=== PATIENT | female | born 1950 | race Caucasian/White ===

== ENCOUNTER 2016-11-25 16:08 | Inpatient (IN) | payer BC ==
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
[2016-11-25 16:25] VITALS: BMI 45.4
[2016-11-25] MEDS ORDERED: ALBUTEROL SO4 2.5/IPRATROPIUM 0.5 INH SOL 3 ML VIAL.NEB. NEB ONE ×3 (16:40→18:20)
[2016-11-25] MEDS ORDERED: predniSONE 20 MG TABLET (UD) PO ONE (16:59)
[2016-11-25] MEDS ORDERED: MAGNESIUM SULF 50% (8.12 MEQ/2 ML-1 GM VIAL) IVPB ONE ×2 (16:59→17:04)
[2016-11-25] MEDS ORDERED: AZITHROMYCIN IVPB 500 MG in DEXTROSE 5%-WATER - 250 ML IVPB ONE (17:10)
[2016-11-25 17:23] LABS: MCHC 33.7 g/dl (32.0-36.0); MEAN CELL VOLUME 91.9 fl (80-96); MEAN PLT VOLUME 8.2 fl (7.5-11.1); PLATELET COUNT 335 K/MM3 (134-434); RDW 13.6 % (11.6-15.6); WHITE BLOOD COUNT 6.6 K/mm3 (4.0-10.0)
[2016-11-25] MEDS ORDERED: AZITHROMYCIN IVPB 250 ML IVPB ONE (17:42)
--- NOTE | 2016-11-25 17:48 | PDOC ---
Attending Attestation - Resident Resident Name: DanetteRaphaela - ED Attending Attestation I have performed the following: I have examined & evaluated the patient, The case was reviewed & discussed with the resident, I agree w/resident's findings & plan, Exceptions are as noted - HPI HPI: 11/25/16 17:46 66-year-old female with past medical history of COPD, hypertension, hyperlipidemia, depression presents to the emergency department for 5 days of fever and worsening wheezing and chest congestion. MAXIMUM TEMPERATURE was 102 at home. The patient reports that she was treated month ago with steroids and Levaquin which improved her symptoms. However, patient now started feel short of breath and wheezing significantly. Denies chest pain. - Physicial Exam PE: 11/25/16 17:47 GENERAL: Awake, alert, and fully oriented, in no acute distress. HEAD: No signs of trauma EYES: PERRLA, EOMI, sclera anicteric, conjunctiva clear ENT: Auricles normal inspection, hearing grossly normal, nares patent, oropharynx clear without exudates. NECK: Normal ROM, supple, no lymphadenopathy, JVD, or masses LUNGS: Tight breath sounds and expiratory wheezing bilaterally HEART: Regular rate and rhythm, normal S1 and S2, no murmurs, rubs or gallops ABDOMEN: Soft, nontender, normoactive bowel sounds. No guarding, no rebound. No masses EXTREMITIES: Normal range of motion, no edema. No clubbing or cyanosis. No cords, erythema, or tenderness NEUROLOGICAL: Cranial nerves II through XII grossly intact. Normal speech, normal gait SKIN: Warm, Dry, normal turgor, no rashes or lesions noted. - Medical Decision Making 11/25/16 17:47 Chest x-ray reviewed. No evidence of pneumonia. However, the patient's significant wheezy suggestive of COPD exacerbation. We'll give nebulizers, steroids, empiric IV azithromycin. We'll need to consider admission if symptoms do not improve. ECG: NSR 75, no std/noemy, normal axis, normal intervals, TWI V2, QTC 509 msec
[2016-11-25 17:59] LABS: ALBUMIN 3.5 g/dl (3.4-5.0); ANION GAP 11 (8-16); BILIRUBIN,TOTAL 0.5 mg/dL (0.2-1.0); CALCIUM 8.4 mg/dL (8.5-10.1); CO2 28 mmol/L (21-32); CREATININE 0.7 mg/dL (0.55-1.02); GLUCOSE,RANDOM 135 mg/dL (74-106); SGOT/AST 28 U/L (15-37); SGPT/ALT 44 U/L (12-78)
[2016-11-25 18:00] LABS: ALK PHOS 82 U/L (45-117); TOT PROT 6.9 g/dl (6.4-8.2)
[2016-11-25 18:21] LABS: TROPONIN I < 0.02 ng/ml (0.00-0.05)
[2016-11-25] MEDS ORDERED: ROSUVASTATIN CA 10 MG TABLET (FP) PO SCH (22:00)
--- NOTE | 2016-11-25 23:04 | HP ---
Admitting History and Physical - Admission Chief Complaint: fever sob wheezing History of Present Illness: copd exacerbation with fever 101 then 100 malaise, headache was treated last month with levofloxacin and prednisone did not take flu and pneumococcal vaccine she is current smoker poor appetite, weight loss no nausea or vomiting History Source: Patient - Past Medical History Pulmonary: Yes: COPD - Smoking History Smoking history: Current every day smoker Have you smoked in the past 12 months: Yes Aproximately how many cigarettes per day: 6 - Alcohol/Substance Use Hx Alcohol Use: No Home Medications - Allergies Allergies/Adverse Reactions: Allergies Allergy/AdvReac Type Severity Reaction Status Date / Time No Known Drug Allergies Allergy Verified 11/25/16 21:07 CATS Allergy Uncoded 11/25/16 16:25 - Home Medications Home Medications: Ambulatory Orders Atenolol [Tenormin -] 50 mg PO DAILY 04/19/13 Albuterol Sulfate Inhaler - [Ventolin HFA Inhaler -] 1 - 2 inh PO QID #1 inhaler 03/01/15 Aspirin [Ecotrin] 81 mg PO DAILY 03/01/15 Cholecalciferol (Vitamin D3) [Vitamin D3] 1,000 unit PO DAILY 03/01/15 Quetiapine Fumarate [Seroquel -] 12.5 mg PO HS 03/01/15 Rosuvastatin Calcium [Crestor] 10 mg PO HS 03/01/15 Zolpidem Tartrate [Ambien] 10 mg PO HS 03/01/15 Review of Systems - Review of Systems Constitutional: reports: Chills, Fever, Loss of Appetite, Malaise, Unintentional Wgt. Loss Eyes: reports: No Symptoms HENT: reports: Nasal Congestion Neck: reports: No Symptoms Cardiovascular: reports: No Symptoms Respiratory: reports: Cough, SOB, SOB on Exertion, Wheezing Gastrointestinal: reports: No Symptoms Genitourinary: reports: No Symptoms Breasts: reports: No Symptoms Reported Integumentary: reports: No Symptoms Neurological: reports: No Symptoms Endocrine: reports: No Symptoms Hematology/Lymphatic: reports: No Symptoms Psychiatric: reports: No Symptoms Physical Examination Vital Signs: Vital Signs Temperature 98.7 F 11/25/16 16:22 Pulse Rate 63 11/25/16 19:44 Respiratory Rate 20 11/25/16 19:44 Blood Pressure 114/74 11/25/16 19:44 O2 Sat by Pulse Oximetry (%) 93 L 11/25/16 19:44 Constitutional: Yes: Obese Eyes: Yes: WNL, Conjunctiva Clear, EOM Intact HENT: Yes: WNL, Atraumatic, Normocephalic Neck: Yes: WNL, Supple, Trachea Midline Cardiovascular: Yes: WNL, Regular Rate and Rhythm Respiratory: Yes: Accessory Muscle Use, Wheezes Gastrointestinal: Yes: WNL, Normal Bowel Sounds Renal/: Yes: WNL Breast(s): Yes: WNL Musculoskeletal: Yes: WNL Extremities: Yes: WNL Edema: No Integumentary: Yes: WNL Neurological: Yes: WNL, Alert, Oriented ...Motor Strength: WNL Psychiatric: Yes: WNL Assessment/Plan acute resp failure copd acute exacerbation with fever headaches r/o lower resp tract nfection cxr is s infiltrate with diffuse aeration probable panlobular acute sinusitis? obesity current smoker mild elev BNP- r/o underlying heart disease r/o influenza Plan- iv corticosteroids albuterol pulm consult ID consult
[2016-11-25] MEDS: QUEtiapine FUMARATE 25 MG TABLET (FP) PO SCH (23:41)
[2016-11-25] MEDS: ZOLPIDEM TARTRATE 5 MG TABLET PO PRN (23:42)
[2016-11-25] MEDS: NICOTINE 21 MG/24 HOURS TOPICAL PATCH TD SCH (23:49)
[2016-11-26] MEDS: ASPIRIN COATED 81 MG TABLET.EC PO SCH ×2 (00:10→21:42)
[2016-11-26] MEDS: ALBUTEROL SO4 2.5/IPRATROPIUM 0.5 INH SOL 3 ML VIAL.NEB. NEB SCH ×3 (01:15→11:48)
[2016-11-26] MEDS: HYDROCORTISONE SOD SUCCINATE 100 MG/2 ML VIAL IVPB SCH ×3 (02:41→17:46)
--- NOTE | 2016-11-26 08:32 | PN ---
Progress Note (short form) - Note Progress Note: Cardiology Consult for Steven Dicated IMP: Chronic COPD, smoker Likely acute exacerbation chronic COPD triggered by viral illness/URI Chronic HTN Obesity with suspected PINKY and chronic diastolic dysfx REC: Pulmonary evaluation and optimization as per PMD and Pulmonary Echo to assess LVEF and for presence of PHTN Would not diurese at this time unless becomes clinically volume overloaded which can happen at times with steroid Rx
[2016-11-26] MEDS ORDERED: ASPIRIN COATED 81 MG TABLET.EC PO SCH (10:00)
[2016-11-26] MEDS ORDERED: CEFTRIAXONE 1 GM in DEXTROSE 5%-WATER - 50 ML IVPB SCH (10:00)
[2016-11-26] MEDS: NICOTINE 21 MG/24 HOURS TOPICAL PATCH TD SCH (10:08)
[2016-11-26] MEDS: CHOLECALCIFEROL (VITAMIN D3) 1,000 UNIT TABLET (FP) PO SCH (10:08)
[2016-11-26] MEDS: cefTRIAXone 1 GM/50 ML BAG (PRE-DOCKED) IVPB SCH (10:08)
--- NOTE | 2016-11-26 10:14 | CONS ---
DATE OF CONSULTATION: 11/26/2016 REQUESTING PHYSICIAN: Al Doyle MD CHIEF COMPLAINT: Cough, fever, shortness of breath. HISTORY OF PRESENT ILLNESS: A 66-year-old female with chronic smoking, chronic COPD, hypertension whose history of present illness began about 4 weeks ago when she began experiencing a dry cough and sore throat at which time she was evaluated by her primary care physician and treated with a cough or antibiotics and prednisone. She reports initial improvement for about 1 week and then began feeling cough with congestion, unable to loosen her phlegm. This then progressed into fevers for about 4 days of 100-102 with no improvement prompting her to come to the emergency room last night for cough, fever, and associated shortness of breath. She denies chest pain, edema, PND, or orthopnea. She denies prior cardiac history. No previous myocardial infarctions. Denies history of coronary revascularization. PAST MEDICAL HISTORY: Insomnia, hyperlipidemia, possible depression, chronic COPD. ALLERGIES: CATS. MEDICATIONS: Home medications: Ambien 10 nightly, Crestor 10 nightly, Seroquel 12.5 nightly, vitamin D3 takes 1000 units daily, atenolol 50 mg daily, aspirin 81 mg daily, albuterol as needed. Medications here include: Albuterol q.i.d. p.r.n., aspirin 81 daily, atenolol 50 mg daily, ceftriaxone 1 g IV daily, vitamin D3 takes 1000 units daily, Solu-Cortef 100 mg IV q.8, icotine patch, Seroquel 12.5 nightly, Crestor 10 nightly, Ambien 10 nightly p.r.n. FAMILY HISTORY: Noncontributory. SOCIAL HISTORY: The patient smokes 6 cigarettes a day. Denies alcohol. 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 Lives alone. PHYSICAL EXAMINATION: Vital Signs: She is afebrile on physical exam with blood pressure of 131/70, O2 saturation 96 on 3 L. Neck: No JVD. Heart: S1, S2, regular. No murmurs. Chest: Scattered rhonchi and mild expiratory wheezing diffusely. Abdomen: Obese, soft, nontender. Extremities: No significant edema. Chest x-ray report was reviewed. No acute infiltrates. LABS: White count 6.6, hematocrit 43, platelets 335. Sodium 134, potassium 4.3, creatinine 0.7, lactic acid 2.4. LFTs were normal. CK and troponin were negative x1 set. BNP was mildly above the accepted upper limit of normal at 422. EKG showed normal sinus at 75 beats per minute with nonspecific ST changes and a mildly prolonged QT interval. IMPRESSION: 1. Chronic obstructive pulmonary disease, chronic smoker. 2. Likely acute on chronic exacerbation of chronic obstructive pulmonary disease triggered by a viral illness/upper respiratory infection. 3. Chronic, well-controlled hypertension. 4. Obesity with suspected obstructive sleep apnea and probable chronic diastolic dysfunction secondary to hypertension and suspected obstructive sleep apnea. RECOMMENDATIONS: 1. Pulmonary evaluation and optimization of antibiotics, steroids, and inhalers as per primary medical doctor and Pulmonary. 2. We will obtain an echocardiogram to assess LV function and to check for the presence of pulmonary hypertension. 3. BNP is at the upper limit of normal. I would not diurese her at this time unless she becomes clinically volume overloaded, which can sometimes happen with steroid treatment. 4. The QT interval is mildly prolonged. This may be due to Seroquel. We will obtain Holter monitor to assess for any ventricular ectopy and check daily EKGs. Please keep potassium greater than 4 and magnesium greater than 2. Kody Archer dictating for Dr. Harris. Erma [id number]
[2016-11-26] MEDS: ATENOLOL 50 MG TABLET (FP) PO SCH (10:21)
--- NOTE | 2016-11-26 13:15 | PN ---
Progress Note (short form) - Note Progress Note: ID consult dictated 66 year old female with obesity, copd, active smoker- lives alone, deveropd cough and chest congestion mid October- she took a day course of levaquin and prednisone and felt better, about one week later she developed fever, chills , chest congestion and headache- she spoke to her PMD and took another course of levaquin and prednisone. Her fevers resolved but she had continued chest congestion, she took mucinex for one week with no improvement and came to ED she has not had fever for one week no nausea or vomiting no hemoptysis nonproductive cough no history TB [place] citizen- here for thirty years severely depressed, never goes out of her apt, groceries delivered! copd exacerbation ?bronchitis possible OSAS continue rocephin/steroids/nebs consider Chest CT smoking cessation weight loss pulmonary evaluation
--- NOTE | 2016-11-26 14:29 | PN ---
Progress Note (short form) - Note Progress Note: copd obese s/o uri, no response to abx and steroids Current Medications Albuterol/Ipratropium (Duoneb -) 1 amp NEB QIDR [facility] Last Admin: 11/26/16 11:48 Dose: 1 amp Aspirin (Ecotrin -) 81 mg PO HS [facility] Last Admin: 11/26/16 00:10 Dose: 81 mg Atenolol (Tenormin -) 50 mg PO DAILY [facility] Last Admin: 11/26/16 10:21 Dose: 50 mg Ceftriaxone Sodium (Rocephin 1gm Ivpb (Pre-Docked)) 1 gm IVPB DAILY [facility] Last Admin: 11/26/16 10:08 Dose: 1 gm Cholecalciferol (Vitamin D3 -) 1,000 unit PO DAILY [facility] Last Admin: 11/26/16 10:08 Dose: 1,000 unit Hydrocortisone Sodium Succinate (Solu-Cortef -) 100 mg IVPB Q8H-IV [facility] Last Admin: 11/26/16 10:08 Dose: 100 mg Nicotine (Nicoderm Patch -) 21 mg TD DAILY [facility] Last Admin: 11/26/16 10:08 Dose: 21 mg Quetiapine Fumarate (Seroquel -) 12.5 mg PO HS [facility] Last Admin: 11/25/16 23:41 Dose: 12.5 mg Rosuvastatin Calcium (Crestor -) 10 mg PO HS [facility] Last Admin: 11/25/16 23:41 Dose: 10 mg Rosuvastatin Calcium (Crestor -) 10 mg PO HS [facility] Zolpidem Tartrate (Ambien -) 10 mg PO HS PRN PRN Reason: INSOMNIA Last Admin: 11/25/16 23:42 Dose: 10 mg Last Vital Signs Temp Pulse Resp BP Pulse Ox 97.8 F 83 20 145/96 95 11/26/16 09:00 11/26/16 09:00 11/26/16 09:00 11/26/16 09:00 11/26/16 09:00 CBC, BMP 11/25/16 16:37 11/25/16 16:37 ID and Cardiology evals appreciated will check ct scan of chest to eval for chest patholoy given she is a smoker acute resp failure copd acute exacerbation with fever headaches r/o lower resp tract nfection cxr is s infiltrate with diffuse aeration probable panlobular acute sinusitis? obesity current smoker mild elev BNP- r/o underlying heart disease r/o influenza Plan- iv corticosteroids albuterol pulm consult ID consult
--- NOTE | 2016-11-26 15:53 | CONS ---
INFECTIOUS DISEASE CONSULTATION DATE OF CONSULTATION: DATE OF DICTATION: 11/26/2016 REQUESTING PHYSICIAN: Al Doyle M.D. This is a 66-year-old woman who has a past medical history of COPD and hypertension and depression. She felt sick sometime around her birthday, which was November 08, 2014. She started having cough and chest congestion. She saw her PMD who gave her 5 days of Levaquin and 7 days of prednisone, which she completed with improvement. Then about a week later she again developed this time fever with cough and wheezing and chest congestion. She called her PMD this time who again prescribed 5 days of Levaquin and 7 days of prednisone, which she took. Upon completion, which was last , last Monday, she continued to have chest congestion. She spoke to her pharmacist and put herself on Mucinex for a week. She continued to have progressive chest congestion. She was unable to sleep and she presented to the emergency room. She reports for the last 1 week she has had no fever at all. The prior week she had fevers and chills. She denies sore throat. The headache has resolved. She has no diarrhea or constipation. She lost about 5 pounds when she was sick, but otherwise there is no nausea or vomiting and she currently reports feeling improved. ALLERGIES: SHE IS ALLERGIC TO CATS. MEDICATIONS: At home includes atenolol, Ventolin inhaler, which she rarely uses, aspirin, vitamin D, Seroquel, and Crestor as well as Ambien. PAST MEDICAL HISTORY: Notable for COPD. She has a history of hypertension, hypercholesterolemia, and depression. SURGICAL HISTORY: Notable for a hysterectomy, right breast cyst removal, and in 2001 she had left ankle surgery and she ultimately had 4 surgeries and the hardware was removed. She reports having been hospitalized in the past for pneumonia and COPD exacerbation. FAMILY HISTORY: Notable for lung cancer in her father. SOCIAL HISTORY: She is . She never goes out. She lives alone in an apartment. She orders her groceries in. She notes she is severely depressed since the of her 3 years ago. She is originally from [place] and she has been in this country for 30 years. She has had during this depression a significant weight gain of at least 20 or 30 pounds. There is no history of any tuberculosis in the past. She is an active smoker and drinks alcohol as well. She smokes about 6 cigarettes a day. REVIEW OF SYSTEMS: Notable for nasal congestion. She has loss of appetite and she has chest congestion with a nonproductive cough. She has resolution of headache and there is no fever. PHYSICAL EXAMINATION: General: She is awake and alert. She reports feeling better since admission. Vital Signs: Temperature of 98, blood pressure of 131/69, pulse of 73, and respiratory rate of 20. Weight: 289 pounds. HEENT: She is normocephalic. Her eyes are anicteric. She has no thrush. Lungs: Diffuse wheezing throughout. Heart: Regular rate and rhythm. Abdomen: Soft. Extremities: Trace pedal edema. LABORATORY DATA: White count of 6.6, hemoglobin of 14.6, and platelets of 335. BUN and creatinine are 11 and 0.7. Liver function tests are normal. Her influenza screen was done which was negative and blood cultures are pending. DIAGNOSTIC DATA: Chest x-ray was done that shows no acute disease. IN SUMMARY: This is an obese 66-year-old woman with severe depression who is having a chronic obstructive pulmonary disease exacerbation. Possible bronchitis. Possible obstructive sleep apnea. I would continue her on Rocephin, steroids, and nebulizers for now. I would consider a chest CT, smoking cessation, and weight loss, and a pulmonary evaluation which is pending at this time. JOSEY DELGADO M.D. [id number]
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
[2016-11-26] MEDS: TIOTROPIUM BROMIDE 18 MCG/INH (DEVICE W/ 5 CAPSULES) IH SCH ×2 (19:53→21:33)
[2016-11-26] MEDS: QUEtiapine FUMARATE 25 MG TABLET (FP) PO SCH (21:41)
[2016-11-26] MEDS: ROSUVASTATIN CA 10 MG TABLET (FP) PO SCH (21:42)
[2016-11-26] MEDS: ZOLPIDEM TARTRATE 5 MG TABLET PO PRN (21:42)
[2016-11-26] MEDS ORDERED: QUEtiapine FUMARATE 25 MG TABLET (FP) PO SCH (22:00)
[2016-11-27] MEDS: ALBUTEROL SO4 2.5/IPRATROPIUM 0.5 INH SOL 3 ML VIAL.NEB. NEB SCH ×5 (00:07→23:34)
[2016-11-27] MEDS: HYDROCORTISONE SOD SUCCINATE 100 MG/2 ML VIAL IVPB SCH ×3 (01:42→18:01)
[2016-11-27 07:16] LABS: MCH 30.9 pg (25.7-33.7); MCHC 33.1 g/dl (32.0-36.0); MEAN CELL VOLUME 93.3 fl (80-96); MEAN PLT VOLUME 8.3 fl (7.5-11.1); PLATELET COUNT 279 K/MM3 (134-434); RDW 13.4 % (11.6-15.6); WHITE BLOOD COUNT 5.6 K/mm3 (4.0-10.0)
[2016-11-27 08:01] LABS: ALBUMIN 3.3 g/dl (3.4-5.0); ALK PHOS 68 U/L (45-117); ANION GAP 11 (8-16); BILIRUBIN,TOTAL 0.4 mg/dL (0.2-1.0); CO2 30 mmol/L (21-32); CREATININE 0.8 mg/dL (0.55-1.02); GLUCOSE,RANDOM 174 mg/dL (74-106); SGOT/AST 15 U/L (15-37); SGPT/ALT 33 U/L (12-78); TOT PROT 6.3 g/dl (6.4-8.2)
[2016-11-27] MEDS: cefTRIAXone 1 GM/50 ML BAG (PRE-DOCKED) IVPB SCH (09:28)
[2016-11-27] MEDS: NICOTINE 21 MG/24 HOURS TOPICAL PATCH TD SCH (09:28)
[2016-11-27] MEDS: TIOTROPIUM BROMIDE 18 MCG/INH (DEVICE W/ 5 CAPSULES) IH SCH (09:30)
[2016-11-27] MEDS: ATENOLOL 50 MG TABLET (FP) PO SCH (09:30)
[2016-11-27] MEDS: CHOLECALCIFEROL (VITAMIN D3) 1,000 UNIT TABLET (FP) PO SCH (09:30)
--- NOTE | 2016-11-27 09:38 | EKG ---
Test Reason : Blood Pressure : / mmHG Vent. Rate : 055 BPM Atrial Rate : 055 BPM P-R Int : 164 ms QRS Dur : 076 ms QT Int : 488 ms P-R-T Axes : -09 022 059 degrees QTc Int : 466 ms SINUS BRADYCARDIA OTHERWISE NORMAL ECG Confirmed by JCARLOS KUMAR MD ([id number]) on 11/27/2016 9:37:53 AM Referred By: Peter GONZALEZ Confirmed By:JCARLOS KUMAR MD
--- NOTE | 2016-11-27 09:43 | EKG ---
Test Reason : Blood Pressure : / mmHG Vent. Rate : 075 BPM Atrial Rate : 075 BPM P-R Int : 158 ms QRS Dur : 076 ms QT Int : 456 ms P-R-T Axes : -14 011 053 degrees QTc Int : 509 ms POOR DATA QUALITY, INTERPRETATION MAY BE ADVERSELY AFFECTED NORMAL SINUS RHYTHM PROLONGED QT NONSPECIFIC ST ABNORMALITY ABNORMAL ECG Confirmed by JCARLOS KUMAR MD ([id number]) on 11/27/2016 9:43:14 AM Referred By: Confirmed By:JCARLOS KUMAR MD
--- NOTE | 2016-11-27 19:43 | PN ---
Progress Note (short form) - Note Progress Note: pulm consult noted copd obese s/o uri, no response to abx and steroids Current Medications Albuterol/Ipratropium (Duoneb -) 1 amp NEB QIDR [facility] Last Admin: 11/27/16 17:51 Dose: 1 amp Aspirin (Ecotrin -) 81 mg PO HS [facility] Last Admin: 11/26/16 21:42 Dose: 81 mg Atenolol (Tenormin -) 50 mg PO DAILY [facility] Last Admin: 11/27/16 09:30 Dose: 50 mg Ceftriaxone Sodium (Rocephin 1gm Ivpb (Pre-Docked)) 1 gm IVPB DAILY [facility] Last Admin: 11/27/16 09:28 Dose: 1 gm Cholecalciferol (Vitamin D3 -) 1,000 unit PO DAILY [facility] Last Admin: 11/27/16 09:30 Dose: 1,000 unit Hydrocortisone Sodium Succinate (Solu-Cortef -) 200 mg IVPB Q8H-IV [facility] Last Admin: 11/27/16 18:01 Dose: 200 mg Nicotine (Nicoderm Patch -) 21 mg TD DAILY [facility] Last Admin: 11/27/16 09:28 Dose: 21 mg Quetiapine Fumarate (Seroquel -) 12.5 mg PO HS [facility] Last Admin: 11/26/16 21:41 Dose: 12.5 mg Rosuvastatin Calcium (Crestor -) 10 mg PO HS [facility] Last Admin: 11/26/16 21:42 Dose: 10 mg Tiotropium [place] (Spiriva -) 1 puff IH DAILY [facility] Last Admin: 11/27/16 09:30 Dose: 1 puff Zolpidem Tartrate (Ambien -) 10 mg PO HS PRN PRN Reason: INSOMNIA Last Admin: 11/26/16 21:42 Dose: 10 mg Last Vital Signs Temp Pulse Resp BP Pulse Ox 97.9 F 65 20 133/67 94 L 11/27/16 17:00 11/27/16 17:00 11/27/16 17:00 11/27/16 17:00 11/27/16 09:00 CBC, BMP 11/27/16 06:00 11/27/16 06:00 ID and Cardiology evals appreciated will check ct scan of chest to eval for chest patholoy given she is a smoker acute resp failure copd acute exacerbation with fever headaches r/o lower resp tract nfection cxr is s infiltrate with diffuse aeration probable panlobular acute sinusitis? obesity current smoker mild elev BNP- r/o underlying heart disease r/o influenza Plan- iv corticosteroids albuterol pulm consult ID consult
[2016-11-27] MEDS ORDERED: LORazepam 0.5 MG TABLET PO PRN (19:48)
[2016-11-27] MEDS: QUEtiapine FUMARATE 25 MG TABLET (FP) PO SCH (22:10)
[2016-11-27] MEDS: ZOLPIDEM TARTRATE 5 MG TABLET PO PRN (22:10)
[2016-11-27] MEDS: ASPIRIN COATED 81 MG TABLET.EC PO SCH (22:10)
[2016-11-27] MEDS: ROSUVASTATIN CA 10 MG TABLET (FP) PO SCH (22:10)
[2016-11-27] MEDS: FLUTICASONE PROP 0.05% 16 GM NASAL SPRAY NS SCH (22:11)
[2016-11-28] MEDS: HYDROCORTISONE SOD SUCCINATE 100 MG/2 ML VIAL IVPB SCH ×3 (01:30→18:16)
[2016-11-28] MEDS: ALBUTEROL SO4 2.5/IPRATROPIUM 0.5 INH SOL 3 ML VIAL.NEB. NEB SCH ×3 (06:40→18:15)
[2016-11-28] MEDS ORDERED: PT OWN MED DRAWER 7, Y5N ONE (09:24)
[2016-11-28] MEDS: LORATADINE 10 MG TABLET PO SCH (09:27)
[2016-11-28] MEDS: ATENOLOL 50 MG TABLET (FP) PO SCH (09:27)
[2016-11-28] MEDS: TIOTROPIUM BROMIDE 18 MCG/INH (DEVICE W/ 5 CAPSULES) IH SCH (09:28)
[2016-11-28] MEDS: FLUTICASONE PROP 0.05% 16 GM NASAL SPRAY NS SCH ×2 (09:28→22:18)
[2016-11-28] MEDS: NICOTINE 21 MG/24 HOURS TOPICAL PATCH TD SCH (09:28)
[2016-11-28] MEDS: CHOLECALCIFEROL (VITAMIN D3) 1,000 UNIT TABLET (FP) PO SCH (09:28)
[2016-11-28] MEDS: cefTRIAXone 1 GM/50 ML BAG (PRE-DOCKED) IVPB SCH (09:30)
[2016-11-28] MEDS ORDERED: HYDROCORTISONE SOD SUCCINATE 2 ML ONE (12:10)
--- NOTE | 2016-11-28 13:22 | PN ---
Progress Note, Physician History of Present Illness: Patient is a 66 year old female with significant PMH of HTN, HLD, Depression and COPD who presents to ED with shortness of breath. She states she had URI symptoms 1month ago including a runny nose and cough. She went to her PCP and was given Levaquin and a course of Methylprednisolone. She felt better up until 1 week ago when she started to feel feverish. She was 102.4 degrees earlier this week and started to develop a cough. No sputum expectorated but she feels very congested. Patient also complains of intermittent chills, & shortness of breath, notably when she lies flat on her back. Patient denies sore throat, visual changes, diarrhea, constipation, nausea, vomiting, chest pain or abdominal pain. - Current Medication List Current Medications: Active Medications Albuterol/Ipratropium (Duoneb -) 1 amp NEB QIDR [facility] Last Admin: 11/28/16 11:08 Dose: 1 amp Aspirin (Ecotrin -) 81 mg PO HS [facility] Last Admin: 11/27/16 22:10 Dose: 81 mg Atenolol (Tenormin -) 50 mg PO DAILY [facility] Last Admin: 11/28/16 09:27 Dose: 50 mg Ceftriaxone Sodium (Rocephin 1gm Ivpb (Pre-Docked)) 1 gm IVPB DAILY [facility] Last Admin: 11/28/16 09:30 Dose: 1 gm Cholecalciferol (Vitamin D3 -) 1,000 unit PO DAILY [facility] Last Admin: 11/28/16 09:28 Dose: 1,000 unit Fluticasone Propionate (Flonase -) 1 spray NS BID [facility] Last Admin: 11/28/16 09:28 Dose: 1 spray Hydrocortisone Sodium Succinate (Solu-Cortef -) 200 mg IVPB Q8H-IV [facility] Last Admin: 11/28/16 12:32 Dose: 200 mg Loratadine (Claritin -) 10 mg PO DAILY [facility] Last Admin: 11/28/16 09:27 Dose: 10 mg Lorazepam (Ativan -) 0.5 mg PO Q12H PRN PRN Reason: ANXIETY Last Admin: 11/28/16 09:45 Dose: 0.5 mg Nicotine (Nicoderm Patch -) 21 mg TD DAILY [facility] Last Admin: 11/28/16 09:28 Dose: 21 mg Quetiapine Fumarate (Seroquel -) 12.5 mg PO HS [facility] Last Admin: 11/27/16 22:10 Dose: 12.5 mg Rosuvastatin Calcium (Crestor -) 10 mg PO HS [facility] Last Admin: 11/27/16 22:10 Dose: 10 mg Tiotropium [place] (Spiriva -) 1 puff IH DAILY [facility] Last Admin: 11/28/16 09:28 Dose: 1 puff Zolpidem Tartrate (Ambien -) 10 mg PO HS PRN PRN Reason: INSOMNIA Last Admin: 11/27/16 22:10 Dose: 10 mg - Objective Vital Signs: Vital Signs Temperature 98.3 F 11/28/16 09:00 Pulse Rate 72 11/28/16 11:07 Respiratory Rate 20 11/28/16 09:00 Blood Pressure 126/70 11/28/16 09:00 O2 Sat by Pulse Oximetry (%) 97 11/28/16 11:07 Eyes: Yes: WNL, Conjunctiva Clear, EOM Intact HENT: Yes: WNL, Atraumatic, Normocephalic Neck: Yes: WNL, Supple, Trachea Midline Cardiovascular: Yes: WNL, Regular Rate and Rhythm Respiratory: Yes: Diminished, Dullness, Rhonchi Gastrointestinal: Yes: WNL, Normal Bowel Sounds Genitourinary: Yes: WNL Musculoskeletal: Yes: WNL Extremities: Yes: WNL Edema: No Integumentary: Yes: WNL Neurological: Yes: WNL, Alert, Oriented ...Motor Strength: WNL Psychiatric: Yes: WNL Assessment/Plan IMP: Chronic COPD, smoker Likely acute exacerbation chronic COPD triggered by viral illness/URI Chronic HTN Obesity with suspected PINKY and chronic diastolic dysfx REC: Pulmonary evaluation and optimization as per PMD and Pulmonary Echo to assess LVEF and for presence of PHTN Would not diurese at this time unless becomes clinically volume overloaded which can happen at times with steroid Rx
--- NOTE | 2016-11-28 14:50 | PN ---
Progress Note (short form) - Note Progress Note: still wheezing still with nasal congestion Vital Signs Period Temp Pulse Resp BP Sys/Negron Pulse Ox Last 24 Hr 97.7 F-98.3 F 65-80 20-20 126-164/63-87 95-97 cor-rrr llungs bilateral wheeze abd soft,nt ext no edema CBC, BMP 11/27/16 06:00 11/27/16 06:00 Current Medications Albuterol/Ipratropium (Duoneb -) 1 amp NEB QIDR [facility] Last Admin: 11/28/16 11:08 Dose: 1 amp Aspirin (Ecotrin -) 81 mg PO HS [facility] Last Admin: 11/27/16 22:10 Dose: 81 mg Atenolol (Tenormin -) 50 mg PO DAILY [facility] Last Admin: 11/28/16 09:27 Dose: 50 mg Ceftriaxone Sodium (Rocephin 1gm Ivpb (Pre-Docked)) 1 gm IVPB DAILY [facility] Last Admin: 11/28/16 09:30 Dose: 1 gm Cholecalciferol (Vitamin D3 -) 1,000 unit PO DAILY [facility] Last Admin: 11/28/16 09:28 Dose: 1,000 unit Fluticasone Propionate (Flonase -) 1 spray NS BID [facility] Last Admin: 11/28/16 09:28 Dose: 1 spray Hydrocortisone Sodium Succinate (Solu-Cortef -) 200 mg IVPB Q8H-IV [facility] Last Admin: 11/28/16 12:32 Dose: 200 mg Loratadine (Claritin -) 10 mg PO DAILY [facility] Last Admin: 11/28/16 09:27 Dose: 10 mg Lorazepam (Ativan -) 0.5 mg PO Q12H PRN PRN Reason: ANXIETY Last Admin: 11/28/16 09:45 Dose: 0.5 mg Nicotine (Nicoderm Patch -) 21 mg TD DAILY [facility] Last Admin: 11/28/16 09:28 Dose: 21 mg Quetiapine Fumarate (Seroquel -) 12.5 mg PO HS [facility] Last Admin: 11/27/16 22:10 Dose: 12.5 mg Rosuvastatin Calcium (Crestor -) 10 mg PO HS [facility] Last Admin: 11/27/16 22:10 Dose: 10 mg Tiotropium [place] (Spiriva -) 1 puff IH DAILY [facility] Last Admin: 11/28/16 09:28 Dose: 1 puff Zolpidem Tartrate (Ambien -) 10 mg PO HS PRN PRN Reason: INSOMNIA Last Admin: 11/27/16 22:10 Dose: [address] no infiltrate sinus ct no sinusitis a/p copd exacerbation- rocephin to continue per pulmonary (note reviewed) check rsv antigen ?viral smoking cessation obesity
--- NOTE | 2016-11-28 15:53 | HOL ---
Hook-up date: 2016-11-27 14:37:00 Duration: 22:55:00 Test Indications: PROLONGED QT Medications: 50423 QRS complexes 3 Ventricular ectopics which represent <1 % of total QRS comp. 421 Supraventricular ectopics which represent <1 % of total QRS comp. * Paced QRS complexs which represent % of total QRS comp. 4 % of Time Classified as Noise VENTRICULAR ECTOPY 3 Isolated 0 Bigeminal Cycles 0 Couplets 0 Runs 0 Beats in Runs * Beats LONGEST at * BPM at :: -- * Beats FASTEST at * BPM at :: -- SUPRAVENTRICULAR ECTOPY 317 Isolated 17 Couplets 15 Runs 70 Beats in Runs 11 Beats LONGEST at 128 BPM at 07:28:17 2016-11-28 5 Beats FASTEST at 137 BPM at 07:28:12 2016-11-28 HEART RATES 49 MIN at 03:47:48 2016-11-28 74 AVG 110 MAX at 09:49:08 2016-11-28 LONGEST RR 1.400 secs at 02:18:55 2016-11-28 1. BASELINE RHYTHM APPEARS TO BE SINUS RHYTHM WITH AVERAGE HR OF 74 BPM. RATES VARIED BETWEEN 49 BPM TO 110 BPM. 2. RARE VENTRICULAR ECTOPIES (PVCS) 3. OCCASIONAL ATRIAL ECTOPIES INCLUDING 317 APCS AND 17 COULPLETS. 15 RUNS OF NONSUSTAINED ATRIAL ARRHYTHMIAS LIKELY REPRESENT ATRIAL TACHYCARDIA. 4. NO ST-T WAVE VARIATIONS WERE SEEN SCANNED BY ADELITA BARRAGAN 11/28/2016 NO DIARY SUBMITTED Confirmed by SHANEL GORDON MD ([id number]) on 11/28/2016 3:52:56 PM Referred By: Overread By: SHANEL GORDON MD
--- NOTE | 2016-11-28 18:07 | PN ---
Progress Note, Physician History of Present Illness: Pt less dyspneic though still has mild wheezing and ORTEZ - Current Medication List Current Medications: Active Medications Albuterol/Ipratropium (Duoneb -) 1 amp NEB QIDR [facility] Last Admin: 11/28/16 11:08 Dose: 1 amp Aspirin (Ecotrin -) 81 mg PO HS [facility] Last Admin: 11/27/16 22:10 Dose: 81 mg Atenolol (Tenormin -) 50 mg PO DAILY [facility] Last Admin: 11/28/16 09:27 Dose: 50 mg Ceftriaxone Sodium (Rocephin 1gm Ivpb (Pre-Docked)) 1 gm IVPB DAILY [facility] Last Admin: 11/28/16 09:30 Dose: 1 gm Cholecalciferol (Vitamin D3 -) 1,000 unit PO DAILY [facility] Last Admin: 11/28/16 09:28 Dose: 1,000 unit Fluticasone Propionate (Flonase -) 1 spray NS BID [facility] Last Admin: 11/28/16 09:28 Dose: 1 spray Hydrocortisone Sodium Succinate (Solu-Cortef -) 200 mg IVPB Q8H-IV [facility] Last Admin: 11/28/16 12:32 Dose: 200 mg Loratadine (Claritin -) 10 mg PO DAILY [facility] Last Admin: 11/28/16 09:27 Dose: 10 mg Lorazepam (Ativan -) 0.5 mg PO Q12H PRN PRN Reason: ANXIETY Last Admin: 11/28/16 09:45 Dose: 0.5 mg Nicotine (Nicoderm Patch -) 21 mg TD DAILY [facility] Last Admin: 11/28/16 09:28 Dose: 21 mg Quetiapine Fumarate (Seroquel -) 12.5 mg PO HS [facility] Last Admin: 11/27/16 22:10 Dose: 12.5 mg Rosuvastatin Calcium (Crestor -) 10 mg PO HS [facility] Last Admin: 11/27/16 22:10 Dose: 10 mg Tiotropium [place] (Spiriva -) 1 puff IH DAILY [facility] Last Admin: 11/28/16 09:28 Dose: 1 puff Zolpidem Tartrate (Ambien -) 10 mg PO HS PRN PRN Reason: INSOMNIA Last Admin: 11/27/16 22:10 Dose: 10 mg - Objective Vital Signs: Vital Signs Temperature 98.0 F 11/28/16 17:47 Pulse Rate 64 11/28/16 17:47 Respiratory Rate 20 11/28/16 17:47 Blood Pressure 147/77 11/28/16 17:47 O2 Sat by Pulse Oximetry (%) 97 11/28/16 11:07 Constitutional: Yes: No Distress Eyes: No: Sclera Icterus HENT: Yes: Atraumatic, Normocephalic Neck: Yes: Supple, Trachea Midline Cardiovascular: Yes: Regular Rate and Rhythm. No: JVD Respiratory: Yes: Wheezes (mild bilateral) Gastrointestinal: Yes: Soft. No: Tenderness Edema: No Neurological: Yes: Alert, Oriented Problem List - Problems (1) Pneumonia Code(s): J18.9 - PNEUMONIA, UNSPECIFIED ORGANISM (2) Chronic obstructive pulmonary disease with acute exacerbation Code(s): J44.1 - CHRONIC OBSTRUCTIVE PULMONARY DISEASE W (ACUTE) EXACERBATION (3) Pulmonary infiltrate present on computed tomography Code(s): R91.8 - OTHER NONSPECIFIC ABNORMAL FINDING OF LUNG FIELD Assessment/Plan 66 year old smoker with recent upper respiratory infections. Initially improved with P.O. steroids and Levaquin and then redeveloped similar symptoms despite tx again with same meds. Pt developed progressive dyspnea and wheezing and fever to 102. Pneumonia- CT shows small area of ground glass appearing infiltrate on image 42 peripheral left lung. No old CT for comparison on admission. Influenza antigens negative. Infiltrate could be secondary to viral or bacterial pneumonia, an area of inflammation or scar, r/o early bronchioloalveolar cell carcinoma (in situ pulmonary adenocarcinoma). Old CT (2011) now available for review; there are similar changes in the same area on the old scan though they may have slightly increased (radiologist feels there is no significant change). Acute Exacerbation COPD: improving but still with significant bronchospasm and dyspnea. Suggest: Increase hydrocortisone to 200 mg IV q 6 hours then start taper in 24-48 hours Spiriva Inhaled bronchodilators O2 to maintain SaO2>90 Pt counseled to stop smoking F/u CT scan chest in several months to f/u on infiltrate Annual low dose screening CT scan in light of long history of cigarette use Pneumonia vaccines and annual influenza vaccine Pulmonary function tests post discharge Bedside Pulmonary function tests ordered.
--- NOTE | 2016-11-28 19:46 | PN ---
Progress Note (short form) - Note Progress Note: feeling better, more appetite still with sob, gen weakness cardiol and pulm f/u appreciated pulm consult noted copd obese s/o uri, no response to abx and steroids Current Medications Albuterol/Ipratropium (Duoneb -) 1 amp NEB QIDR [facility] Last Admin: 11/28/16 18:15 Dose: 1 amp Aspirin (Ecotrin -) 81 mg PO HS [facility] Last Admin: 11/27/16 22:10 Dose: 81 mg Atenolol (Tenormin -) 50 mg PO DAILY [facility] Last Admin: 11/28/16 09:27 Dose: 50 mg Ceftriaxone Sodium (Rocephin 1gm Ivpb (Pre-Docked)) 1 gm IVPB DAILY [facility] Last Admin: 11/28/16 09:30 Dose: 1 gm Cholecalciferol (Vitamin D3 -) 1,000 unit PO DAILY [facility] Last Admin: 11/28/16 09:28 Dose: 1,000 unit Fluticasone Propionate (Flonase -) 1 spray NS BID [facility] Last Admin: 11/28/16 09:28 Dose: 1 spray Hydrocortisone Sodium Succinate (Solu-Cortef -) 200 mg IVPB Q6H [facility] Last Admin: 11/28/16 18:16 Dose: 200 mg Loratadine (Claritin -) 10 mg PO DAILY [facility] Last Admin: 11/28/16 09:27 Dose: 10 mg Lorazepam (Ativan -) 0.5 mg PO Q12H PRN PRN Reason: ANXIETY Last Admin: 11/28/16 09:45 Dose: 0.5 mg Nicotine (Nicoderm Patch -) 21 mg TD DAILY [facility] Last Admin: 11/28/16 09:28 Dose: 21 mg Quetiapine Fumarate (Seroquel -) 12.5 mg PO HS [facility] Last Admin: 11/27/16 22:10 Dose: 12.5 mg Rosuvastatin Calcium (Crestor -) 10 mg PO HS [facility] Last Admin: 11/27/16 22:10 Dose: 10 mg Tiotropium [place] (Spiriva -) 1 puff IH DAILY [facility] Last Admin: 11/28/16 09:28 Dose: 1 puff Zolpidem Tartrate (Ambien -) 10 mg PO HS PRN PRN Reason: INSOMNIA Last Admin: 11/27/16 22:10 Dose: 10 mg Last Vital Signs Temp Pulse Resp BP Pulse Ox 98.0 F 64 20 147/77 97 11/28/16 17:47 11/28/16 17:47 11/28/16 17:47 11/28/16 17:47 11/28/16 11:07 CBC, BMP 11/27/16 06:00 11/27/16 06:00 ID and Cardiology evals appreciated will check ct scan of chest to eval for chest patholoy given she is a smoker acute resp failure copd acute exacerbation with fever headaches r/o lower resp tract nfection cxr is s infiltrate with diffuse aeration probable panlobular acute sinusitis? obesity current smoker mild elev BNP- r/o underlying heart disease r/o influenza Plan- iv corticosteroids albuterol
[2016-11-28] MEDS: ZOLPIDEM TARTRATE 5 MG TABLET PO PRN (22:17)
[2016-11-28] MEDS: QUEtiapine FUMARATE 25 MG TABLET (FP) PO SCH (22:17)
[2016-11-28] MEDS: ASPIRIN COATED 81 MG TABLET.EC PO SCH (22:17)
[2016-11-28] MEDS: ROSUVASTATIN CA 10 MG TABLET (FP) PO SCH (22:18)
[2016-11-29] MEDS: HYDROCORTISONE SOD SUCCINATE 100 MG/2 ML VIAL IVPB SCH ×5 (00:14→19:57)
[2016-11-29] MEDS: ALBUTEROL SO4 2.5/IPRATROPIUM 0.5 INH SOL 3 ML VIAL.NEB. NEB SCH ×4 (00:14→17:55)
[2016-11-29 07:34] LABS: MCH 31.7 pg (25.7-33.7); MEAN CELL VOLUME 93.3 fl (80-96); MEAN PLT VOLUME 8.3 fl (7.5-11.1); PLATELET COUNT 301 K/MM3 (134-434); RDW 13.5 % (11.6-15.6); WHITE BLOOD COUNT 6.5 K/mm3 (4.0-10.0)
[2016-11-29 09:18] LABS: ALBUMIN 2.8 g/dl (3.4-5.0); ALK PHOS 51 U/L (45-117); ANION GAP 12 (8-16); BILIRUBIN,TOTAL 0.3 mg/dL (0.2-1.0); CALCIUM 8.2 mg/dL (8.5-10.1); CHOLESTEROL 148 mg/dL (50-200); CO2 27 mmol/L (21-32); CREATININE 0.7 mg/dL (0.55-1.02); GLUCOSE,RANDOM 155 mg/dL (74-106); SGOT/AST 13 U/L (15-37); SGPT/ALT 27 U/L (12-78); TOT PROT 5.7 g/dl (6.4-8.2)
[2016-11-29 09:35] LABS: LDL CHOLESTEROL (ONLY SJRH) 66 mg/dL (5-100)
[2016-11-29] MEDS: ATENOLOL 50 MG TABLET (FP) PO SCH (10:41)
[2016-11-29] MEDS: TIOTROPIUM BROMIDE 18 MCG/INH (DEVICE W/ 5 CAPSULES) IH SCH (10:41)
[2016-11-29] MEDS: LORATADINE 10 MG TABLET PO SCH (10:41)
[2016-11-29] MEDS: CHOLECALCIFEROL (VITAMIN D3) 1,000 UNIT TABLET (FP) PO SCH (10:41)
[2016-11-29] MEDS: cefTRIAXone 1 GM/50 ML BAG (PRE-DOCKED) IVPB SCH (10:41)
[2016-11-29] MEDS: NICOTINE 21 MG/24 HOURS TOPICAL PATCH TD SCH (10:41)
[2016-11-29] MEDS: FLUTICASONE PROP 0.05% 16 GM NASAL SPRAY NS SCH ×2 (10:41→22:04)
--- NOTE | 2016-11-29 12:36 | PN ---
Progress Note, Physician Chief Complaint: Pt A&Ox3; feels more nasally congested today (blames it on waiting in a cold room for "10 minutes" before a procedure was done), and only feels comfortable if she lies on her left side with her head elevated by a pillow. History of Present Illness: Patient is a 66 year old female (олег Grayson) with significant PMH of HTN, HLD, Depression and COPD who presents to ED with shortness of breath. She states she had URI symptoms 1month ago including a runny nose and cough. She went to her PCP and was given Levaquin and a course of Methylprednisolone. She felt better up until 1 week ago when she started to feel feverish. She was 102.4 degrees earlier this week and started to develop a cough. No sputum expectorated but she feels very congested. Patient also complains of intermittent chills, & shortness of breath, notably when she lies flat on her back. Patient denies sore throat, visual changes, diarrhea, constipation, nausea, vomiting, chest pain or abdominal pain. - Current Medication List Current Medications: Active Medications Albuterol/Ipratropium (Duoneb -) 1 amp NEB QIDR [facility] Last Admin: 11/29/16 07:18 Dose: 1 amp Aspirin (Ecotrin -) 81 mg PO HS [facility] Last Admin: 11/28/16 22:17 Dose: 81 mg Atenolol (Tenormin -) 50 mg PO DAILY [facility] Last Admin: 11/29/16 10:41 Dose: 50 mg Ceftriaxone Sodium (Rocephin 1gm Ivpb (Pre-Docked)) 1 gm IVPB DAILY [facility] Last Admin: 11/29/16 10:41 Dose: 1 gm Cholecalciferol (Vitamin D3 -) 1,000 unit PO DAILY [facility] Last Admin: 11/29/16 10:41 Dose: 1,000 unit Fluticasone Propionate (Flonase -) 1 spray NS BID [facility] Last Admin: 11/29/16 10:41 Dose: 1 spray Hydrocortisone Sodium Succinate (Solu-Cortef -) 200 mg IVPB Q6H [facility] Last Admin: 11/29/16 12:35 Dose: 200 mg Loratadine (Claritin -) 10 mg PO DAILY [facility] Last Admin: 11/29/16 10:41 Dose: 10 mg Lorazepam (Ativan -) 0.5 mg PO Q12H PRN PRN Reason: ANXIETY Last Admin: 11/28/16 09:45 Dose: 0.5 mg Nicotine (Nicoderm Patch -) 21 mg TD DAILY [facility] Last Admin: 11/29/16 10:41 Dose: 21 mg Quetiapine Fumarate (Seroquel -) 12.5 mg PO HS [facility] Last Admin: 11/28/16 22:17 Dose: 12.5 mg Rosuvastatin Calcium (Crestor -) 10 mg PO HS [facility] Last Admin: 11/28/16 22:18 Dose: 10 mg Tiotropium [place] (Spiriva -) 1 puff IH DAILY [facility] Last Admin: 11/29/16 10:41 Dose: 1 puff Zolpidem Tartrate (Ambien -) 10 mg PO HS PRN PRN Reason: INSOMNIA Last Admin: 11/28/16 22:17 Dose: 10 mg - Objective Vital Signs: Vital Signs Temperature 98.0 F 11/29/16 09:16 Pulse Rate 93 H 11/29/16 09:16 Respiratory Rate 20 11/29/16 09:16 Blood Pressure 135/65 11/29/16 09:16 O2 Sat by Pulse Oximetry (%) 94 L 11/28/16 21:00 Constitutional: Yes: Anxious Eyes: Yes: WNL HENT: Yes: WNL Neck: Yes: WNL Cardiovascular: Yes: Regular Rate and Rhythm Respiratory: Yes: Regular Gastrointestinal: Yes: Soft, Abdomen, Obese ...Rectal Exam: Yes: Deferred Genitourinary: No: Anuria Breast(s): Yes: WNL Musculoskeletal: Yes: Muscle Weakness Extremities: Yes: Cool Edema: Yes Edema: LLE: 1+ (nonpitting), RLE: 1+ (nonpitting) Peripheral Pulses WNL: Yes Integumentary: Yes: WNL Neurological: Yes: Alert, Oriented, Weakness Psychiatric: Yes: Alert, Oriented Labs: CBC, BMP 11/29/16 06:00 11/29/16 06:00 Abnormal Lab Results 11/29/16 11/29/16 06:00 06:00 BUN 19 H Random Glucose 155 H Hemoglobin A1c % 6.2 H Calcium 8.2 L AST 13 L Total Protein 5.7 L Albumin 2.8 L HDL Cholesterol 67 H TSH 0.31 L Problem List - Problems (1) COPD bronchitis Assessment/Plan: bronchodilators, steroids per pulmonary. On Nicotine patch for smoking cessation. Code(s): J44.9 - CHRONIC OBSTRUCTIVE PULMONARY DISEASE, UNSPECIFIED (2) Pneumonia Assessment/Plan: antibiotics per ID. Code(s): J18.9 - PNEUMONIA, UNSPECIFIED ORGANISM (3) Prolonged Q-T interval on ECG Assessment/Plan: Seroquel restarted. F/u EKG. F/u Holter results. ECHO: mildly dilated LV; normal LVEF (on atenolol; consider adding ACEI or ARB because of dilated LV: heart failure with preserved LVEF). Code(s): R94.31 - ABNORMAL ELECTROCARDIOGRAM [ECG] [EKG]
--- NOTE | 2016-11-29 15:25 | PN ---
Progress Note (short form) - Note Progress Note: continues to wheeze no fevers less nasal congestion Vital Signs Period Temp Pulse Resp BP Sys/Negron Pulse Ox Last 24 Hr 97.5 F-98.1 F 64-93 20-20 128-154/61-84 94-94 cor-rrr lungs diffuses wheezing (i think improved) abd soft,nt ext no edema CBC, BMP 11/29/16 06:00 11/29/16 06:00 Microbiology 11/25/16 16:37 Blood - Peripheral Venous Blood Culture - Preliminary NO GROWTH OBTAINED AFTER 72 HOURS, INCUBATION TO CONTINUE FOR 2 DAYS. 11/25/16 16:37 Blood - Peripheral Venous Blood Culture - Preliminary NO GROWTH OBTAINED AFTER 72 HOURS, INCUBATION TO CONTINUE FOR 2 DAYS. 11/25/16 18:47 Nasopharyngeal Swab Respiratory Virus Panel - Preliminary 11/25/16 18:47 Nasopharyngeal Swab Influenza Types A,B Antigen (ALBERTA) - Final 11/25/16 18:47 Nasopharyngeal Swab - Final a/p asthma/copd exacerbation bronchitis- doubt pneumonia- on rocephin day #4 consider d/c antibiotics next 34-48 hours if okay with pulmonary suspect post viral check rsv ag possible osas prolonged qt
--- NOTE | 2016-11-29 15:46 | PN ---
Progress Note, Physician History of Present Illness: Pt more dyspneic his AM - Current Medication List Current Medications: Active Medications Albuterol/Ipratropium (Duoneb -) 1 amp NEB QIDR [facility] Last Admin: 11/29/16 11:42 Dose: 1 amp Aspirin (Ecotrin -) 81 mg PO HS [facility] Last Admin: 11/28/16 22:17 Dose: 81 mg Atenolol (Tenormin -) 50 mg PO DAILY [facility] Last Admin: 11/29/16 10:41 Dose: 50 mg Ceftriaxone Sodium (Rocephin 1gm Ivpb (Pre-Docked)) 1 gm IVPB DAILY [facility] Last Admin: 11/29/16 10:41 Dose: 1 gm Cholecalciferol (Vitamin D3 -) 1,000 unit PO DAILY [facility] Last Admin: 11/29/16 10:41 Dose: 1,000 unit Fluticasone Propionate (Flonase -) 1 spray NS BID [facility] Last Admin: 11/29/16 10:41 Dose: 1 spray Hydrocortisone Sodium Succinate (Solu-Cortef -) 200 mg IVPB Q6H [facility] Last Admin: 11/29/16 12:35 Dose: 200 mg Loratadine (Claritin -) 10 mg PO DAILY [facility] Last Admin: 11/29/16 10:41 Dose: 10 mg Lorazepam (Ativan -) 0.5 mg PO Q12H PRN PRN Reason: ANXIETY Last Admin: 11/28/16 09:45 Dose: 0.5 mg Nicotine (Nicoderm Patch -) 21 mg TD DAILY [facility] Last Admin: 11/29/16 10:41 Dose: 21 mg Quetiapine Fumarate (Seroquel -) 12.5 mg PO HS [facility] Last Admin: 11/28/16 22:17 Dose: 12.5 mg Rosuvastatin Calcium (Crestor -) 10 mg PO HS [facility] Last Admin: 11/28/16 22:18 Dose: 10 mg Tiotropium [place] (Spiriva -) 1 puff IH DAILY [facility] Last Admin: 11/29/16 10:41 Dose: 1 puff Zolpidem Tartrate (Ambien -) 10 mg PO HS PRN PRN Reason: INSOMNIA Last Admin: 11/28/16 22:17 Dose: 10 mg - Objective Vital Signs: Vital Signs Temperature 97.5 F L 11/29/16 14:52 Pulse Rate 73 11/29/16 14:52 Respiratory Rate 20 11/29/16 09:16 Blood Pressure 154/84 11/29/16 14:52 O2 Sat by Pulse Oximetry (%) 94 L 11/29/16 09:00 Constitutional: Yes: No Distress HENT: Yes: Atraumatic, Normocephalic Neck: Yes: Supple, Trachea Midline Respiratory: Yes: Wheezes (mild bilateral) Gastrointestinal: Yes: Soft. No: Tenderness Edema: Yes Edema: LLE: Trace, RLE: Trace Neurological: Yes: Alert, Oriented Labs: CBC, BMP 11/29/16 06:00 11/29/16 06:00 Problem List - Problems (1) Pneumonia Code(s): J18.9 - PNEUMONIA, UNSPECIFIED ORGANISM (2) Chronic obstructive pulmonary disease with acute exacerbation Code(s): J44.1 - CHRONIC OBSTRUCTIVE PULMONARY DISEASE W (ACUTE) EXACERBATION (3) Pulmonary infiltrate present on computed tomography Code(s): R91.8 - OTHER NONSPECIFIC ABNORMAL FINDING OF LUNG FIELD Assessment/Plan 66 year old smoker with recent upper respiratory infections. Pneumonia- CT shows small area of ground glass appearing infiltrate on image 42 peripheral left lung. No old CT for comparison on admission. Influenza antigens negative. Infiltrate could be secondary to viral or bacterial pneumonia, an area of inflammation or scar, r/o early bronchioloalveolar cell carcinoma (in situ pulmonary adenocarcinoma). Old CT (2011) now available for review; there are similar changes in the same area on the old scan though they may have slightly increased (radiologist feels there is no significant change). Acute Exacerbation COPD: improving Suggest: Increase hydrocortisone to 200 mg IV q 6 hours then start taper in 24-48 hours Spiriva Inhaled bronchodilators O2 to maintain SaO2>90 Pt counseled to stop smoking F/u CT scan chest in several months to f/u on infiltrate Annual low dose screening CT scan in light of long history of cigarette use Pneumonia vaccines and annual influenza vaccine Pulmonary function tests post discharge Bedside Pulmonary function tests pending.
[2016-11-29 15:49] LABS: THYROID STIMULATING HORMONE 0.31 uIU/ml (0.358-3.74)
--- NOTE | 2016-11-29 15:52 | PN ---
Progress Note (short form) - Note Progress Note: >>>>>>>>>>>>>>>>>>>>>>>>>> cover for dr Doyle/fannie Current Medications Albuterol/Ipratropium (Duoneb -) 1 amp NEB QIDR [facility] Last Admin: 11/29/16 11:42 Dose: 1 amp Aspirin (Ecotrin -) 81 mg PO HS [facility] Last Admin: 11/28/16 22:17 Dose: 81 mg Atenolol (Tenormin -) 50 mg PO DAILY [facility] Last Admin: 11/29/16 10:41 Dose: 50 mg Ceftriaxone Sodium (Rocephin 1gm Ivpb (Pre-Docked)) 1 gm IVPB DAILY [facility] Last Admin: 11/29/16 10:41 Dose: 1 gm Cholecalciferol (Vitamin D3 -) 1,000 unit PO DAILY [facility] Last Admin: 11/29/16 10:41 Dose: 1,000 unit Fluticasone Propionate (Flonase -) 1 spray NS BID [facility] Last Admin: 11/29/16 10:41 Dose: 1 spray Hydrocortisone Sodium Succinate (Solu-Cortef -) 200 mg IVPB Q6H [facility] Last Admin: 11/29/16 12:35 Dose: 200 mg Loratadine (Claritin -) 10 mg PO DAILY [facility] Last Admin: 11/29/16 10:41 Dose: 10 mg Lorazepam (Ativan -) 0.5 mg PO Q12H PRN PRN Reason: ANXIETY Last Admin: 11/28/16 09:45 Dose: 0.5 mg Nicotine (Nicoderm Patch -) 21 mg TD DAILY [facility] Last Admin: 11/29/16 10:41 Dose: 21 mg Quetiapine Fumarate (Seroquel -) 12.5 mg PO HS [facility] Last Admin: 11/28/16 22:17 Dose: 12.5 mg Rosuvastatin Calcium (Crestor -) 10 mg PO HS [facility] Last Admin: 11/28/16 22:18 Dose: 10 mg Tiotropium [place] (Spiriva -) 1 puff IH DAILY [facility] Last Admin: 11/29/16 10:41 Dose: 1 puff Zolpidem Tartrate (Ambien -) 10 mg PO HS PRN PRN Reason: INSOMNIA Last Admin: 11/28/16 22:17 Dose: 10 mg ```````````````````` Laboratory Results - last 24 hr 11/29/16 11/29/16 11/29/16 06:00 06:00 06:00 WBC 6.5 RBC 3.99 Hgb 12.7 Hct 37.2 MCV 93.3 MCHC 34.0 RDW 13.5 Plt Count 301 MPV 8.3 Sodium 142 Potassium 4.4 Chloride 103 Carbon Dioxide 27 Anion Gap 12 BUN 19 H Creatinine 0.7 Creat Clearance w eGFR > 60 Random Glucose 155 H Hemoglobin A1c % 6.2 H Calcium 8.2 L Total Bilirubin 0.3 D AST 13 L ALT 27 Alkaline Phosphatase 51 D Total Protein 5.7 L Albumin 2.8 L Triglycerides 72 Cholesterol 148 Total LDL Cholesterol 66 HDL Cholesterol 67 H TSH 11/29/16 06:00 WBC RBC Hgb Hct MCV MCHC RDW Plt Count MPV Sodium Potassium Chloride Carbon Dioxide Anion Gap BUN Creatinine Creat Clearance w eGFR Random Glucose Hemoglobin A1c % Calcium Total Bilirubin AST ALT Alkaline Phosphatase Total Protein Albumin Triglycerides Cholesterol Total LDL Cholesterol HDL Cholesterol TSH Cancelled Vital Signs Temperature 97.5 F L 11/29/16 14:52 Pulse Rate 73 11/29/16 14:52 Respiratory Rate 20 11/29/16 09:16 Blood Pressure 154/84 11/29/16 14:52 O2 Sat by Pulse Oximetry (%) 94 L 11/29/16 09:00 CC: cough/wheezing ```````````````````````` skin--no cyanosis, rashes eyes--eomi, non injected lungs--exp rhonchi heart--RR abd--obese, NT ext--no pitting edema; no ischemic changes neuro--alert, coherent; lucid ```````````````````````````````````````` summ > COPD exacerb--waxes & wanes; Congestion seems worse when ambulating; cause is probably viral (or post viral); Chest CT does not speak for definite PNA; agree with steroid use & Neb Tx > Htn--BP controlled by BB. Might need to reconsider use of this agent if resp Sx do not improve as it can produce bronchospasm > affective dz--longstanding 2nd passing of several yrs ago; has been on various agents (SSRI), but is helped most by sleeping agents. ````````````````````````````` Dr Prieto
[2016-11-29] MEDS ORDERED: PT OWN MED DRAWER 7, Y5N ONE (20:12)
[2016-11-29] MEDS: ROSUVASTATIN CA 10 MG TABLET (FP) PO SCH (22:03)
[2016-11-29] MEDS: ASPIRIN COATED 81 MG TABLET.EC PO SCH (22:03)
[2016-11-29] MEDS: QUEtiapine FUMARATE 25 MG TABLET (FP) PO SCH (22:05)
[2016-11-29] MEDS: ZOLPIDEM TARTRATE 5 MG TABLET PO PRN (22:09)
--- NOTE | 2016-11-29 23:13 | EKG ---
Test Reason : Blood Pressure : / mmHG Vent. Rate : 070 BPM Atrial Rate : 070 BPM P-R Int : 146 ms QRS Dur : 082 ms QT Int : 418 ms P-R-T Axes : 015 022 044 degrees QTc Int : 451 ms NORMAL SINUS RHYTHM NORMAL ECG WHEN COMPARED WITH ECG OF 26-NOV-2016 10:15, NO SIGNIFICANT CHANGE WAS FOUND Confirmed by SHANEL GORDON MD ([id number]) on 11/29/2016 11:13:18 PM Referred By: Confirmed By:SHANEL GORDON MD
[2016-11-30] MEDS: ALBUTEROL SO4 2.5/IPRATROPIUM 0.5 INH SOL 3 ML VIAL.NEB. NEB SCH ×4 (00:07→19:09)
[2016-11-30] MEDS: HYDROCORTISONE SOD SUCCINATE 100 MG/2 ML VIAL IVPB SCH ×3 (01:22→12:42)
[2016-11-30] MEDS: NICOTINE 21 MG/24 HOURS TOPICAL PATCH TD SCH (11:25)
[2016-11-30] MEDS: ATENOLOL 50 MG TABLET (FP) PO SCH (11:25)
[2016-11-30] MEDS: LORATADINE 10 MG TABLET PO SCH (11:25)
[2016-11-30] MEDS: CHOLECALCIFEROL (VITAMIN D3) 1,000 UNIT TABLET (FP) PO SCH (11:25)
[2016-11-30] MEDS: cefTRIAXone 1 GM/50 ML BAG (PRE-DOCKED) IVPB SCH (11:26)
[2016-11-30] MEDS ORDERED: PT OWN MED DRAWER 7, Y5N ONE ×3 (11:28→15:03)
[2016-11-30] MEDS: FLUTICASONE PROP 0.05% 16 GM NASAL SPRAY NS SCH ×2 (11:29→22:11)
--- NOTE | 2016-11-30 11:55 | PN ---
Progress Note, Physician History of Present Illness: Patient is a 66 year old female with significant PMH of HTN, HLD, Depression and COPD who presents to ED with shortness of breath. She states she had URI symptoms 1month ago including a runny nose and cough. She went to her PCP and was given Levaquin and a course of Methylprednisolone. She felt better up until 1 week ago when she started to feel feverish. She was 102.4 degrees earlier this week and started to develop a cough. No sputum expectorated but she feels very congested. Patient also complains of intermittent chills, & shortness of breath, notably when she lies flat on her back. Patient denies sore throat, visual changes, diarrhea, constipation, nausea, vomiting, chest pain or abdominal pain. - Current Medication List Current Medications: Active Medications Albuterol/Ipratropium (Duoneb -) 1 amp NEB QIDR [facility] Last Admin: 11/30/16 07:11 Dose: 1 amp Aspirin (Ecotrin -) 81 mg PO HS [facility] Last Admin: 11/29/16 22:03 Dose: 81 mg Atenolol (Tenormin -) 50 mg PO DAILY [facility] Last Admin: 11/30/16 11:25 Dose: 50 mg Ceftriaxone Sodium (Rocephin 1gm Ivpb (Pre-Docked)) 1 gm IVPB DAILY [facility] Last Admin: 11/30/16 11:26 Dose: 1 gm Cholecalciferol (Vitamin D3 -) 1,000 unit PO DAILY [facility] Last Admin: 11/30/16 11:25 Dose: 1,000 unit Fluticasone Propionate (Flonase -) 1 spray NS BID [facility] Last Admin: 11/30/16 11:29 Dose: 1 spray Hydrocortisone Sodium Succinate (Solu-Cortef -) 200 mg IVPB Q6H [facility] Last Admin: 11/30/16 05:38 Dose: 200 mg Loratadine (Claritin -) 10 mg PO DAILY [facility] Last Admin: 11/30/16 11:25 Dose: 10 mg Lorazepam (Ativan -) 0.5 mg PO Q12H PRN PRN Reason: ANXIETY Last Admin: 11/28/16 09:45 Dose: 0.5 mg Nicotine (Nicoderm Patch -) 21 mg TD DAILY [facility] Last Admin: 11/30/16 11:25 Dose: 21 mg Quetiapine Fumarate (Seroquel -) 12.5 mg PO HS [facility] Last Admin: 11/29/16 22:05 Dose: 12.5 mg Rosuvastatin Calcium (Crestor -) 10 mg PO HS [facility] Last Admin: 11/29/16 22:03 Dose: 10 mg Tiotropium [place] (Spiriva -) 1 puff IH DAILY [facility] Last Admin: 11/29/16 10:41 Dose: 1 puff Zolpidem Tartrate (Ambien -) 10 mg PO HS PRN PRN Reason: INSOMNIA Last Admin: 11/29/16 22:09 Dose: 10 mg - Objective Vital Signs: Vital Signs Temperature 97.8 F 11/30/16 06:00 Pulse Rate 80 11/30/16 06:00 Respiratory Rate 20 11/30/16 06:00 Blood Pressure 156/86 11/30/16 06:00 O2 Sat by Pulse Oximetry (%) 94 L 11/29/16 21:00 Eyes: Yes: WNL, Conjunctiva Clear, EOM Intact HENT: Yes: WNL, Atraumatic, Normocephalic Neck: Yes: WNL, Supple, Trachea Midline Cardiovascular: Yes: WNL, Regular Rate and Rhythm Respiratory: Yes: WNL, Regular, CTA Bilaterally Gastrointestinal: Yes: WNL, Normal Bowel Sounds Genitourinary: Yes: WNL Musculoskeletal: Yes: WNL Extremities: Yes: WNL Edema: Yes Integumentary: Yes: WNL Neurological: Yes: WNL, Alert, Oriented ...Motor Strength: WNL Psychiatric: Yes: WNL Labs: CBC, BMP 11/29/16 06:00 11/29/16 06:00 Assessment/Plan - Problems (1) COPD bronchitis Assessment/Plan: bronchodilators, steroids per pulmonary. On Nicotine patch for smoking cessation. Code(s): J44.9 - CHRONIC OBSTRUCTIVE PULMONARY DISEASE, UNSPECIFIED (2) Pneumonia Assessment/Plan: antibiotics per ID. Code(s): J18.9 - PNEUMONIA, UNSPECIFIED ORGANISM (3) Prolonged Q-T interval on ECG Assessment/Plan: Seroquel restarted. F/u EKG. F/u Holter results. ECHO: mildly dilated LV; normal LVEF (on atenolol; consider adding ACEI or ARB because of dilated LV: heart failure with preserved LVEF). Code(s): R94.31 - ABNORMAL ELECTROCARDIOGRAM [ECG] [EKG]
--- NOTE | 2016-11-30 13:36 | PN ---
Progress Note (short form) - Note Progress Note: %%%%%%%%%%%%%%%%%%%%%%%% cover for Dr Doyle Current Medications Albuterol/Ipratropium (Duoneb -) 1 amp NEB QIDR [facility] Last Admin: 11/30/16 12:00 Dose: 1 amp Aspirin (Ecotrin -) 81 mg PO HS [facility] Last Admin: 11/29/16 22:03 Dose: 81 mg Atenolol (Tenormin -) 50 mg PO DAILY [facility] Last Admin: 11/30/16 11:25 Dose: 50 mg Ceftriaxone Sodium (Rocephin 1gm Ivpb (Pre-Docked)) 1 gm IVPB DAILY [facility] Last Admin: 11/30/16 11:26 Dose: 1 gm Cholecalciferol (Vitamin D3 -) 1,000 unit PO DAILY [facility] Last Admin: 11/30/16 11:25 Dose: 1,000 unit Fluticasone Propionate (Flonase -) 1 spray NS BID [facility] Last Admin: 11/30/16 11:29 Dose: 1 spray Hydrocortisone Sodium Succinate (Solu-Cortef -) 200 mg IVPB Q6H [facility] Last Admin: 11/30/16 12:42 Dose: 200 mg Loratadine (Claritin -) 10 mg PO DAILY [facility] Last Admin: 11/30/16 11:25 Dose: 10 mg Lorazepam (Ativan -) 0.5 mg PO Q12H PRN PRN Reason: ANXIETY Last Admin: 11/28/16 09:45 Dose: 0.5 mg Nicotine (Nicoderm Patch -) 21 mg TD DAILY [facility] Last Admin: 11/30/16 11:25 Dose: 21 mg Quetiapine Fumarate (Seroquel -) 12.5 mg PO HS [facility] Last Admin: 11/29/16 22:05 Dose: 12.5 mg Rosuvastatin [place] (Crestor -) 10 mg PO HS [facility] Last Admin: 11/29/16 22:03 Dose: 10 mg Tiotropium [place] (Spiriva -) 1 puff IH DAILY [facility] Last Admin: 11/29/16 10:41 Dose: 1 puff Zolpidem Tartrate (Ambien -) 10 mg PO HS PRN PRN Reason: INSOMNIA Last Admin: 11/29/16 22:09 Dose: 10 mg Laboratory Results - last 24 hr 11/29/16 11/30/16 06:00 05:52 TSH 0.31 L Free T4 0.83 Vital Signs Temperature 97.8 F 11/30/16 06:00 Pulse Rate 80 11/30/16 12:30 Respiratory Rate 20 11/30/16 06:00 Blood Pressure 156/86 11/30/16 06:00 O2 Sat by Pulse Oximetry (%) 94 L 11/30/16 12:30 CC: AM wheezing; bilat ankle swelling ```````````````````````` skin--no cyanosis, rashes eyes--eomi, non injected lungs--exp rhonchi heart--RR abd--obese, NT ext--no pitting edema; no ischemic changes neuro--alert, coherent; lucid ```````````````````````````````````````` summ > COPD exacerb--waxes & wanes; feels better in late morning; Chest CT does not speak for definite PNA; agree with steroid use & Neb Tx > Htn--BP a bit high will Rx BB to be given early AM. > Trace edema of LE--2nd water retaining effects of steroid; Rx Lasix > affective dz--longstanding 2nd passing of several yrs ago; has been on various agents (SSRI), but is helped most by sleeping agents. ````````````````````````````` Dr Prieto
--- NOTE | 2016-11-30 14:07 | PN ---
Progress Note (short form) - Note Progress Note: breathing improved no fevers less nasal congestion Vital Signs Period Temp Pulse Resp BP Sys/Negron Pulse Ox Last 24 Hr 97.5 F-98.6 F 73-80 20-20 142-159/77-91 94-94 cor-rrr lungs scattered wheeze abd soft,nt ext trace edema CBC, BMP 11/29/16 06:00 11/29/16 06:00 Microbiology 11/25/16 16:37 Blood - Peripheral Venous Blood Culture - Preliminary NO GROWTH OBTAINED AFTER 96 HOURS, INCUBATION TO CONTINUE FOR 1 DAYS. 11/25/16 16:37 Blood - Peripheral Venous Blood Culture - Preliminary NO GROWTH OBTAINED AFTER 96 HOURS, INCUBATION TO CONTINUE FOR 1 DAYS. 11/25/16 18:47 Nasopharyngeal Swab Respiratory Virus Panel - Preliminary 11/25/16 18:47 Nasopharyngeal Swab Influenza Types A,B Antigen (ALBERTA) - Final 11/25/16 18:47 Nasopharyngeal Swab - Final a/p asthma/copd exacerbation-overall improving bronchitis- doubt pneumonia- on rocephin day #5 d/c antibiotics suspect post viral possible osas prolonged qt please call back if needed
[2016-11-30] MEDS: ENOXAPARIN NA (PORCINE) 40 MG/0.4 ML DISP.SYRIN SQ SCH (15:12)
[2016-11-30] MEDS: FUROSEMIDE 20 MG TABLET (FP) PO SCH (15:12)
[2016-11-30] MEDS: TIOTROPIUM BROMIDE 18 MCG/INH (DEVICE W/ 5 CAPSULES) IH SCH (15:12)
--- NOTE | 2016-11-30 15:34 | PN ---
Progress Note, Physician History of Present Illness: Pt less dyspneic. - Current Medication List Current Medications: Active Medications Albuterol/Ipratropium (Duoneb -) 1 amp NEB QIDR [facility] Last Admin: 11/30/16 12:00 Dose: 1 amp Aspirin (Ecotrin -) 81 mg PO HS [facility] Last Admin: 11/29/16 22:03 Dose: 81 mg Atenolol (Tenormin -) 50 mg PO DAILY [facility] Ceftriaxone Sodium (Rocephin 1gm Ivpb (Pre-Docked)) 1 gm IVPB DAILY [facility] Last Admin: 11/30/16 11:26 Dose: 1 gm Cholecalciferol (Vitamin D3 -) 1,000 unit PO DAILY [facility] Last Admin: 11/30/16 11:25 Dose: 1,000 unit Enoxaparin Sodium (Lovenox -) 40 mg SQ DAILY [facility] Last Admin: 11/30/16 15:12 Dose: 40 mg Fluticasone Propionate (Flonase -) 1 spray NS BID [facility] Last Admin: 11/30/16 11:29 Dose: 1 spray Furosemide (Lasix -) 20 mg PO DAILY [facility] Last Admin: 11/30/16 15:12 Dose: 20 mg Hydrocortisone Sodium Succinate (Solu-Cortef -) 200 mg IVPB Q6H [facility] Last Admin: 11/30/16 12:42 Dose: 200 mg Loratadine (Claritin -) 10 mg PO DAILY [facility] Last Admin: 11/30/16 11:25 Dose: 10 mg Lorazepam (Ativan -) 0.5 mg PO Q12H PRN PRN Reason: ANXIETY Last Admin: 11/28/16 09:45 Dose: 0.5 mg Nicotine (Nicoderm Patch -) 21 mg TD DAILY [facility] Last Admin: 11/30/16 11:25 Dose: 21 mg Quetiapine Fumarate (Seroquel -) 12.5 mg PO HS [facility] Last Admin: 11/29/16 22:05 Dose: 12.5 mg Rosuvastatin Calcium (Crestor -) 10 mg PO HS [facility] Last Admin: 11/29/16 22:03 Dose: 10 mg Tiotropium [place] (Spiriva -) 1 puff IH DAILY [facility] Last Admin: 11/30/16 15:12 Dose: 1 puff Zolpidem Tartrate (Ambien -) 10 mg PO HS PRN PRN Reason: INSOMNIA Last Admin: 11/29/16 22:09 Dose: 10 mg - Objective Vital Signs: Vital Signs Temperature 98.2 F 11/30/16 13:48 Pulse Rate 78 11/30/16 13:48 Respiratory Rate 20 11/30/16 13:48 Blood Pressure 142/77 11/30/16 13:48 O2 Sat by Pulse Oximetry (%) 94 L 11/30/16 12:30 Constitutional: Yes: No Distress Eyes: No: Sclera Icterus HENT: Yes: Atraumatic, Normocephalic, Other (Mallampati 1) Neck: Yes: Supple, Trachea Midline Cardiovascular: Yes: Regular Rate and Rhythm. No: JVD Respiratory: Yes: CTA Bilaterally Gastrointestinal: Yes: Soft. No: Tenderness Extremities: No: Calf Tenderness Edema: LLE: 1+, RLE: 1+ Neurological: Yes: Alert, Oriented Labs: CBC, BMP 11/29/16 06:00 11/29/16 06:00 Spirometry: FVC=2.61L=81% FEV1=1.71 L/S=65% FEV1%=65.7 QOQ51-19=94% Problem List - Problems (1) Pneumonia Code(s): J18.9 - PNEUMONIA, UNSPECIFIED ORGANISM (2) Chronic obstructive pulmonary disease with acute exacerbation Code(s): J44.1 - CHRONIC OBSTRUCTIVE PULMONARY DISEASE W (ACUTE) EXACERBATION (3) Pulmonary infiltrate present on computed tomography Code(s): R91.8 - OTHER NONSPECIFIC ABNORMAL FINDING OF LUNG FIELD Assessment/Plan 66 year old smoker with recent upper respiratory infections. Pneumonia- CT shows small area of ground glass appearing infiltrate on image 42 peripheral left lung. No old CT for comparison on admission. Influenza antigens negative. Infiltrate could be secondary to viral or bacterial pneumonia, an area of inflammation or scar, r/o early bronchioloalveolar cell carcinoma (in situ pulmonary adenocarcinoma). Old CT (2011) now available for review; there are similar changes in the same area on the old scan though they may have slightly increased (radiologist feels there is no significant change). Acute Exacerbation COPD: improved. Will switch to P.O. meds. Spirometry: mild obstruction (pt is on maximum therapy i.e. degree of obstruction may be uderestimated). Pt has chronic insomnia (has been on nightly Ambien for years), snoring and morbid obesity. Pharyngeal inlet normal (Mallampati 1). I recommended that patient have a sleep study but she refuses. Suggest: Prednisone 40 mg daily Spiriva Inhaled bronchodilators O2 to maintain SaO2>90 Pt counseled to stop smoking F/u CT scan chest in several months to f/u on infiltrate Annual low dose screening CT scan in light of long history of cigarette use Pneumonia vaccines and annual influenza vaccine Pulmonary function tests post discharge Pulmonary Rehab as outpt
[2016-11-30] MEDS: ZOLPIDEM TARTRATE 5 MG TABLET PO PRN (22:09)
[2016-11-30] MEDS: QUEtiapine FUMARATE 25 MG TABLET (FP) PO SCH (22:10)
[2016-11-30] MEDS: ROSUVASTATIN CA 10 MG TABLET (FP) PO SCH (22:10)
[2016-11-30] MEDS: ASPIRIN COATED 81 MG TABLET.EC PO SCH (22:11)
[2016-12-01] MEDS: ALBUTEROL SO4 2.5/IPRATROPIUM 0.5 INH SOL 3 ML VIAL.NEB. NEB SCH ×4 (00:09→19:05)
[2016-12-01] MEDS: ATENOLOL 50 MG TABLET (FP) PO SCH ×2 (06:14→14:58)
[2016-12-01 07:09] LABS: MCH 31.1 pg (25.7-33.7); MCHC 33.2 g/dl (32.0-36.0); MEAN CELL VOLUME 93.7 fl (80-96); PLATELET COUNT 307 K/MM3 (134-434); RDW 13.5 % (11.6-15.6); WHITE BLOOD COUNT 6.3 K/mm3 (4.0-10.0)
[2016-12-01 07:42] LABS: CALCIUM 8.4 mg/dL (8.5-10.1); CREATININE 0.7 mg/dL (0.55-1.02); MAGNESIUM 2.3 mg/dL (1.8-2.4)
[2016-12-01] MEDS ORDERED: PT OWN MED DRAWER 7, Y5N ONE ×2 (09:51→22:39)
[2016-12-01] MEDS: ENOXAPARIN NA (PORCINE) 40 MG/0.4 ML DISP.SYRIN SQ SCH (10:38)
[2016-12-01] MEDS: NICOTINE 21 MG/24 HOURS TOPICAL PATCH TD SCH (10:39)
[2016-12-01] MEDS: FUROSEMIDE 20 MG TABLET (FP) PO SCH (10:39)
[2016-12-01] MEDS: LORATADINE 10 MG TABLET PO SCH (10:39)
[2016-12-01] MEDS: TIOTROPIUM BROMIDE 18 MCG/INH (DEVICE W/ 5 CAPSULES) IH SCH (10:39)
[2016-12-01] MEDS: CHOLECALCIFEROL (VITAMIN D3) 1,000 UNIT TABLET (FP) PO SCH (10:39)
[2016-12-01] MEDS: predniSONE 20 MG TABLET (UD) PO SCH (10:39)
[2016-12-01] MEDS: FLUTICASONE PROP 0.05% 16 GM NASAL SPRAY NS SCH ×2 (10:40→22:39)
--- NOTE | 2016-12-01 16:36 | PN ---
Progress Note, Physician Chief Complaint: Pt A&Ox3; no dyspnea, but upset that her legs are now more swollen and that, while LE US showed no DVT, there were bilateral Wesley's cysts. History of Present Illness: Patient is a 66 year old female (b. [place]) with significant PMH of HTN, HLD, Depression and COPD who presents to ED with shortness of breath. She states she had URI symptoms 1month ago including a runny nose and cough. She went to her PCP and was given Levaquin and a course of Methylprednisolone. She felt better up until 1 week ago when she started to feel feverish. She was 102.4 degrees earlier this week and started to develop a cough. No sputum expectorated but she feels very congested. Patient also complains of intermittent chills, & shortness of breath, notably when she lies flat on her back. Patient denies sore throat, visual changes, diarrhea, constipation, nausea, vomiting, chest pain or abdominal pain. - Current Medication List Current Medications: Active Medications Albuterol/Ipratropium (Duoneb -) 1 amp NEB QIDR [facility] Last Admin: 12/01/16 12:00 Dose: 1 amp Aspirin (Ecotrin -) 81 mg PO HS [facility] Last Admin: 11/30/16 22:11 Dose: 81 mg Atenolol (Tenormin -) 50 mg PO DAILY [facility] Last Admin: 12/01/16 14:58 Dose: Not Given Cholecalciferol (Vitamin D3 -) 1,000 unit PO DAILY [facility] Last Admin: 12/01/16 10:39 Dose: 1,000 unit Enoxaparin Sodium (Lovenox -) 40 mg SQ DAILY [facility] Last Admin: 12/01/16 10:38 Dose: 40 mg Fluticasone Propionate (Flonase -) 1 spray NS BID [facility] Last Admin: 12/01/16 10:40 Dose: 1 spray Furosemide (Lasix -) 20 mg PO DAILY [facility] Last Admin: 12/01/16 10:39 Dose: 20 mg Loratadine (Claritin -) 10 mg PO DAILY [facility] Last Admin: 12/01/16 10:39 Dose: 10 mg Lorazepam (Ativan -) 0.5 mg PO Q12H PRN PRN Reason: ANXIETY Last Admin: 11/28/16 09:45 Dose: 0.5 mg Nicotine (Nicoderm Patch -) 21 mg TD DAILY [facility] Last Admin: 12/01/16 10:39 Dose: 21 mg Prednisone (Deltasone -) 40 mg PO DAILY [facility] Last Admin: 12/01/16 10:39 Dose: 40 mg Quetiapine Fumarate (Seroquel -) 12.5 mg PO HS [facility] Last Admin: 11/30/16 22:10 Dose: 12.5 mg Rosuvastatin Calcium (Crestor -) 10 mg PO [facility] Last Admin: 11/30/16 22:10 Dose: 10 mg Tiotropium [place] (Spiriva -) 1 puff IH DAILY [facility] Last Admin: 12/01/16 10:39 Dose: 1 puff Zolpidem Tartrate (Ambien -) 10 mg PO HS PRN PRN Reason: INSOMNIA Last Admin: 11/30/16 22:09 Dose: 10 mg - Objective Vital Signs: Vital Signs Temperature 97.5 F L 12/01/16 13:32 Pulse Rate 78 12/01/16 13:32 Respiratory Rate 20 12/01/16 13:32 Blood Pressure 142/72 12/01/16 13:32 O2 Sat by Pulse Oximetry (%) 95 12/01/16 10:00 Constitutional: Yes: Anxious Eyes: Yes: WNL HENT: Yes: WNL Neck: Yes: WNL Cardiovascular: Yes: WNL Respiratory: Yes: WNL Gastrointestinal: Yes: Soft, Abdomen, Obese ...Rectal Exam: Yes: Deferred Genitourinary: No: Anuria Edema: Yes Edema: LLE: 2+, RLE: 2+ Peripheral Pulses WNL: Yes Integumentary: Yes: Venous Stasis Changes Neurological: Yes: WNL Psychiatric: Yes: WNL Labs: CBC, BMP 12/01/16 06:00 12/01/16 06:00 - ....Imaging Ultrasound: Image Reviewed (no DVT; bilateral Wesley's cysts) Problem List - Problems (1) COPD bronchitis Assessment/Plan: bronchodilators, steroids per pulmonary. +Influenza. On Nicotine patch for smoking cessation. Code(s): J44.9 - CHRONIC OBSTRUCTIVE PULMONARY DISEASE, UNSPECIFIED (2) Pneumonia Assessment/Plan: antibiotics per ID. Code(s): J18.9 - PNEUMONIA, UNSPECIFIED ORGANISM (3) Prolonged Q-T interval on ECG Assessment/Plan: Seroquel restarted. 11/29/2016 EKG: NSR; normal QTc. F/u Holter results (?done this admission). ECHO: mildly dilated LV; normal LVEF (on atenolol; consider adding ACEI or ARB because of dilated LV: heart failure with preserved LVEF). Code(s): R94.31 - ABNORMAL ELECTROCARDIOGRAM [ECG] [EKG] (4) Wesley's cyst of knee Code(s): M71.20 - SYNOVIAL CYST OF POPLITEAL SPACE [WESLEY], UNSPECIFIED KNEE (5) Diastolic CHF Assessment/Plan: On atenolol and furosemide. Add lisinopril 2.5 mg daily (HTN; CHF; bilateral LE edema; dilated LV). Code(s): I50.30 - UNSPECIFIED DIASTOLIC (CONGESTIVE) HEART FAILURE (6) Obesity Code(s): E66.9 - OBESITY, UNSPECIFIED (7) Influenza Code(s): J11.1 - FLU DUE TO UNIDENTIFIED INFLUENZA VIRUS W OTH RESP MANIFEST (8) Smokes cigarettes Assessment/Plan: on Nicotine patch. Code(s): F17.210 - NICOTINE DEPENDENCE, CIGARETTES, UNCOMPLICATED
[2016-12-01] MEDS: LISINOPRIL 5 MG TABLET (FP) PO SCH (17:45)
--- NOTE | 2016-12-01 18:08 | PN ---
Progress Note, Physician History of Present Illness: Pt less dyspneic. Some increase in leg edema - Current Medication List Current Medications: Active Medications Albuterol/Ipratropium (Duoneb -) 1 amp NEB QIDR [facility] Last Admin: 12/01/16 12:00 Dose: 1 amp Aspirin (Ecotrin -) 81 mg PO HS [facility] Last Admin: 11/30/16 22:11 Dose: 81 mg Atenolol (Tenormin -) 50 mg PO DAILY [facility] Last Admin: 12/01/16 14:58 Dose: Not Given Cholecalciferol (Vitamin D3 -) 1,000 unit PO DAILY [facility] Last Admin: 12/01/16 10:39 Dose: 1,000 unit Enoxaparin Sodium (Lovenox -) 40 mg SQ DAILY [facility] Last Admin: 12/01/16 10:38 Dose: 40 mg Fluticasone Propionate (Flonase -) 1 spray NS BID [facility] Last Admin: 12/01/16 10:40 Dose: 1 spray Furosemide (Lasix -) 20 mg PO DAILY [facility] Last Admin: 12/01/16 10:39 Dose: 20 mg Lisinopril (Prinivil) 2.5 mg PO DAILY [facility] Last Admin: 12/01/16 17:45 Dose: 2.5 mg Loratadine (Claritin -) 10 mg PO DAILY [facility] Last Admin: 12/01/16 10:39 Dose: 10 mg Lorazepam (Ativan -) 0.5 mg PO Q12H PRN PRN Reason: ANXIETY Last Admin: 11/28/16 09:45 Dose: 0.5 mg Nicotine (Nicoderm Patch -) 21 mg TD DAILY [facility] Last Admin: 12/01/16 10:39 Dose: 21 mg Prednisone (Deltasone -) 40 mg PO DAILY [facility] Last Admin: 12/01/16 10:39 Dose: 40 mg Quetiapine Fumarate (Seroquel -) 12.5 mg PO HS [facility] Last Admin: 11/30/16 22:10 Dose: 12.5 mg Rosuvastatin Calcium (Crestor -) 10 mg PO HS [facility] Last Admin: 11/30/16 22:10 Dose: 10 mg Tiotropium [place] (Spiriva -) 1 puff IH DAILY [facility] Last Admin: 12/01/16 10:39 Dose: 1 puff Zolpidem Tartrate (Ambien -) 10 mg PO HS PRN PRN Reason: INSOMNIA Last Admin: 11/30/16 22:09 Dose: 10 mg - Objective Vital Signs: Vital Signs Temperature 98.4 F 12/01/16 17:42 Pulse Rate 76 12/01/16 17:42 Respiratory Rate 18 12/01/16 17:42 Blood Pressure 136/86 12/01/16 17:42 O2 Sat by Pulse Oximetry (%) 95 12/01/16 10:00 Labs: CBC, BMP 12/01/16 06:00 12/01/16 06:00 Problem List - Problems (1) Pneumonia Code(s): J18.9 - PNEUMONIA, UNSPECIFIED ORGANISM (2) Chronic obstructive pulmonary disease with acute exacerbation Code(s): J44.1 - CHRONIC OBSTRUCTIVE PULMONARY DISEASE W (ACUTE) EXACERBATION (3) Pulmonary infiltrate present on computed tomography Code(s): R91.8 - OTHER NONSPECIFIC ABNORMAL FINDING OF LUNG FIELD
[2016-12-01] MEDS ORDERED: FUROSEMIDE 20 MG TABLET (FP) PO ONE (18:12)
--- NOTE | 2016-12-01 18:12 | PN ---
Progress Note, Physician History of Present Illness: Pt less dyspneic. Some increase in leg edema - Current Medication List Current Medications: Active Medications Albuterol/Ipratropium (Duoneb -) 1 amp NEB QIDR [facility] Last Admin: 12/01/16 12:00 Dose: 1 amp Aspirin (Ecotrin -) 81 mg PO HS [facility] Last Admin: 11/30/16 22:11 Dose: 81 mg Atenolol (Tenormin -) 50 mg PO DAILY [facility] Last Admin: 12/01/16 14:58 Dose: Not Given Cholecalciferol (Vitamin D3 -) 1,000 unit PO DAILY [facility] Last Admin: 12/01/16 10:39 Dose: 1,000 unit Enoxaparin Sodium (Lovenox -) 40 mg SQ DAILY [facility] Last Admin: 12/01/16 10:38 Dose: 40 mg Fluticasone Propionate (Flonase -) 1 spray NS BID [facility] Last Admin: 12/01/16 10:40 Dose: 1 spray Furosemide (Lasix -) 20 mg PO DAILY [facility] Last Admin: 12/01/16 10:39 Dose: 20 mg Lisinopril (Prinivil) 2.5 mg PO DAILY [facility] Last Admin: 12/01/16 17:45 Dose: 2.5 mg Loratadine (Claritin -) 10 mg PO DAILY [facility] Last Admin: 12/01/16 10:39 Dose: 10 mg Lorazepam (Ativan -) 0.5 mg PO Q12H PRN PRN Reason: ANXIETY Last Admin: 11/28/16 09:45 Dose: 0.5 mg Nicotine (Nicoderm Patch -) 21 mg TD DAILY [facility] Last Admin: 12/01/16 10:39 Dose: 21 mg Prednisone (Deltasone -) 40 mg PO DAILY [facility] Last Admin: 12/01/16 10:39 Dose: 40 mg Quetiapine Fumarate (Seroquel -) 12.5 mg PO HS [facility] Last Admin: 11/30/16 22:10 Dose: 12.5 mg Rosuvastatin Calcium (Crestor -) 10 mg PO HS [facility] Last Admin: 11/30/16 22:10 Dose: 10 mg Tiotropium [place] (Spiriva -) 1 puff IH DAILY [facility] Last Admin: 12/01/16 10:39 Dose: 1 puff Zolpidem Tartrate (Ambien -) 10 mg PO HS PRN PRN Reason: INSOMNIA Last Admin: 11/30/16 22:09 Dose: 10 mg - Objective Vital Signs: Vital Signs Temperature 98.4 F 12/01/16 17:42 Pulse Rate 76 12/01/16 17:42 Respiratory Rate 18 12/01/16 17:42 Blood Pressure 136/86 12/01/16 17:42 O2 Sat by Pulse Oximetry (%) 95 12/01/16 10:00 Constitutional: Yes: No Distress Eyes: No: Sclera Icterus HENT: Yes: Atraumatic Neck: Yes: Trachea Midline Cardiovascular: No: JVD Respiratory: Yes: CTA Bilaterally Gastrointestinal: Yes: Soft. No: Tenderness Edema: LLE: 2+, RLE: 2+ Neurological: Yes: Alert Labs: CBC, BMP 12/01/16 06:00 12/01/16 06:00 Problem List - Problems (1) Pneumonia Code(s): J18.9 - PNEUMONIA, UNSPECIFIED ORGANISM (2) Chronic obstructive pulmonary disease with acute exacerbation Code(s): J44.1 - CHRONIC OBSTRUCTIVE PULMONARY DISEASE W (ACUTE) EXACERBATION (3) Pulmonary infiltrate present on computed tomography Code(s): R91.8 - OTHER NONSPECIFIC ABNORMAL FINDING OF LUNG FIELD Assessment/Plan 66 year old smoker with recent upper respiratory infections. Dyspnea decreased. Some increase in leg edema: will give extra dose Furosemide tonight. Pneumonia- CT shows small area of ground glass appearing infiltrate on image 42 peripheral left lung. No old CT for comparison on admission. Influenza antigens negative. Infiltrate could be secondary to viral or bacterial pneumonia, an area of inflammation or scar, r/o early bronchioloalveolar cell carcinoma (in situ pulmonary adenocarcinoma). Old CT (2011) now available for review; there are similar changes in the same area on the old scan though they may have slightly increased (radiologist feels there is no significant change). Acute Exacerbation COPD: improved. Pt on P.O. meds. Spirometry: mild obstruction (pt is on maximum therapy i.e. degree of obstruction may be underestimated). Pt has chronic insomnia (has been on nightly Ambien for years), snoring and morbid obesity. Pharyngeal inlet normal (Mallampati 1). I recommended that patient have a sleep study but she refuses. Suggest: Prednisone 40 mg daily with tapering Spiriva Inhaled bronchodilators O2 to maintain SaO2>90 Pt counseled to stop smoking F/u CT scan chest in several months to f/u on infiltrate Annual low dose screening CT scan in light of long history of cigarette use Pneumonia vaccines and annual influenza vaccine Pulmonary function tests post discharge Pulmonary Rehab as outpt Discharge planning in progress
--- NOTE | 2016-12-01 21:11 | PN ---
Progress Note (short form) - Note Progress Note: better overall eating more (prednisone effect) pef- 230-240 pulm f/u appreciated-agree to consider pulm rehab also recommends switch to oral meds she still has sob and leg edema foot swelling/edema will consult dr dell [facility] pulm rehab 11/28/16 feeling better, more appetite still with sob, gen weakness cardiol and pulm f/u appreciated pulm consult noted copd obese s/o uri, no response to abx and steroids Current Medications Albuterol/Ipratropium (Duoneb -) 1 amp NEB QIDR [facility] Last Admin: 12/01/16 19:05 Dose: 1 amp Aspirin (Ecotrin -) 81 mg PO HS [facility] Last Admin: 11/30/16 22:11 Dose: 81 mg Atenolol (Tenormin -) 50 mg PO DAILY [facility] Last Admin: 12/01/16 14:58 Dose: Not Given Cholecalciferol (Vitamin D3 -) 1,000 unit PO DAILY [facility] Last Admin: 12/01/16 10:39 Dose: 1,000 unit Enoxaparin Sodium (Lovenox -) 40 mg SQ DAILY [facility] Last Admin: 12/01/16 10:38 Dose: 40 mg Fluticasone Propionate (Flonase -) 1 spray NS BID [facility] Last Admin: 12/01/16 10:40 Dose: 1 spray Furosemide (Lasix -) 20 mg PO DAILY [facility] Last Admin: 12/01/16 10:39 Dose: 20 mg Lisinopril (Prinivil) 2.5 mg PO DAILY [facility] Last Admin: 12/01/16 17:45 Dose: 2.5 mg Loratadine (Claritin -) 10 mg PO DAILY [facility] Last Admin: 12/01/16 10:39 Dose: 10 mg Lorazepam (Ativan -) 0.5 mg PO Q12H PRN PRN Reason: ANXIETY Last Admin: 11/28/16 09:45 Dose: 0.5 mg Nicotine (Nicoderm Patch -) 21 mg TD DAILY [facility] Last Admin: 12/01/16 10:39 Dose: 21 mg Prednisone (Deltasone -) 40 mg PO DAILY [facility] Last Admin: 12/01/16 10:39 Dose: 40 mg Quetiapine Fumarate (Seroquel -) 12.5 mg PO HS [facility] Last Admin: 11/30/16 22:10 Dose: 12.5 mg Rosuvastatin Calcium (Crestor -) 10 mg PO HS [facility] Last Admin: 11/30/16 22:10 Dose: 10 mg Tiotropium [place] (Spiriva -) 1 puff IH DAILY [facility] Last Admin: 12/01/16 10:39 Dose: 1 puff Zolpidem Tartrate (Ambien -) 10 mg PO HS PRN PRN Reason: INSOMNIA Last Admin: 11/30/16 22:09 Dose: 10 mg Current Medications Albuterol/Ipratropium (Duoneb -) 1 amp NEB QIDR [facility] Last Admin: 12/01/16 19:05 Dose: 1 amp Aspirin (Ecotrin -) 81 mg PO HS [facility] Last Admin: 11/30/16 22:11 Dose: 81 mg Atenolol (Tenormin -) 50 mg PO DAILY [facility] Last Admin: 12/01/16 14:58 Dose: Not Given Cholecalciferol (Vitamin D3 -) 1,000 unit PO DAILY [facility] Last Admin: 12/01/16 10:39 Dose: 1,000 unit Enoxaparin Sodium (Lovenox -) 40 mg SQ DAILY [facility] Last Admin: 12/01/16 10:38 Dose: 40 mg Fluticasone Propionate (Flonase -) 1 spray NS BID [facility] Last Admin: 12/01/16 10:40 Dose: 1 spray Furosemide (Lasix -) 20 mg PO DAILY [facility] Last Admin: 12/01/16 10:39 Dose: 20 mg Lisinopril (Prinivil) 2.5 mg PO DAILY [facility] Last Admin: 12/01/16 17:45 Dose: 2.5 mg Loratadine (Claritin -) 10 mg PO DAILY [facility] Last Admin: 12/01/16 10:39 Dose: 10 mg Lorazepam (Ativan -) 0.5 mg PO Q12H PRN PRN Reason: ANXIETY Last Admin: 11/28/16 09:45 Dose: 0.5 mg Nicotine (Nicoderm Patch -) 21 mg TD DAILY [facility] Last Admin: 12/01/16 10:39 Dose: 21 mg Prednisone (Deltasone -) 40 mg PO DAILY [facility] Last Admin: 12/01/16 10:39 Dose: 40 mg Quetiapine Fumarate (Seroquel -) 12.5 mg PO HS [facility] Last Admin: 11/30/16 22:10 Dose: 12.5 mg Rosuvastatin Calcium (Crestor -) 10 mg PO HS [facility] Last Admin: 11/30/16 22:10 Dose: 10 mg Tiotropium [place] (Spiriva -) 1 puff IH DAILY [facility] Last Admin: 12/01/16 10:39 Dose: 1 puff Zolpidem Tartrate (Ambien -) 10 mg PO HS PRN PRN Reason: INSOMNIA Last Admin: 11/30/16 22:09 Dose: 10 mg Last Vital Signs Temp Pulse Resp BP Pulse Ox 98.4 F 76 18 136/86 95 12/01/16 17:42 12/01/16 17:42 12/01/16 17:42 12/01/16 17:42 12/01/16 10:00 CBC, BMP 12/01/16 06:00 12/01/16 06:00 IMP-COPD EXACERBATION SOB LEG EDEMA S/P LASIX PNA INSOMNIA PINKY? REFUSED SLEEP STUDY SMOKER- NEED ANNUAL LOW DOSE CT SCAN REFUSED PNEUMOVAX/FLUVAX PFT REC AFTER D/C SEROQUEL, MONITOR QT MILD INCR LV, NORMAL EF REC ACEI/ARB (DIASTOLIC HF AND HF / HF with p EF DE PAZ'S CYST PLAN- D/C PLANS CONSULT DR AGOSTO RE PULM REHAB ID and Cardiology evals appreciated will check ct scan of chest to eval for chest patholoy given she is a smoker acute resp failure copd acute exacerbation with fever headaches r/o lower resp tract nfection cxr is s infiltrate with diffuse aeration probable panlobular acute sinusitis? obesity current smoker mild elev BNP- r/o underlying heart disease r/o influenza Plan- iv corticosteroids albuterol
[2016-12-01] MEDS: ZOLPIDEM TARTRATE 5 MG TABLET PO PRN (22:36)
[2016-12-01] MEDS: ASPIRIN COATED 81 MG TABLET.EC PO SCH (22:37)
[2016-12-01] MEDS: QUEtiapine FUMARATE 25 MG TABLET (FP) PO SCH (22:37)
[2016-12-01] MEDS: ROSUVASTATIN CA 10 MG TABLET (FP) PO SCH (22:37)
[2016-12-02] MEDS: ALBUTEROL SO4 2.5/IPRATROPIUM 0.5 INH SOL 3 ML VIAL.NEB. NEB SCH ×4 (06:44→17:35)
--- NOTE | 2016-12-02 10:22 | EKG ---
Test Reason : Blood Pressure : / mmHG Vent. Rate : 080 BPM Atrial Rate : 080 BPM P-R Int : 172 ms QRS Dur : 074 ms QT Int : 396 ms P-R-T Axes : 006 024 042 degrees QTc Int : 456 ms NORMAL SINUS RHYTHM WHEN COMPARED WITH ECG OF 29-NOV-2016 14:06, NO SIGNIFICANT CHANGE WAS FOUND Confirmed by JCARLOS KUMAR MD ([id number]) on 12/02/2016 10:22:29 AM Referred By: PERNELL BATISTA Confirmed By:JCARLOS KUMAR MD
[2016-12-02] MEDS: predniSONE 20 MG TABLET (UD) PO SCH (10:55)
[2016-12-02] MEDS: CHOLECALCIFEROL (VITAMIN D3) 1,000 UNIT TABLET (FP) PO SCH (10:55)
[2016-12-02] MEDS: LISINOPRIL 5 MG TABLET (FP) PO SCH (10:56)
[2016-12-02] MEDS: ENOXAPARIN NA (PORCINE) 40 MG/0.4 ML DISP.SYRIN SQ SCH (10:57)
[2016-12-02] MEDS: NICOTINE 21 MG/24 HOURS TOPICAL PATCH TD SCH (10:57)
[2016-12-02] MEDS: FUROSEMIDE 20 MG TABLET (FP) PO SCH (10:57)
[2016-12-02] MEDS: LORATADINE 10 MG TABLET PO SCH (10:57)
[2016-12-02] MEDS: ATENOLOL 50 MG TABLET (FP) PO SCH (10:58)
[2016-12-02] MEDS ORDERED: PT OWN MED DRAWER 7, Y5N ONE ×2 (11:00→22:17)
[2016-12-02] MEDS: TIOTROPIUM BROMIDE 18 MCG/INH (DEVICE W/ 5 CAPSULES) IH SCH (11:01)
[2016-12-02] MEDS: FLUTICASONE PROP 0.05% 16 GM NASAL SPRAY NS SCH ×2 (11:01→22:22)
--- NOTE | 2016-12-02 17:56 | PN ---
Progress Note, Physician Chief Complaint: Pt A&Ox3; feeling better (no dyspnea; less swelling of ankles); eats "like a horse", which she believes is due to steroids; wants to lose weight. History of Present Illness: Patient is a 66 year old white female (b. [place]) with significant PMH of HTN, HLD, Depression and COPD who presents to ED with shortness of breath. She states she had URI symptoms 1month ago including a runny nose and cough. She went to her PCP and was given Levaquin and a course of Methylprednisolone. She felt better up until 1 week ago when she started to feel feverish. She was 102.4 degrees earlier this week and started to develop a cough. No sputum expectorated but she feels very congested. Patient also complains of intermittent chills, & shortness of breath, notably when she lies flat on her back. Patient denies sore throat, visual changes, diarrhea, constipation, nausea , vomiting, chest pain or abdominal pain. - Current Medication List Current Medications: Active Medications Albuterol/Ipratropium (Duoneb -) 1 amp NEB QIDR [facility] Last Admin: 12/02/16 17:35 Dose: 1 amp Aspirin (Ecotrin -) 81 mg PO HS [facility] Last Admin: 12/01/16 22:37 Dose: 81 mg Atenolol (Tenormin -) 50 mg PO DAILY [facility] Last Admin: 12/02/16 10:58 Dose: 50 mg Cholecalciferol (Vitamin D3 -) 1,000 unit PO DAILY [facility] Last Admin: 12/02/16 10:55 Dose: 1,000 unit Enoxaparin Sodium (Lovenox -) 40 mg SQ DAILY [facility] Last Admin: 12/02/16 10:57 Dose: 40 mg Fluticasone Propionate (Flonase -) 1 spray NS BID [facility] Last Admin: 12/02/16 11:01 Dose: 1 spray Furosemide (Lasix -) 20 mg PO DAILY [facility] Last Admin: 12/02/16 10:57 Dose: 20 mg Lisinopril (Prinivil) 2.5 mg PO DAILY [facility] Last Admin: 12/02/16 10:56 Dose: 2.5 mg Loratadine (Claritin -) 10 mg PO DAILY [facility] Last Admin: 12/02/16 10:57 Dose: 10 mg Nicotine (Nicoderm Patch -) 21 mg TD DAILY [facility] Last Admin: 12/02/16 10:57 Dose: 21 mg Prednisone (Deltasone -) 40 mg PO DAILY [facility] Last Admin: 12/02/16 10:55 Dose: 40 mg Quetiapine Fumarate (Seroquel -) 12.5 mg PO HS [facility] Last Admin: 12/01/16 22:37 Dose: 12.5 mg Rosuvastatin Calcium (Crestor -) 10 mg PO HS [facility] Last Admin: 12/01/16 22:37 Dose: 10 mg Tiotropium [place] (Spiriva -) 1 puff IH DAILY [facility] Last Admin: 12/02/16 11:01 Dose: 1 puff Zolpidem Tartrate (Ambien -) 10 mg PO HS PRN PRN Reason: INSOMNIA Last Admin: 12/01/16 22:36 Dose: 10 mg - Objective Vital Signs: Vital Signs Temperature 98.3 F 12/02/16 15:13 Pulse Rate 71 12/02/16 15:13 Respiratory Rate 20 12/02/16 15:13 Blood Pressure 122/76 12/02/16 15:13 O2 Sat by Pulse Oximetry (%) 96 12/02/16 12:02 Constitutional: Yes: Calm Eyes: Yes: WNL HENT: Yes: WNL Neck: Yes: WNL Cardiovascular: Yes: Regular Rate and Rhythm Respiratory: Yes: Regular Gastrointestinal: Yes: Soft, Abdomen, Obese ...Rectal Exam: Yes: Deferred Genitourinary: No: Anuria Breast(s): Yes: WNL Musculoskeletal: Yes: Muscle Weakness Extremities: Yes: Cool Edema: Yes Edema: LLE: 1+, RLE: 1+ Peripheral Pulses WNL: Yes Integumentary: Yes: Venous Stasis Changes Neurological: Yes: WNL Psychiatric: Yes: WNL Labs: CBC, BMP 12/01/16 06:00 12/01/16 06:00 - ....Imaging EKG: Image Reviewed (NSR; QTc WNL) Problem List - Problems (1) COPD bronchitis Assessment/Plan: bronchodilators, steroids per pulmonary. +Influenza. On Nicotine patch for smoking cessation. Code(s): J44.9 - CHRONIC OBSTRUCTIVE PULMONARY DISEASE, UNSPECIFIED (2) Pneumonia Assessment/Plan: antibiotics per ID. Code(s): J18.9 - PNEUMONIA, UNSPECIFIED ORGANISM (3) Prolonged Q-T interval on ECG Assessment/Plan: Seroquel restarted. 11/29/2016, and again on 12/02/16 EKGs: NSR; normal QTc. ECHO: mildly dilated LV; normal LVEF (on atenolol; consider adding ACEI or ARB because of dilated LV: heart failure with preserved LVEF). Code(s): R94.31 - ABNORMAL ELECTROCARDIOGRAM [ECG] [EKG] (4) Wesley's cyst of knee Code(s): M71.20 - SYNOVIAL CYST OF POPLITEAL SPACE [WESLEY], UNSPECIFIED KNEE (5) Diastolic CHF Assessment/Plan: On atenolol and furosemide. Add lisinopril 2.5 mg daily (HTN; CHF; bilateral LE edema; dilated LV). Code(s): I50.30 - UNSPECIFIED DIASTOLIC (CONGESTIVE) HEART FAILURE (6) Obesity Assessment/Plan: nutrition consult. Increase exercise. Code(s): E66.9 - OBESITY, UNSPECIFIED (7) Influenza Code(s): J11.1 - FLU DUE TO UNIDENTIFIED INFLUENZA VIRUS W OTH RESP MANIFEST (8) Smokes cigarettes Assessment/Plan: on Nicotine patch. Code(s): F17.210 - NICOTINE DEPENDENCE, CIGARETTES, UNCOMPLICATED (10) Bronchiectasis Assessment/Plan: COPD: f/u with pulmonary. Code(s): J47.9 - BRONCHIECTASIS, UNCOMPLICATED
--- NOTE | 2016-12-02 18:49 | CONS ---
DATE OF CONSULTATION: 12/02/2016 PHYSICAL MEDICINE REHABILITATION CONSULTATION HISTORY OF PRESENT ILLNESS: The patient is a 66-year-old woman who is seen in rehabilitation evaluation after admission on November 26, 2016, with shortness of breath and wheezing. Patient has a history of COPD, and developed shortness of breath and wheezing about 3 weeks prior to admission. She improved after a course of oral steroids and Levaquin but developed further problems about a week prior to admission and did not improve on oral steroids and subsequent Levaquin. She developed a fever and severe shortness of breath, wheezing without sputum production, and was admitted with diagnosis of COPD with acute exacerbation and possible pneumonia. Pulmonary infiltrate was noted on CAT scan. Patient was treated with IV steroids, nebulizers, antibiotics, and her condition has started to improve. She underwent further evaluation including an echocardiogram which showed normal left ventricular size and function, although the left ventricle was noted to be slightly dilated, she also underwent vascular studies including duplex on the lower extremities which showed no evidence of deep vein thrombosis. Blood work shows normal WBC 6.3, hemoglobin 12.6, and platelet count 307, and chemistry within normal limits except for low total protein 5.7, albumin 2.8, as well as an elevated BUN of 23 to creatinine 0.7. Her calcium level is slightly low, but corrects for low albumin, and her TSH level was slightly low at 0.31 with a free T3 level low at 1.2, but a normal free T4 at 0.83. Patient is getting ready for discharge, and I was asked to see the patient with regards to possible outpatient pulmonary rehabilitation. REVIEW OF PAST MEDICAL AND SURGICAL HISTORY: Patient is a tobacco user, as well as history of overweight. History of depression. SOCIAL HISTORY: She smokes about 6 to 10 cigarettes per day, and premorbidly was limited by her breathing as well as recent weight gain. REVIEW OF SYSTEMS: No lightheadedness, dizziness. No blurry vision, double vision. No chest pain. She gets dyspneic with exertion. No abdominal discomfort. No bowel/bladder complaints. Patient has no numbness, tingling, or joint arthralgias. She does note swelling in her lower extremities, which was more than previous. PHYSICAL EXAMINATION: General: On examination, friendly woman seen lying in bed. She is awake and conversant and is not short of breath in speaking. Patient has no obvious facial weakness. Neck: Supple. Extremities: Shows +2 edema in both lower extremities with diffuse tenderness but no isolated calf tenderness. She has no obvious cranial nerves deficits. She is awake, alert, and fully oriented, has good insight into her medical conditions. Cranial nerves 2 through 12 appear grossly intact. She has good motor power throughout her upper extremities but some mild proximal weakness at 4/5 in the hip girdle. Good knee flexion, extension. Good dorsiflexion, plantar flexion throughout her lower extremities. Normal sensation to light touch, pinprick, symmetric reflexes. Fairly good standing balance. Steady gait but with dyspnea. OVERALL IMPRESSION: 1. Deficits to mobility and activities of daily living, multifactorial. 2. Deconditioning. 3. Chronic obstructive pulmonary disease with acute exacerbation. 4. Possible pneumonia. 5. Edema lower extremities. 6. Tobacco user. 7. Overweight. 8. Weight gain. PLANS/SUGGESTIONS: 1. Agree with outpatient pulmonary rehabilitation, discussed with her at length. Patient given the contact information. 2. Consider physical therapy as an outpatient. She states that the left ankle does give her problems, although she has good range of motion and strength. It functionally limits her ambulation at times. 3. Pulmonary precaution. 4. Smoking cessation. 5. Weight is a problem. Dietary management. Consider dietary consultation as an outpatient. 6. Will follow up as an outpatient. Thank you for this referral. TAYLOR AGOSTO M.D. [id number] MTDD
[2016-12-02] MEDS: QUEtiapine FUMARATE 25 MG TABLET (FP) PO SCH (22:19)
[2016-12-02] MEDS: ASPIRIN COATED 81 MG TABLET.EC PO SCH (22:19)
[2016-12-02] MEDS: ROSUVASTATIN CA 10 MG TABLET (FP) PO SCH (22:21)
[2016-12-02] MEDS: ZOLPIDEM TARTRATE 5 MG TABLET PO PRN (22:22)
--- NOTE | 2016-12-02 23:54 | PN ---
Progress Note (short form) - Note Progress Note: feels better declines inpatient pulm rehab but plans to attend outpatient pulm rehab leg edema much improved much less sob will d/c home in am on lasix x 5 days prednisone taper nicotine patch lisinopril Current Medications Albuterol/Ipratropium (Duoneb -) 1 amp NEB QIDR [facility] Last Admin: 12/02/16 17:35 Dose: 1 amp Aspirin (Ecotrin -) 81 mg PO HS [facility] Last Admin: 12/02/16 22:19 Dose: 81 mg Atenolol (Tenormin -) 50 mg PO DAILY [facility] Last Admin: 12/02/16 10:58 Dose: 50 mg Cholecalciferol (Vitamin D3 -) 1,000 unit PO DAILY [facility] Last Admin: 12/02/16 10:55 Dose: 1,000 unit Enoxaparin Sodium (Lovenox -) 40 mg SQ DAILY [facility] Last Admin: 12/02/16 10:57 Dose: 40 mg Fluticasone Propionate (Flonase -) 1 spray NS BID [facility] Last Admin: 12/02/16 22:22 Dose: 1 spray Furosemide (Lasix -) 20 mg PO DAILY [facility] Last Admin: 12/02/16 10:57 Dose: 20 mg Lisinopril (Prinivil) 2.5 mg PO DAILY [facility] Last Admin: 12/02/16 10:56 Dose: 2.5 mg Loratadine (Claritin -) 10 mg PO DAILY [facility] Last Admin: 12/02/16 10:57 Dose: 10 mg Nicotine (Nicoderm Patch -) 21 mg TD DAILY [facility] Last Admin: 12/02/16 10:57 Dose: 21 mg Prednisone (Deltasone -) 40 mg PO DAILY [facility] Last Admin: 12/02/16 10:55 Dose: 40 mg Quetiapine Fumarate (Seroquel -) 12.5 mg PO HS [facility] Last Admin: 12/02/16 22:19 Dose: 12.5 mg Rosuvastatin Calcium (Crestor -) 10 mg PO HS [facility] Last Admin: 12/02/16 22:21 Dose: 10 mg Tiotropium [place] (Spiriva -) 1 puff IH DAILY [facility] Last Admin: 12/02/16 11:01 Dose: 1 puff Zolpidem Tartrate (Ambien -) 10 mg PO HS PRN PRN Reason: INSOMNIA Last Admin: 12/02/16 22:22 Dose: 10 mg Last Vital Signs Temp Pulse Resp BP Pulse Ox 98.2 F 77 20 121/84 96 12/02/16 19:26 12/02/16 19:26 12/02/16 19:26 12/02/16 19:26 12/02/16 12:02 CBC, BMP 12/01/16 06:00 12/01/16 06:00 12/01/16 better overall eating more (prednisone effect) pef- 230-240 pulm f/u appreciated-agree to consider pulm rehab also recommends switch to oral meds she still has sob and leg edema foot swelling/edema will consult dr dell [facility] pulm rehab 11/28/16 feeling better, more appetite still with sob, gen weakness cardiol and pulm f/u appreciated copd obese s/o uri, no response to abx and steroids IMP-COPD EXACERBATION SOB LEG EDEMA S/P LASIX PNA INSOMNIA PINKY? REFUSED SLEEP STUDY SMOKER- NEED ANNUAL LOW DOSE CT SCAN REFUSED PNEUMOVAX/FLUVAX PFT REC AFTER D/C SEROQUEL, MONITOR QT MILD INCR LV, NORMAL EF REC ACEI/ARB (DIASTOLIC HF AND HF / HF with p EF DE PAZ'S CYST PLAN- D/C PLANS CONSULT DR [facility] ID and Cardiology evals appreciated will check ct scan of chest to eval for chest patholoy given she is a smoker acute resp failure copd acute exacerbation with fever headaches r/o lower resp tract nfection cxr is s infiltrate with diffuse aeration probable panlobular acute sinusitis? obesity current smoker mild elev BNP- r/o underlying heart disease r/o influenza Plan- iv corticosteroids albuterol
--- NOTE | 2016-12-02 23:57 | DS ---
Physical Examination Vital Signs: Vital Signs Temperature 98.2 F 12/02/16 19:26 Pulse Rate 77 12/02/16 19:26 Respiratory Rate 20 12/02/16 19:26 Blood Pressure 121/84 12/02/16 19:26 O2 Sat by Pulse Oximetry (%) 96 12/02/16 12:02 Constitutional: Yes: Obese Eyes: Yes: WNL, Conjunctiva Clear, EOM Intact HENT: Yes: WNL, Atraumatic, Normocephalic Neck: Yes: WNL, Supple, Trachea Midline Cardiovascular: Yes: WNL, Regular Rate and Rhythm Respiratory: Yes: WNL, Regular, CTA Bilaterally Gastrointestinal: Yes: WNL, Normal Bowel Sounds Musculoskeletal: Yes: WNL Edema: Yes Edema: LLE: 2+, RLE: 2+ Peripheral Pulses WNL: Yes Integumentary: Yes: WNL Neurological: Yes: WNL, Alert, Oriented ...Motor Strength: WNL Psychiatric: Yes: WNL Labs: CBC, BMP 12/01/16 06:00 12/01/16 06:00 Discharge Summary Reason For Visit: CHRONIC OBSTRUCTIVE PULMONARY DISEASE; BRONCHITIS Current Active Problems Wesley's cyst of knee (Acute) Bronchiectasis (Acute) COPD bronchitis (Acute) Chronic obstructive pulmonary disease with acute exacerbation (Acute) Diastolic CHF (Acute) Influenza (Acute) Obesity (Acute) Pneumonia (Acute) Prolonged Q-T interval on ECG (Acute) Pulmonary infiltrate present on computed tomography (Acute) Smokes cigarettes (Acute) The administrative codes within the [employer] content you are accessing may have as of 07/30/2016. Please contact your IT Dept/Help Desk and request the latest Regulatory release be installed. IT Dept/Help Desk- Please refer to our FAQ page ([email or web address]) or contact [employer] Customer Support at [email or web address] (Acute) Hospital Course: feels better declines inpatient pulm rehab but plans to attend outpatient pulm rehab leg edema much improved much less sob will d/c home in am on lasix x 5 days prednisone taper nicotine patch lisinopril Current Medications Albuterol/Ipratropium (Duoneb -) 1 amp NEB QIDR [facility] Last Admin: 12/02/16 17:35 Dose: 1 amp Aspirin (Ecotrin -) 81 mg PO HS [facility] Last Admin: 12/02/16 22:19 Dose: 81 mg Atenolol (Tenormin -) 50 mg PO DAILY [facility] Last Admin: 12/02/16 10:58 Dose: 50 mg Cholecalciferol (Vitamin D3 -) 1,000 unit PO DAILY [facility] Last Admin: 12/02/16 10:55 Dose: 1,000 unit Enoxaparin Sodium (Lovenox -) 40 mg SQ DAILY [facility] Last Admin: 12/02/16 10:57 Dose: 40 mg Fluticasone Propionate (Flonase -) 1 spray NS BID [facility] Last Admin: 12/02/16 22:22 Dose: 1 spray Furosemide (Lasix -) 20 mg PO DAILY [facility] Last Admin: 12/02/16 10:57 Dose: 20 mg Lisinopril (Prinivil) 2.5 mg PO DAILY [facility] Last Admin: 12/02/16 10:56 Dose: 2.5 mg Loratadine (Claritin -) 10 mg PO DAILY [facility] Last Admin: 12/02/16 10:57 Dose: 10 mg Nicotine (Nicoderm Patch -) 21 mg TD DAILY [facility] Last Admin: 12/02/16 10:57 Dose: 21 mg Prednisone (Deltasone -) 40 mg PO DAILY [facility] Last Admin: 12/02/16 10:55 Dose: 40 mg Quetiapine Fumarate (Seroquel -) 12.5 mg PO HS [facility] Last Admin: 12/02/16 22:19 Dose: 12.5 mg Rosuvastatin Calcium (Crestor -) 10 mg PO HS [facility] Last Admin: 12/02/16 22:21 Dose: 10 mg Tiotropium [place] (Spiriva -) 1 puff IH DAILY [facility] Last Admin: 12/02/16 11:01 Dose: 1 puff Zolpidem Tartrate (Ambien -) 10 mg PO HS PRN PRN Reason: INSOMNIA Last Admin: 12/02/16 22:22 Dose: 10 mg Last Vital Signs Temp Pulse Resp BP Pulse Ox 98.2 F 77 20 121/84 96 12/02/16 19:26 12/02/16 19:26 12/02/16 19:26 12/02/16 19:26 12/02/16 12:02 CBC, BMP 12/01/16 06:00 02/02/17 06:00 CBCD WBC 6.3 K/mm3 (4.0-10.0) 12/01/16 06:00 RBC 4.06 M/mm3 (3.60-5.2) 12/01/16 06:00 Hgb 12.6 GM/dL (10.7-15.3) 12/01/16 06:00 Hct 38.0 % (32.4-45.2) 12/01/16 06:00 MCV 93.7 fl (80-96) 12/01/16 06:00 MCHC 33.2 g/dl (32.0-36.0) 12/01/16 06:00 RDW 13.5 % (11.6-15.6) 12/01/16 06:00 Plt Count 307 K/MM3 (134-434) 12/01/16 06:00 MPV 8.0 fl (7.5-11.1) 12/01/16 06:00 CMP Sodium 143 mmol/L (136-145) 12/01/16 06:00 Potassium 3.7 mmol/L (3.5-5.1) 12/01/16 06:00 Chloride 103 mmol/L (98-107) 12/01/16 06:00 Carbon Dioxide 31 mmol/L (21-32) 12/01/16 06:00 Anion Gap 9 (8-16) 12/01/16 06:00 BUN 23 mg/dL (7-18) H D 12/01/16 06:00 Creatinine 0.7 mg/dL (0.55-1.02) 12/01/16 06:00 Creat Clearance w eGFR > 60 (>60) 11/29/16 06:00 Calcium 8.4 mg/dL (8.5-10.1) L 12/01/16 06:00 Total Bilirubin 0.3 mg/dL (0.2-1.0) D 11/29/16 06:00 AST 13 U/L (15-37) L 11/29/16 06:00 ALT 27 U/L (12-78) 11/29/16 06:00 Alkaline Phosphatase 51 U/L (45-117) D 11/29/16 06:00 Total Protein 5.7 g/dl (6.4-8.2) L 11/29/16 06:00 Albumin 2.8 g/dl (3.4-5.0) L 11/29/16 06:00 12/01/16 better overall eating more (prednisone effect) pef- 230-240 pulm f/u appreciated-agree to consider pulm rehab also recommends switch to oral meds she still has sob and leg edema foot swelling/edema will consult dr [facility] pul[facility] 11/28/16 feeling better, more appetite still with sob, gen weakness cardiol and pulm f/u appreciated copd obese s/o uri, no response to abx and steroids IMP-COPD EXACERBATION SOB LEG EDEMA S/P LASIX PNA INSOMNIA PINKY? REFUSED SLEEP STUDY SMOKER- NEED ANNUAL LOW DOSE CT SCAN REFUSED PNEUMOVAX/FLUVAX PFT REC AFTER D/C SEROQUEL, MONITOR QT MILD INCR LV, NORMAL EF REC ACEI/ARB (DIASTOLIC HF AND HF / HF with p EF WESLEY'S CYST PLAN- D/C PLANS CONSULT DR [facility] ID and Cardiology evals appreciated will check ct scan of chest to eval for chest patholoy given she is a smoker acute resp failure copd acute exacerbation with fever headaches r/o lower resp tract nfection cxr is s infiltrate with diffuse aeration probable panlobular acute sinusitis? obesity current smoker mild elev BNP- r/o underlying heart disease r/o influenza Plan- iv corticosteroids albuterol - Instructions Referrals: Clare Rodriguez MD [Primary Care Provider] - Al Caro MD [Staff Physician] - Jimi Harris MD [Staff Physician] - Paul Bolaños MD [Staff Physician] - Disposition: HOME - Home Medications Comprehensive Discharge Medication List: Ambulatory Orders Atenolol [Tenormin -] 50 mg PO DAILY 04/19/13 Albuterol Sulfate Inhaler - [Ventolin HFA Inhaler -] 1 - 2 inh PO QID #1 inhaler 03/01/15 Aspirin [Ecotrin] 81 mg PO DAILY 03/01/15 Cholecalciferol (Vitamin D3) [Vitamin D3] 1,000 unit PO DAILY 03/01/15 Quetiapine Fumarate [Seroquel -] 12.5 mg PO HS 03/01/15 Rosuvastatin Calcium [Crestor] 10 mg PO HS 03/01/15 Zolpidem Tartrate [Ambien] 10 mg PO HS 03/01/15 Fluticasone Prop 0.05% Nasal [Flonase -] 1 spray NS BID #1 spray 12/02/16 Furosemide [Lasix -] 20 mg PO DAILY #5 tablet 12/02/16 Lisinopril [Prinivil] 2.5 mg PO DAILY #30 tablet 12/02/16 Loratadine [Claritin -] 10 mg PO DAILY #30 tablet 12/02/16 Nicotine Patch [Nicoderm Patch -] 21 mg TD DAILY #14 patch 12/02/16 Prednisone [Deltasone -] See Taper PO DAILY #30 tablet 12/02/16 Tiotropium [place] [Spiriva] 1 puff IH DAILY #1 inh 12/02/16 Zolpidem Tartrate 10 mg PO HS #7 tablet MDD 1 12/02/16 Zolpidem Tartrate [Ambien] 10 mg PO HS PRN #7 tablet MDD 1 12/02/16
[2016-12-03] MEDS: ALBUTEROL SO4 2.5/IPRATROPIUM 0.5 INH SOL 3 ML VIAL.NEB. NEB SCH ×4 (06:30→18:00)
[2016-12-03] MEDS ORDERED: PT OWN MED DRAWER 7, Y5N ONE ×2 (08:57→23:05)
[2016-12-03] MEDS: LORATADINE 10 MG TABLET PO SCH (09:14)
[2016-12-03] MEDS: LISINOPRIL 5 MG TABLET (FP) PO SCH (09:14)
[2016-12-03] MEDS: FUROSEMIDE 20 MG TABLET (FP) PO SCH (09:14)
[2016-12-03] MEDS: ATENOLOL 50 MG TABLET (FP) PO SCH (09:14)
[2016-12-03] MEDS: predniSONE 20 MG TABLET (UD) PO SCH (09:14)
[2016-12-03] MEDS: NICOTINE 21 MG/24 HOURS TOPICAL PATCH TD SCH (09:15)
[2016-12-03] MEDS: CHOLECALCIFEROL (VITAMIN D3) 1,000 UNIT TABLET (FP) PO SCH (09:15)
[2016-12-03] MEDS: ENOXAPARIN NA (PORCINE) 40 MG/0.4 ML DISP.SYRIN SQ SCH (09:15)
[2016-12-03] MEDS: FLUTICASONE PROP 0.05% 16 GM NASAL SPRAY NS SCH ×2 (09:15→23:07)
[2016-12-03] MEDS: TIOTROPIUM BROMIDE 18 MCG/INH (DEVICE W/ 5 CAPSULES) IH SCH (09:17)
--- NOTE | 2016-12-03 09:51 | PN ---
Progress Note, Physician History of Present Illness: Patient is a 66 year old female with significant PMH of HTN, HLD, Depression and COPD who presents to ED with shortness of breath. She states she had URI symptoms 1month ago including a runny nose and cough. She went to her PCP and was given Levaquin and a course of Methylprednisolone. She felt better up until 1 week ago when she started to feel feverish. She was 102.4 degrees earlier this week and started to develop a cough. No sputum expectorated but she feels very congested. Patient also complains of intermittent chills, & shortness of breath, notably when she lies flat on her back. Patient denies sore throat, visual changes, diarrhea, constipation, nausea, vomiting, chest pain or abdominal pain. - Current Medication List Current Medications: Active Medications Albuterol/Ipratropium (Duoneb -) 1 amp NEB QIDR [facility] Last Admin: 12/03/16 06:30 Dose: 1 amp Aspirin (Ecotrin -) 81 mg PO HS [facility] Last Admin: 12/02/16 22:19 Dose: 81 mg Atenolol (Tenormin -) 50 mg PO DAILY [facility] Last Admin: 12/03/16 09:14 Dose: 50 mg Cholecalciferol (Vitamin D3 -) 1,000 unit PO DAILY [facility] Last Admin: 12/03/16 09:15 Dose: 1,000 unit Enoxaparin Sodium (Lovenox -) 40 mg SQ DAILY [facility] Last Admin: 12/03/16 09:15 Dose: 40 mg Fluticasone Propionate (Flonase -) 1 spray NS BID [facility] Last Admin: 12/03/16 09:15 Dose: 1 spray Furosemide (Lasix -) 20 mg PO DAILY [facility] Last Admin: 12/03/16 09:14 Dose: 20 mg Lisinopril (Prinivil) 2.5 mg PO DAILY [facility] Last Admin: 12/03/16 09:14 Dose: 2.5 mg Loratadine (Claritin -) 10 mg PO DAILY [facility] Last Admin: 12/03/16 09:14 Dose: 10 mg Nicotine (Nicoderm Patch -) 21 mg TD DAILY [facility] Last Admin: 12/03/16 09:15 Dose: 21 mg Prednisone (Deltasone -) 40 mg PO DAILY [facility] Last Admin: 12/03/16 09:14 Dose: 40 mg Quetiapine Fumarate (Seroquel -) 12.5 mg PO HS [facility] Last Admin: 12/02/16 22:19 Dose: 12.5 mg Rosuvastatin Calcium (Crestor -) 10 mg PO [facility] Last Admin: 12/02/16 22:21 Dose: 10 mg Tiotropium [place] (Spiriva -) 1 puff IH DAILY [facility] Last Admin: 12/03/16 09:17 Dose: 1 puff Zolpidem Tartrate (Ambien -) 10 mg PO HS PRN PRN Reason: INSOMNIA Last Admin: 12/02/16 22:22 Dose: 10 mg - Objective Vital Signs: Vital Signs Temperature 97.8 F 12/03/16 09:00 Pulse Rate 80 12/03/16 09:00 Respiratory Rate 20 12/03/16 09:00 Blood Pressure 137/70 12/03/16 09:00 O2 Sat by Pulse Oximetry (%) 99 12/02/16 21:00 Eyes: Yes: WNL, Conjunctiva Clear, EOM Intact HENT: Yes: WNL, Atraumatic, Normocephalic Neck: Yes: WNL, Supple, Trachea Midline Cardiovascular: Yes: WNL, Regular Rate and Rhythm Respiratory: Yes: WNL, Regular, CTA Bilaterally Gastrointestinal: Yes: WNL, Normal Bowel Sounds Genitourinary: Yes: WNL Musculoskeletal: Yes: WNL Extremities: Yes: WNL Edema: No Integumentary: Yes: WNL Neurological: Yes: WNL, Alert, Oriented ...Motor Strength: WNL Psychiatric: Yes: WNL Labs: CBC, BMP 12/01/16 06:00 12/01/16 06:00 Assessment/Plan (1) COPD bronchitis Assessment/Plan: bronchodilators, steroids per pulmonary. +Influenza. On Nicotine patch for smoking cessation. Code(s): J44.9 - CHRONIC OBSTRUCTIVE PULMONARY DISEASE, UNSPECIFIED (2) Pneumonia Assessment/Plan: antibiotics per ID. Code(s): J18.9 - PNEUMONIA, UNSPECIFIED ORGANISM (3) Prolonged Q-T interval on ECG Assessment/Plan: Seroquel restarted. 11/29/2016, and again on 12/02/16 EKGs: NSR; normal QTc. ECHO: mildly dilated LV; normal LVEF (on atenolol; consider adding ACEI or ARB because of dilated LV: heart failure with preserved LVEF). Code(s): R94.31 - ABNORMAL ELECTROCARDIOGRAM [ECG] [EKG] (4) Wesley's cyst of knee Code(s): M71.20 - SYNOVIAL CYST OF POPLITEAL SPACE [WESLEY], UNSPECIFIED KNEE (5) Diastolic CHF Assessment/Plan: On atenolol and furosemide. Add lisinopril 2.5 mg daily (HTN; CHF; bilateral LE edema; dilated LV). Code(s): I50.30 - UNSPECIFIED DIASTOLIC (CONGESTIVE) HEART FAILURE (6) Obesity Assessment/Plan: nutrition consult. Increase exercise. Code(s): E66.9 - OBESITY, UNSPECIFIED (7) Influenza Code(s): J11.1 - FLU DUE TO UNIDENTIFIED INFLUENZA VIRUS W OTH RESP MANIFEST (8) Smokes cigarettes Assessment/Plan: on Nicotine patch. Code(s): F17.210 - NICOTINE DEPENDENCE, CIGARETTES, UNCOMPLICATED (10) Bronchiectasis Assessment/Plan: COPD: f/u with pulmonary. Code(s): J47.9 - BRONCHIECTASIS, UNCOMPLICATED
[2016-12-03] MEDS: QUEtiapine FUMARATE 25 MG TABLET (FP) PO SCH (22:06)
[2016-12-03] MEDS: ROSUVASTATIN CA 10 MG TABLET (FP) PO SCH (22:06)
[2016-12-03] MEDS: ASPIRIN COATED 81 MG TABLET.EC PO SCH (22:06)
[2016-12-03] MEDS ORDERED: ZOLPIDEM TARTRATE 5 MG TABLET PO PRN (22:50)
--- NOTE | 2016-12-03 23:10 | PN ---
Progress Note (short form) - Note Progress Note: discharge cancelled due to finding of very low O2 sat she will eed continueous O2 at home she was reinforced to go to pulm rehab after discharge also will need f/u with dr andres after her steroid taper Discussed with dr frye re any evidence of pulm hypertension no clear pulm htn on echo- mild tr feels better declines inpatient pulm rehab but plans to attend outpatient pulm rehab leg edema much improved much less sob will d/c home in am on lasix x 5 days prednisone taper nicotine patch lisinopril Current Medications Albuterol/Ipratropium (Duoneb -) 1 amp NEB QIDR [facility] Last Admin: 12/03/16 18:00 Dose: 1 amp Aspirin (Ecotrin -) 81 mg PO HS [facility] Last Admin: 12/03/16 22:06 Dose: 81 mg Atenolol (Tenormin -) 50 mg PO DAILY [facility] Last Admin: 12/03/16 09:14 Dose: 50 mg Cholecalciferol (Vitamin D3 -) 1,000 unit PO DAILY [facility] Last Admin: 12/03/16 09:15 Dose: 1,000 unit Enoxaparin Sodium (Lovenox -) 40 mg SQ DAILY [facility] Last Admin: 12/03/16 09:15 Dose: 40 mg Fluticasone Propionate (Flonase -) 1 spray NS BID [facility] Last Admin: 12/03/16 23:07 Dose: 1 spray Furosemide (Lasix -) 20 mg PO DAILY [facility] Last Admin: 12/03/16 09:14 Dose: 20 mg Lisinopril (Prinivil) 2.5 mg PO DAILY [facility] Last Admin: 12/03/16 09:14 Dose: 2.5 mg Loratadine (Claritin -) 10 mg PO DAILY [facility] Last Admin: 12/03/16 09:14 Dose: 10 mg Nicotine (Nicoderm Patch -) 21 mg TD DAILY [facility] Last Admin: 12/03/16 09:15 Dose: 21 mg Prednisone (Deltasone -) 40 mg PO DAILY [facility] Last Admin: 12/03/16 09:14 Dose: 40 mg Quetiapine Fumarate (Seroquel -) 12.5 mg PO HS [facility] Last Admin: 12/03/16 22:06 Dose: 12.5 mg Rosuvastatin Calcium (Crestor -) 10 mg PO HS [facility] Last Admin: 12/03/16 22:06 Dose: 10 mg Tiotropium Interior (Spiriva -) 1 puff IH DAILY [facility] Last Admin: 12/03/16 09:17 Dose: 1 puff Zolpidem Tartrate (Ambien -) 10 mg PO HS PRN PRN Reason: INSOMNIA Last Admin: 12/03/16 23:07 Dose: 10 mg Last Vital Signs Temp Pulse Resp BP Pulse Ox 98.3 F 76 20 123/78 96 12/03/16 18:00 12/03/16 18:00 12/03/16 18:00 12/03/16 18:00 12/03/16 10:40 CBC, BMP 12/01/16 06:00 12/01/16 06:00 12/01/16 better overall eating more (prednisone effect) pef- 230-240 pulm f/u appreciated-agree to consider pulm rehab also recommends switch to oral meds she still has sob and leg edema foot swelling/edema will consult dr triny morton pulm rehab 11/28/16 feeling better, more appetite still with sob, gen weakness cardiol and pulm f/u appreciated copd obese s/o uri, no response to abx and steroids IMP-COPD EXACERBATION SOB LEG EDEMA S/P LASIX PNA INSOMNIA PINKY? REFUSED SLEEP STUDY SMOKER- NEED ANNUAL LOW DOSE CT SCAN REFUSED PNEUMOVAX/FLUVAX PFT REC AFTER D/C SEROQUEL, MONITOR QT MILD INCR LV, NORMAL EF REC ACEI/ARB (DIASTOLIC HF AND HF / HF with p EF DE PAZ'S CYST PLAN- D/C PLANS CONSULT DR TRINY [facility]ORT[facility] ID and Cardiology evals appreciated will check ct scan of chest to eval for chest patholoy given she is a smoker acute resp failure copd acute exacerbation with fever headaches r/o lower resp tract nfection cxr is s infiltrate with diffuse aeration probable panlobular acute sinusitis? obesity current smoker mild elev BNP- r/o underlying heart disease r/o influenza Plan- iv corticosteroids albuterol
[2016-12-04] MEDS: ALBUTEROL SO4 2.5/IPRATROPIUM 0.5 INH SOL 3 ML VIAL.NEB. NEB SCH ×3 (06:42→11:50)
[2016-12-04] MEDS ORDERED: PT OWN MED DRAWER 7, Y5N ONE (10:14)
[2016-12-04] MEDS: TIOTROPIUM BROMIDE 18 MCG/INH (DEVICE W/ 5 CAPSULES) IH SCH (10:24)
[2016-12-04] MEDS: NICOTINE 21 MG/24 HOURS TOPICAL PATCH TD SCH (10:24)
[2016-12-04] MEDS: CHOLECALCIFEROL (VITAMIN D3) 1,000 UNIT TABLET (FP) PO SCH (10:25)
[2016-12-04] MEDS: FUROSEMIDE 20 MG TABLET (FP) PO SCH (10:25)
[2016-12-04] MEDS: ATENOLOL 50 MG TABLET (FP) PO SCH (10:25)
[2016-12-04] MEDS: LISINOPRIL 5 MG TABLET (FP) PO SCH (10:25)
[2016-12-04] MEDS: predniSONE 20 MG TABLET (UD) PO SCH (10:25)
[2016-12-04] MEDS: LORATADINE 10 MG TABLET PO SCH (10:25)
[2016-12-04] MEDS: ENOXAPARIN NA (PORCINE) 40 MG/0.4 ML DISP.SYRIN SQ SCH (10:26)
[2016-12-04] MEDS: FLUTICASONE PROP 0.05% 16 GM NASAL SPRAY NS SCH (10:29)
--- NOTE | 2016-12-04 11:12 | PN ---
Progress Note, Physician History of Present Illness: Patient is a 66 year old female with significant PMH of HTN, HLD, Depression and COPD who presents to ED with shortness of breath. She states she had URI symptoms 1month ago including a runny nose and cough. She went to her PCP and was given Levaquin and a course of Methylprednisolone. She felt better up until 1 week ago when she started to feel feverish. She was 102.4 degrees earlier this week and started to develop a cough. No sputum expectorated but she feels very congested. Patient also complains of intermittent chills, & shortness of breath, notably when she lies flat on her back. Patient denies sore throat, visual changes, diarrhea, constipation, nausea, vomiting, chest pain or abdominal pain. - Current Medication List Current Medications: Active Medications Albuterol/Ipratropium (Duoneb -) 1 amp NEB QIDR [facility] Last Admin: 12/04/16 06:42 Dose: 1 amp Aspirin (Ecotrin -) 81 mg PO HS [facility] Last Admin: 12/03/16 22:06 Dose: 81 mg Atenolol (Tenormin -) 50 mg PO DAILY [facility] Last Admin: 12/04/16 10:25 Dose: 50 mg Cholecalciferol (Vitamin D3 -) 1,000 unit PO DAILY [facility] Last Admin: 12/04/16 10:25 Dose: 1,000 unit Enoxaparin Sodium (Lovenox -) 40 mg SQ DAILY [facility] Last Admin: 12/04/16 10:26 Dose: 40 mg Fluticasone Propionate (Flonase -) 1 spray NS BID [facility] Last Admin: 12/04/16 10:29 Dose: 1 spray Furosemide (Lasix -) 20 mg PO DAILY [facility] Last Admin: 12/04/16 10:25 Dose: 20 mg Lisinopril (Prinivil) 2.5 mg PO DAILY [facility] Last Admin: 12/04/16 10:25 Dose: 2.5 mg Loratadine (Claritin -) 10 mg PO DAILY [facility] Last Admin: 12/04/16 10:25 Dose: 10 mg Nicotine (Nicoderm Patch -) 21 mg TD DAILY [facility] Last Admin: 12/04/16 10:24 Dose: 21 mg Prednisone (Deltasone -) 40 mg PO DAILY [facility] Last Admin: 12/04/16 10:25 Dose: 40 mg Quetiapine Fumarate (Seroquel -) 12.5 mg PO [facility] Last Admin: 12/03/16 22:06 Dose: 12.5 mg Rosuvastatin Calcium (Crestor -) 10 mg PO [facility] Last Admin: 12/03/16 22:06 Dose: 10 mg Tiotropium [place] (Spiriva -) 1 puff IH DAILY [facility] Last Admin: 12/04/16 10:24 Dose: 1 puff Zolpidem Tartrate (Ambien -) 10 mg PO HS PRN PRN Reason: INSOMNIA Last Admin: 12/03/16 23:07 Dose: 10 mg - Objective Vital Signs: Vital Signs Temperature 98.5 F 12/04/16 05:52 Pulse Rate 76 12/04/16 05:52 Respiratory Rate 20 12/04/16 05:52 Blood Pressure 128/58 12/04/16 05:52 O2 Sat by Pulse Oximetry (%) 96 12/03/16 22:00 Eyes: Yes: WNL, Conjunctiva Clear, EOM Intact HENT: Yes: WNL, Atraumatic, Normocephalic Neck: Yes: WNL, Supple, Trachea Midline Cardiovascular: Yes: WNL, Regular Rate and Rhythm Respiratory: Yes: WNL, Regular, CTA Bilaterally Gastrointestinal: Yes: WNL, Normal Bowel Sounds Genitourinary: Yes: WNL Musculoskeletal: Yes: WNL Extremities: Yes: WNL Edema: No Integumentary: Yes: WNL Neurological: Yes: WNL, Alert, Oriented ...Motor Strength: WNL Psychiatric: Yes: WNL Labs: CBC, BMP 12/01/16 06:00 12/01/16 06:00 Assessment/Plan (1) COPD bronchitis Assessment/Plan: bronchodilators, steroids per pulmonary. +Influenza. On Nicotine patch for smoking cessation. Code(s): J44.9 - CHRONIC OBSTRUCTIVE PULMONARY DISEASE, UNSPECIFIED (2) Pneumonia Assessment/Plan: antibiotics per ID. Code(s): J18.9 - PNEUMONIA, UNSPECIFIED ORGANISM (3) Prolonged Q-T interval on ECG Assessment/Plan: Seroquel restarted. 11/29/2016, and again on 12/02/16 EKGs: NSR; normal QTc. ECHO: mildly dilated LV; normal LVEF (on atenolol; consider adding ACEI or ARB because of dilated LV: heart failure with preserved LVEF). Code(s): R94.31 - ABNORMAL ELECTROCARDIOGRAM [ECG] [EKG] (4) Wesley's cyst of knee Code(s): M71.20 - SYNOVIAL CYST OF POPLITEAL SPACE [WESELY], UNSPECIFIED KNEE (5) Diastolic CHF Assessment/Plan: On atenolol and furosemide. Add lisinopril 2.5 mg daily (HTN; CHF; bilateral LE edema; dilated LV). Code(s): I50.30 - UNSPECIFIED DIASTOLIC (CONGESTIVE) HEART FAILURE (6) Obesity Assessment/Plan: nutrition consult. Increase exercise. Code(s): E66.9 - OBESITY, UNSPECIFIED (7) Influenza Code(s): J11.1 - FLU DUE TO UNIDENTIFIED INFLUENZA VIRUS W OTH RESP MANIFEST (8) Smokes cigarettes Assessment/Plan: on Nicotine patch. Code(s): F17.210 - NICOTINE DEPENDENCE, CIGARETTES, UNCOMPLICATED (10) Bronchiectasis Assessment/Plan: COPD: f/u with pulmonary. Code(s): J47.9 - BRONCHIECTASIS, UNCOMPLICATED
[2016-12-04 13:19] VITALS: BP 125/70; PULSE 77; TEMP 97.8
== END 2016-12-04 15:07 | disposition home or self-care (01) | DRG 190 ==
LOC: JER 16:08 → JERBED 19:36 → J7W 20:34 → OBSVTOIN 11-28 12:30
PROVIDERS: ADMIT Internal Medicine Nephrology; ATTEND Internal Medicine Nephrology
DX: J44.1 Chronic obstructive pulmonary disease with (acute) exacerbation (principal); J96.00 Acute respiratory failure, unspecified whether with hypoxia or hypercapnia; J18.9 Pneumonia, unspecified organism; I50.30 Unspecified diastolic (congestive) heart failure; Z68.42 Body mass index [BMI] 45.0-49.9, adult; J45.901 Unspecified asthma with (acute) exacerbation; F17.210 Nicotine dependence, cigarettes, uncomplicated; E66.01 Morbid (severe) obesity due to excess calories; J20.9 Acute bronchitis, unspecified; J06.9 Acute upper respiratory infection, unspecified; E78.5 Hyperlipidemia, unspecified; J11.1 Influenza due to unidentified influenza virus with other respiratory manifestations; I11.0 Hypertensive heart disease with heart failure
CPT/HCPCS: 36415; 70486-TC; 71010-TC; 71250-TC; 80048; 80053; 80061; 82550; 83036; 83605; 83721; 83735; 83880; 84439; 84443; 84481; 84484; 85027; 87040; 87254; 87804; 93005; 93010; 93225; 93226; 93306-TC; 93970-TC; 94150; 94640; 94761; 99283-25; G0378

== ENCOUNTER 2017-05-25 15:57 | Inpatient (IN) | payer BC ==
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
--- NOTE | 2017-05-25 16:16 | PDOC ---
Attending Attestation - HPI HPI: The patient is a 66 yo F with a past medical history of COPD, HTN, HLD, pneumonia, borderline DM, hysterectomy, breast cyst removal, and depression who presents with abdominal pain and umbilical hernia for found to have diverticulitis on CT scan yesterday. Patient states she saw Dr. Linton yesterday who recommended she be admitted for IV antibiotics. PCP was contacted by phone and will admit the patient to her service at [place] with consultation of Dr. Linton. The patient denies nausea, vomiting and diarrhea. The patient states she hasnt eaten in two days secondary to the pain. Patient denies fevers, chills. Social Hx: Former smoker, former drinker PCP: Dr. Rodriguez - Physicial Exam PE: GENERAL: Well developed, well nourished. Awake and alert. No acute distress. HEENT: Normocephalic, atraumatic. PERRLA, EOMI. No conjunctival pallor. Sclera are non- icteric. Moist mucous membranes. Oropharynx is clear. NECK: Supple. Full ROM. No JVD. Carotid pulses 2+ and symmetric, without bruits. No thyromegaly. No lymphadenopathy. CARDIOVASCULAR: Regular rate and rhythm. No murmurs, rubs, or gallops. Distal pulses are 2+ and symmetric. PULMONARY: No evidence of respiratory distress. Lungs clear to auscultation bilaterally. No wheezing, rales or rhonchi. ABDOMINAL: Soft. Mild suprapubic tenderness. Mild abdominal distension. Umbilical hernia appears freely reducible. No rebound or guarding. No organomegaly. Normoactive bowel sounds. MUSCULOSKELETAL Normal range of motion at all joints. No bony deformities or tenderness. No CVA tenderness. EXTREMITIES: No cyanosis. No clubbing. No edema. No calf tenderness. SKIN: Warm and dry. Normal capillary refill. No rashes. No jaundice. NEUROLOGICAL: No gross focal neurological deficits. PSYCHIATRIC: Cooperative. Good eye contact. Appropriate mood and affect. - Medical Decision Making Documentation prepared by Beryl Castellon, acting as medical housekeeper for Emergency Dept,[employer]/. <Beryl Castellon - Last Filed: 05/25/17 16:40> - Resident Resident Name: Zain Esquivel - ED Attending Attestation I have performed the following: I have examined & evaluated the patient, The case was reviewed & discussed with the resident, I agree w/resident's findings & plan, Exceptions are as noted - HPI HPI: 05/25/17 16:35 Abdominal pain for about a month which had been attributed to a ventral/ umbilical hernia. However, acute exacerbation of the pain in the last several days. Saw , surgery, who suspected incarcerated hernia, ordered CAT scan yesterday, which showed extensive diverticulitis of the sigmoid colon. There was no discrete abscess. He recommends admission for IV antibiotics and surgical follow-up. - Physicial Exam PE: 05/25/17 16:36 There is no fever. Patient is mildly distended but bowel sounds are normal. The abdomen is soft but there is tenderness in the left lower quadrant to deep palpation. However this is mild. There is no guarding or rebound. Small umbilical hernia appears freely reducible. 05/25/17 16:52 - Medical Decision Making 05/25/17 16:38 Dr. Rodriguez who is the patient's primary physician was contacted by phone. She will admit the patient for intravenous antibiotics with consultation surgical 05/25/17 16:52 <Carlos Wilson - Last Filed: 05/25/17 16:53>
[2017-05-25 16:25] LABS: URINE BILIRUBIN 1+ (NEGATIVE); URINE BLOOD Trace-lysed (NEGATIVE); URINE GLUCOSE (UA) Negative (NEGATIVE); URINE KETONE Negative (NEGATIVE); URINE NITRITE Negative (NEGATIVE)
[2017-05-25 16:26] LABS: URINE APPEARANCE HAZY; URINE COLOR YELLOW; URINE LEUK ESTERASE 1+ (NEGATIVE); URINE PROTEIN 1+ (NEGATIVE)
[2017-05-25 16:43] LABS: BASOPHIL 0.3 % (0-2.0); EOSINOPHIL 0.9 % (0-4.5); MCH 28.5 pg (25.7-33.7); MCHC 33.5 g/dl (32.0-36.0); MEAN CELL VOLUME 85.2 fl (80-96); MEAN PLT VOLUME 8.7 fl (7.5-11.1); NEUTROPHILS 76.6 % (42.8-82.8); PLATELET COUNT 457 K/MM3 (134-434); RDW 12.7 % (11.6-15.6); WHITE BLOOD COUNT 10.1 K/mm3 (4.0-10.8)
[2017-05-25] MEDS ORDERED: PIPERACILLIN/TAZOB 3.375 GM 3.375 GM in DEXTROSE 5%-WATER - 50 ML IVPB ONE (16:59)
[2017-05-25 17:05] LABS: ALBUMIN 3.5 g/dl (3.5-5.0); ALK PHOS 106 U/L (32-92); ANION GAP 11 (8-16); BILIRUBIN,TOTAL 0.4 mg/dl (0.2-1.0); CALCIUM 9.6 mg/dl (8.4-10.2); CO2 26 mmol/L (22-28); CREATININE 1.1 mg/dl (0.6-1.3); GLUCOSE,RANDOM 114 mg/dl (74-106); SGOT/AST 20 U/L (10-42); SGPT/ALT 18 U/L (10-40); TOT PROT 7.1 g/dl (6.4-8.3)
[2017-05-25 17:26] LABS: URINE BACTERIA FEW /hpf (NEGATIVE); URINE RBC 0-2 /hpf (0-3)
[2017-05-25 17:46] VITALS: BMI 45.1
[2017-05-25] MEDS ORDERED: IBUPROFEN 400 MG TABLET (FP) PO PRN (21:03)
[2017-05-25] MEDS ORDERED: SODIUM CHLORIDE 0.45% 1,000 ML IV SCH (21:15)
[2017-05-25] MEDS: ZOLPIDEM TARTRATE 5 MG TABLET PO PRN (22:04)
[2017-05-25] MEDS: QUEtiapine FUMARATE 25 MG TABLET (FP) PO SCH (22:04)
[2017-05-25] MEDS: ROSUVASTATIN CA 10 MG TABLET (FP) PO SCH (22:04)
[2017-05-26] MEDS: PIPERACILLIN/TAZOB 3.375 GM/50 ML PRE-DOCKED IVPB SCH ×2 (01:25→09:32)
[2017-05-26 08:25] LABS: ALK PHOS 92 U/L (32-92); ANION GAP 9 (8-16); BILIRUBIN,TOTAL 0.5 mg/dl (0.2-1.0); CALCIUM 9.2 mg/dl (8.4-10.2); CO2 28 mmol/L (22-28); CREATININE 0.9 mg/dl (0.6-1.3); GLUCOSE,RANDOM 112 mg/dl (74-106); SGOT/AST 16 U/L (10-42); SGPT/ALT 16 U/L (10-40); TOT PROT 6.4 g/dl (6.4-8.3)
[2017-05-26 08:28] LABS: MCH 27.9 pg (25.7-33.7); MCHC 32.9 g/dl (32.0-36.0); MEAN PLT VOLUME 8.8 fl (7.5-11.1); PLATELET COUNT 424 K/MM3 (134-434); RDW 12.5 % (11.6-15.6); WHITE BLOOD COUNT 7.7 K/mm3 (4.0-10.8)
--- NOTE | 2017-05-26 08:59 | PN ---
Progress Note (short form) - Note Progress Note: Surgery pt seen and examined. Full consult dictated. 66f, morbidly obese, had elective ct for presumed hernia pain, found to have uncomplicated diverticulitis and was admitted for IV abx. Pt had failed colonoscopy 3 years ago due to poor prep and had barium enema at that time with report currently unavailable to me becuase of computer failure. Pt states the barium enema showed colits. Pt was admitted with npo and iv zosyn. Pain improved and pt asking for food. afebrile abd- soft, minimal suprapubic tenderness, small ventral hernia reducible, pfannestiel inicision. Plan- acute on possible chronic diverticulitis. Less likely malignancy. Pt offered exploratory surgery with colostomy to r/o malignancy and declines. will start clear liquids. cont iv abx. Can advance diet and d/c home with tenderness resolves likely in 2-3 days. Consider GI eval as she will need colonoscopy in about 6 weeks. She blames Dr. Suárez for the previous poor prep on her colonoscopy and will not return to him. Pt is not toxic. Obviously if she deteriorates she will need exploratory surgery with colectomy/ colostomy. With only her first admission and age 66 would not offer elective resection at this point.
--- NOTE | 2017-05-26 09:29 | PN ---
Progress Note (short form) - Note Progress Note: ID consult dictated Acute sigmoid diverticulitis Await c/s Empiric zosyn
[2017-05-26] MEDS: ATENOLOL 25 MG TABLET (FP) PO SCH (09:32)
[2017-05-26] MEDS: ASPIRIN COATED 81 MG TABLET.EC PO SCH (09:32)
[2017-05-26] MEDS ORDERED: PIPERACILLIN/TAZOB 3.375 GM 3.375 GM in DEXTROSE 5%-WATER - 50 ML IVPB SCH (10:00)
--- NOTE | 2017-05-26 10:06 | EKG ---
Test Reason : Blood Pressure : / mmHG Vent. Rate : 072 BPM Atrial Rate : 072 BPM P-R Int : 192 ms QRS Dur : 076 ms QT Int : 412 ms P-R-T Axes : 020 035 046 degrees QTc Int : 451 ms SINUS RHYTHM WHEN COMPARED WITH ECG OF 02-DEC-2016 08:29, NO SIGNIFICANT CHANGE WAS FOUND Confirmed by DHIRAJ RASCON MD ([id number]) on 05/26/2017 10:06:38 AM Referred By: DR HARVEY Confirmed By:DHIRAJ RASCON MD
[2017-05-26] MEDS ORDERED: PIPERACILLIN/TAZOB 3.375 GM/50 ML PRE-DOCKED IVPB SCH (18:00)
[2017-05-26] MEDS: PIPERACILLIN/TAZOB 3.375 GM 50 ML IVPB SCH (18:02)
[2017-05-26] MEDS: PANTOPRAZOLE 40 MG TABLET (FP) PO SCH (22:22)
[2017-05-26] MEDS: ROSUVASTATIN CA 10 MG TABLET (FP) PO SCH (22:22)
[2017-05-26] MEDS: QUEtiapine FUMARATE 25 MG TABLET (FP) PO SCH (22:22)
[2017-05-26] MEDS: ZOLPIDEM TARTRATE 5 MG TABLET PO PRN (22:22)
[2017-05-27] MEDS: PIPERACILLIN/TAZOB 3.375 GM 50 ML IVPB SCH (02:22)
--- NOTE | 2017-05-27 09:03 | CONS ---
DATE OF CONSULTATION: 05/26/2017 REASON FOR CONSULTATION: Diverticulitis. REQUESTING PHYSICIAN: This is a consultation at the request of the emergency room physician. This is an emergency room consultation. Patient was subsequently admitted to the medical floor and being seen on the floor. BRIEF HISTORY: This is a 66-year-old female morbidly obese with multiple medical problems. She states she attempted a colonoscopy approximately 3 years ago and it was unable to be done due to poor prep. She went for a barium enema at that time which the patient reports was colitis. I have attempted to retrieve the study, but due to computer problems from the [facility] computer system I am unable to review the report at this time. The patient developed low abdominal pain approximately 6 days ago and felt this was secondary to a hernia. She was sent for an outpatient CAT scan which she had yesterday which surprisingly showed that she had acute diverticulitis, noncomplicated. This was in the sigmoid colon near her midline. Because of this, she was referred in to the emergency room where she was admitted for intravenous antibiotics and a surgical evaluation. She denies nausea, denies vomiting. She is requesting food. Overnight, she still has discomfort. PAST MEDICAL HISTORY: Significant for COPD, hypertension, hyperlipidemia, pneumonia, diabetes, and depression, and possible colitis per the patient's remembering of her x-ray report. PAST SURGICAL HISTORY: Includes a hysterectomy, breast benign biopsy, and an ankle surgery. SOCIAL HISTORY: Significant for quitting tobacco and quitting alcohol. FAMILY HISTORY: Significant for a father with lung cancer. ALLERGIES: She has no known drug allergies. REVIEW OF SYSTEMS: General: Denies fatigue or malaise. Cardiac: Denies chest pain or palpitations. Respiratory: Denies shortness of breath or wheeze. Gastrointestinal: As stated in the HPI. Denies diarrhea. Denies blood in her stool. Denies recent weight loss. Genitourinary: Denies dysuria. Musculoskeletal: Denies joint pain, joint swelling. Psychiatric: Denies anxiety, depression, or hearing voices. PHYSICAL EXAMINATION:General: This is a morbidly obese 66-year-old female in no distress. Vital Signs: She is afebrile and has been since admission. HEENT: Her head is normocephalic. Her sclerae are anicteric. Neck: Supple. Chest: Clear. Abdomen: Soft. It is obese which limits the sensitivity of her exam. She has a ventral hernia which is asymptomatic and reducible. She has a Pfannenstiel incision which is unremarkable. She has mild tenderness in the suprapubic region on deep palpation. She has no rebound or guarding. Extremities: Have no edema. LABORATORY: On review of her laboratory, white blood cell count is 7.7 which is down from 10.1. Her platelets were initially elevated at 457. Today, they are normal at 424. Her chemistries are unremarkable. IMAGING: On review of her imaging, the ER physician reports an acutely inflamed segment of sigmoid colon. There is no evidence of collection. There is no evidence of extraluminal air. The actual report again is not available due to current computer failure. ASSESSMENT: This is a 66-year-old female with a 6-day history of suprapubic abdominal pain with decreased appetite. CAT scan reportedly is consistent with acute diverticulitis. The patient states that she believes she was told she had colitis 3 years ago on a barium enema. She has not had a colonoscopy due to poor abdominal prep. At this point, the patient is nontoxic. I agree with admission. I agree with IV Zosyn to cover E. coli and other enteric as well as gram-negative related nell. Will start the patient on a clear liquid diet. I have explained to the patient that likely this is diverticulitis based on its location but cannot entirely rule out a malignancy. Patient understands this. I have offered her exploratory surgery to prove that it is not malignancy, but that unfortunately would require a colostomy. Patient declines this option and she is willing to take the risk that she may have a delay in diagnosis of malignancy. If medical management is successful which I expect it to be, she should have colonoscopy in approximately 6 weeks' time to reevaluate this area. Also, since this is her 1st admission for diverticulitis and it appears to be a noncomplicated attack, I would not offer her elective sigmoid colectomy in the future. Furthermore, her morbid obesity would increase the risk of any elective surgery. At this point, patient can likely be discharged in 2 to 3 days once her tenderness resolves. I would discharge her on a week of Augmentin 875 b.i.d. once she shows resolution of her tenderness. Obviously, if the patient deteriorates which would be manifested by fever, spreading of her pain, and worsening abdominal exam, she would require exploratory surgery with likely sigmoid colectomy and colostomy. Would recommend a GI evaluation at some point as she will require further colonoscopy. 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 Suárez, because she blames him for her poor prep. DO LEFTY MCCARTY/[id number]
[2017-05-27] MEDS: PANTOPRAZOLE 40 MG TABLET (FP) PO SCH (09:24)
[2017-05-27] MEDS: ATENOLOL 25 MG TABLET (FP) PO SCH (09:25)
[2017-05-27] MEDS: ACETAMINOPHEN 325 MG TABLET (FP) PO PRN (09:25)
[2017-05-27] MEDS: ASPIRIN COATED 81 MG TABLET.EC PO SCH (09:25)
--- NOTE | 2017-05-27 09:38 | CONS ---
INFECTIOUS DISEASE CONSULTATION DATE OF CONSULTATION: 05/26/2017 REASON FOR CONSULTATION: A 66-year-old female evaluated for acute diverticulitis. HISTORY OF PRESENT ILLNESS: The patient had presented to her outside provider with a 6-day history of lower abdominal pain. She had complained of pain involving the left lower quadrant and left suprapubic area, associated with some nausea but no vomiting. She reports having a soft liquid bowel movement prior to admission. She was referred to a surgeon for suspected umbilical hernia. A CAT scan of the abdomen and pelvis was performed and showed acute diverticulitis involving the rectosigmoid area. No perforation or abscess was noted. She was admitted to the hospital, seen in consultation by Surgery. She was empirically treated with Zosyn. No blood cultures were obtained. At the present time, she has no complaints of abdominal pain. She denies any nausea or vomiting. No fever or chills. PAST MEDICAL HISTORY: Positive for morbid obesity, COPD, congestive heart failure, diabetes mellitus, hyperlipidemia, hypertension, depression. PAST SURGICAL HISTORY: Status post hysterectomy, breast biopsy, and ankle surgery. ALLERGIES: No known allergies. MEDICATIONS: 1. Atenolol. 2. Aspirin. 3. Seroquel. 4. Crestor. 5. Ambien. SOCIAL HISTORY: Positive for tobacco use. SYSTEMS REVIEW: Neurologic: No loss of consciousness, seizure activity, or focal weakness. Cardiac: Negative chest pain or palpitations. Respiratory: Negative cough or sputum production. Gastrointestinal: As per HPI. Genitourinary: Negative for urinary tract infection. LABORATORY DATA: White count 7.7, hematocrit 37.5, platelet count 424. BUN 22, creatinine 0.9. Urinalysis: White cells 2-5. CAT scan of the abdomen and pelvis shows cholelithiasis, extensive inflammatory changes in the [id number] sigmoid colon consistent with acute diverticulitis. No abscess or perforation noted. PHYSICAL EXAMINATION: General: She is awake and alert. She is in no acute distress. Vital Signs: Temperature 98.2; blood pressure 122/60; pulse 80, regular; respirations 17 per minute. HEENT: Sclerae are anicteric. Heart: Sounds S1, S2. Lungs: Clear. Abdomen: Positive bowel sounds. Abdomen is obese, soft. There is mild left lower quadrant tenderness to palpation. No mass, rebound, or rigidity. Extremities: Positive for edema. IMPRESSION: 1. Acute uncomplicated sigmoid diverticulitis. 2. Possible sepsis secondary to diverticulitis. I will obtain blood cultures. Empiric antibiotic coverage with Zosyn 3.375 g IV piggyback every 8 hours on GI floor. Surgical followup. Will follow. Thank you for the kind referral. JCARLOS MCLAUGHLIN M.D. [id number]
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
[2017-05-27] MEDS: QUEtiapine FUMARATE 25 MG TABLET (FP) PO SCH (21:20)
[2017-05-27] MEDS: ZOLPIDEM TARTRATE 5 MG TABLET PO PRN (21:20)
[2017-05-27] MEDS: ROSUVASTATIN CA 10 MG TABLET (FP) PO SCH (21:25)
[2017-05-28] MEDS: PIPERACILLIN/TAZOB 3.375 GM 50 ML IVPB SCH ×4 (02:23→18:25)
[2017-05-28] MEDS: PANTOPRAZOLE 40 MG TABLET (FP) PO SCH (10:23)
[2017-05-28] MEDS: ATENOLOL 25 MG TABLET (FP) PO SCH (10:24)
[2017-05-28] MEDS: ASPIRIN COATED 81 MG TABLET.EC PO SCH (10:34)
[2017-05-28] MEDS: ACETAMINOPHEN 325 MG TABLET (FP) PO PRN (10:34)
[2017-05-28] MEDS: ZOLPIDEM TARTRATE 5 MG TABLET PO PRN (21:29)
[2017-05-28] MEDS: QUEtiapine FUMARATE 25 MG TABLET (FP) PO SCH (21:29)
[2017-05-28] MEDS: ROSUVASTATIN CA 10 MG TABLET (FP) PO SCH (21:30)
[2017-05-29] MEDS: PIPERACILLIN/TAZOB 3.375 GM 50 ML IVPB SCH ×2 (02:02→03:38)
[2017-05-29 06:18] VITALS: BP 124/62; PULSE 64; TEMP 98.3
--- NOTE | 2017-05-29 09:53 | PN ---
Progress Note, Physician History of Present Illness: Awake, alert No c/o abdominal pain Tolerated oatmeal No N/V + loose, non-bloody stool No fever/ chills Tolerating zosyn Blood c/s no growth - Current Medication List Current Medications: Active Medications Acetaminophen (Tylenol -) 975 mg PO Q6H PRN PRN Reason: FEVER OR PAIN Last Admin: 05/28/17 10:34 Dose: 975 mg Aspirin (Ecotrin -) 81 mg PO DAILY [facility] Last Admin: 05/28/17 10:34 Dose: 81 mg Atenolol (Tenormin -) 25 mg PO DAILY [facility] Last Admin: 05/28/17 10:24 Dose: 25 mg Piperacillin Sod/Tazobactam Sod (Zosyn 3.375gm Ivpb (Pre-Docked)) 50 mls @ 100 mls/hr IVPB Q8H-IV TITO PRN Reason: Protocol Last Admin: 05/29/17 03:38 Dose: Not Given Ibuprofen (Motrin -) 400 mg PO Q6H PRN PRN Reason: PAIN Pantoprazole Sodium (Protonix -) 40 mg PO DAILY [facility] Last Admin: 05/28/17 10:23 Dose: 40 mg Quetiapine Fumarate (Seroquel -) 12.5 mg PO HS [facility] Last Admin: 05/28/17 21:29 Dose: 12.5 mg Rosuvastatin Calcium (Crestor -) 10 mg PO HS [facility] Last Admin: 05/28/17 21:30 Dose: 10 mg Zolpidem Tartrate (Ambien -) 10 mg PO HS PRN PRN Reason: INSOMNIA Last Admin: 05/28/17 21:29 Dose: 10 mg - Objective Vital Signs: Vital Signs Temperature 98.3 F 05/29/17 06:16 Pulse Rate 64 05/29/17 06:16 Respiratory Rate 18 05/29/17 06:16 Blood Pressure 124/62 05/29/17 06:16 O2 Sat by Pulse Oximetry (%) 94 L 05/29/17 06:16 Constitutional: Yes: No Distress, Obese Eyes: Yes: Conjunctiva Clear Cardiovascular: Yes: Regular Rate and Rhythm, S1, S2 Respiratory: Yes: CTA Bilaterally Gastrointestinal: Yes: Normal Bowel Sounds, Soft, Abdomen, Obese. No: Tenderness Edema: Yes Assessment/Plan Acute, uncomplicated sigmoid diverticulitis Advance diet May substitute po Augmentin 875mg bid x 10d Outpatient GI follow up
[2017-05-29] MEDS: ATENOLOL 25 MG TABLET (FP) PO SCH (10:23)
[2017-05-29] MEDS: ASPIRIN COATED 81 MG TABLET.EC PO SCH (10:23)
[2017-05-29] MEDS: PANTOPRAZOLE 40 MG TABLET (FP) PO SCH (10:23)
--- NOTE | 2017-05-29 12:36 | PN ---
Progress Note (short form) - Note Progress Note: Patient seen and consult dictated. Patient with sigmoid diverticulitis currently improved on antibiotics; now on PO antibiotics and tolerating PO. No further abdominal pain and has normal WBC and no fever/chills. Have recommended patient remain on low residue diet x 3 weeks and will be happy to followup as outpatient.
[2017-05-29] MEDS ORDERED: AMOX TR/POT CLAV 875MG/125MG TABLETS (FP) PO SCH (17:30)
--- NOTE | 2017-05-30 08:31 | CONS ---
DATE OF CONSULTATION: 05/29/2017 REQUESTING PHYSICIAN: Clare Rodriguez MD REASON FOR CONSULTATION: I was asked by Dr. Rodriguez to evaluate this 66-year-old female admitted with acute diverticulitis. HISTORY OF PRESENT ILLNESS: The patient has a history of hypertension, obesity, COPD, cardiac disease, and depression. She presented with a several day history of left lower quadrant pain and had a CT scan of the abdomen showing acute diverticulitis in the rectosigmoid area. The patient has been on antibiotics and is clinically improved. She states that she had a normal colonoscopy in 1988, a colonoscopy 10 years ago done in [place] showing polyps, and an attempted colonoscopy [address] Suárez, which was incomplete for unclear reasons. She apparently had a subsequent barium enema which she believes may have shown some colitis. She was well up until the present admission with the left lower quadrant pain, and is clinically improved currently. She is status post hysterectomy in the past, ankle surgery and breast biopsy. MEDICATIONS: Her pre-hospital medications include atenolol, aspirin, Seroquel, Crestor, and Ambien. SOCIAL HISTORY: She states she quit smoking recently as well as alcohol use. PATIENTS HOSPITAL COURSE: Notable for treatment IV Zosyn, and she is currently on p.o. Augmentin and is tolerating p.o. soft diet. PHYSICAL EXAMINATION: General: She is a well-developed, obese female. HEENT: [place] conjunctiva. Lungs: Clear lungs. Cardiac: Regular rate and rhythm. . Abdomen: Soft abdomen. Normoactive bowel sounds. No specific tenderness or rebound. IMPRESSION: Patient with acute diverticulitis involving the rectosigmoid area. Clinically improved after intravenous antibiotics and currently on oral antibiotics, tolerating oral, and she appeared stable for discharge with outpatient followup. I have given the patient my office card with instructions to call for a followup appointment in 1-2 weeks and will be available to reevaluate as needed. JAYJAY GILLILAND M.D. [id number]
== END 2017-05-29 15:35 | disposition home or self-care (01) | DRG 392 ==
LOC: FER 15:57 → FM/S 17:14 → INTOOBSV 17:14 → UNDOADMOB 17:14 → FM/S 20:50 → OBSVTOIN 05-26 14:00
PROVIDERS: ADMIT Family Medicine; ATTEND Family Medicine
DX: K57.32 Diverticulitis of large intestine without perforation or abscess without bleeding (principal); Z68.42 Body mass index [BMI] 45.0-49.9, adult; I10 Essential (primary) hypertension; E78.5 Hyperlipidemia, unspecified; J44.9 Chronic obstructive pulmonary disease, unspecified; R73.03 Prediabetes; F32.9 Major depressive disorder, single episode, unspecified; K42.9 Umbilical hernia without obstruction or gangrene; G47.09 Other insomnia; E66.01 Morbid (severe) obesity due to excess calories; Z87.891 Personal history of nicotine dependence; Z90.710 Acquired absence of both cervix and uterus
CPT/HCPCS: 36415; 71010-TC; 80053; 81003; 81015; 85025; 85027; 87040; 93005; 99283-25; G0378

== ENCOUNTER 2017-10-08 12:20 | Observation (INO) | payer BC ==
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
[2017-10-08] MEDS ORDERED: morphine CARPU-JECT 4 MG/1 ML DISP.SYRIN IVPUSH ONE ×2 (12:56→15:12)
[2017-10-08] MEDS ORDERED: morphine SULFATE 4 MG/ML VIAL ONE ×2 (13:17→15:14)
[2017-10-08 13:24] LABS: BASOPHIL 0.5 % (0-2.0); MCH 28.6 pg (25.7-33.7); MCHC 33.3 g/dl (32.0-36.0); MEAN CELL VOLUME 85.8 fl (80-96); MEAN PLT VOLUME 8.5 fl (7.5-11.1); NEUTROPHILS 71.6 % (42.8-82.8); PLATELET COUNT 322 K/MM3 (134-434); RDW 14.1 % (11.6-15.6); WHITE BLOOD COUNT 8.3 K/mm3 (4.0-10.8)
[2017-10-08 13:43] LABS: ALBUMIN 3.4 g/dl (3.5-5.0); ALK PHOS 60 U/L (32-92); ANION GAP 6 (8-16); BILIRUBIN,TOTAL 0.3 mg/dl (0.2-1.0); CALCIUM 9.2 mg/dl (8.4-10.2); CO2 27 mmol/L (22-28); CREATININE 0.6 mg/dl (0.6-1.3); GLUCOSE,RANDOM 123 mg/dl (74-106); SGOT/AST 26 U/L (10-42); SGPT/ALT 20 U/L (10-40); TOT PROT 6.4 g/dl (6.4-8.3)
[2017-10-08] MEDS ORDERED: PIPERACIL/TAZOB 3.375 GM 3.375 GM/50 ML PREMIX IVPB ONE (16:24)
[2017-10-08] MEDS ORDERED: PIPERACILLIN/TAZOBACTAM 3.375 GM VIAL IVPB ONE (17:07)
[2017-10-08 18:32] VITALS: BMI 41.1
[2017-10-08 18:53] LABS: PH,URINE 5.5 (4.5-8); URINE APPEARANCE CLEAR; URINE BILIRUBIN NEGATIVE (NEGATIVE); URINE BLOOD NEGATIVE (NEGATIVE); URINE COLOR YELLOW; URINE GLUCOSE (UA) NEGATIVE (NEGATIVE); URINE KETONE NEGATIVE (NEGATIVE); URINE LEUK ESTERASE NEGATIVE (NEGATIVE); URINE NITRITE NEGATIVE (NEGATIVE); URINE PROTEIN NEGATIVE (NEGATIVE); URINE UROBILINOGEN 0.2 (0.2-1.0)
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
[2017-10-08] MEDS ORDERED: DEXTROSE 5%-0.45% SALINE 1,000 ML IV SCH (20:45)
[2017-10-08] MEDS: morphine SULFATE 4 MG/ML VIAL IVPUSH PRN (21:42)
[2017-10-08] MEDS ORDERED: ZOLPIDEM TARTRATE 5 MG TABLET PO ONE (23:30)
[2017-10-09] MEDS: DEXTROSE 5%-0.45% SALINE 1,000 ML IV SCH
[2017-10-09] MEDS ORDERED: QUEtiapine FUMARATE 25 MG TABLET (FP) PO ONE (00:09)
[2017-10-09] MEDS: PIPERACILLIN/TAZOB 3.375 GM/50 ML PRE-DOCKED IVPB SCH ×2 (01:26→10:12)
[2017-10-09 08:35] LABS: BASOPHIL 0.4 % (0-2.0); MCHC 33.4 g/dl (32.0-36.0); MEAN CELL VOLUME 86.9 fl (80-96); MEAN PLT VOLUME 8.8 fl (7.5-11.1); NEUTROPHILS 63.3 % (42.8-82.8); PLATELET COUNT 288 K/MM3 (134-434); RDW 13.9 % (11.6-15.6); WHITE BLOOD COUNT 8.4 K/mm3 (4.0-10.8)
[2017-10-09 08:50] LABS: ANION GAP 7 (8-16); CO2 29 mmol/L (22-28); CREATININE 0.8 mg/dl (0.6-1.3); GLUCOSE,RANDOM 110 mg/dl (74-106)
--- NOTE | 2017-10-09 09:36 | PN ---
Physical Exam: SUBJECTIVE: Patient seen and examined, denies any abdominal pain, reports feeling hungry OBJECTIVE: patient is a 66 y/o female with a past medical history of diverticulitis multiple hospital admissions (three admissions this years last admission, 09/30-10/05), HTN, HLD, COPD( no O2), Depression, Insomnia, and Severe Obesity. Patient was admitted from the emergency department to observation for abdominal pain Vital Signs Period Temp Pulse Resp BP Sys/Negron Pulse Ox Last 24 Hr 97.8 F-99.5 F 61-99 16-18 104-145/54-73 94-97 GENERAL: The patient is awake, alert, and fully oriented, in no acute distress. HEAD: Normal with no signs of trauma. EYES: PERRL, extraocular movements intact, sclera anicteric, conjunctiva clear. No ptosis. ENT: Ears normal, nares patent, oropharynx clear without exudates, moist mucous membranes. NECK: Trachea midline, full range of motion, supple. LUNGS: Breath sounds equal, clear to auscultation bilaterally, no wheezes, no crackles, no accessory muscle use. HEART: Regular rate and rhythm, S1, S2 without murmur, rub or gallop. ABDOMEN: Soft, nontender, mild left upper quadrant tenderness upon palpation. nondistended, hyperactive bowel sounds, no guarding, no rebound, no hepatosplenomegaly, no masses. EXTREMITIES: 2+ pulses, warm, well-perfused, no edema. NEUROLOGICAL: Cranial nerves II through XII grossly intact. Normal speech, gait not observed. PSYCH: Normal mood, normal affect. SKIN: Warm, dry, normal turgor, no rashes or lesions noted Laboratory Results - last 24 hr 10/08/17 10/08/17 10/08/17 13:10 13:10 13:10 WBC 8.3 D RBC 4.38 Hgb 12.5 D Hct 37.6 MCV 85.8 MCH 28.6 MCHC 33.3 RDW 14.1 Plt Count 322 MPV 8.5 Neutrophils % 71.6 D Lymphocytes % 20.4 D Monocytes % 5.5 Eosinophils % 2.0 Basophils % 0.5 Sodium 135 L Potassium 3.7 Chloride 102 Carbon Dioxide 27 Anion Gap 6 L BUN 11 D Creatinine 0.6 Creat Clearance w eGFR > 60 Random Glucose 123 H D Lactic Acid 0.9 Calcium 9.2 Total Bilirubin 0.3 D AST 26 D ALT 20 D Alkaline Phosphatase 60 Total Protein 6.4 Albumin 3.4 L Urine Color Urine Appearance Urine pH Ur Specific [place] Urine Protein Urine Glucose (UA) Urine Ketones Urine Blood Urine Nitrite Urine Bilirubin Urine Urobilinogen Ur Leukocyte Esterase 10/08/17 10/09/17 10/09/17 18:33 07:33 07:33 WBC 8.4 RBC 4.06 Hgb 11.8 Hct 35.3 MCV 86.9 MCH 29.0 MCHC 33.4 RDW 13.9 Plt Count 288 MPV 8.8 Neutrophils % 63.3 Lymphocytes % 26.6 D Monocytes % 8.7 Eosinophils % 1.0 Basophils % 0.4 Sodium 137 Potassium 4.0 Chloride 101 Carbon Dioxide 29 H Anion Gap 7 L BUN 12 Creatinine 0.8 D Creat Clearance w eGFR Random Glucose 110 H Lactic Acid Calcium 9.0 Total Bilirubin AST ALT Alkaline Phosphatase Total Protein Albumin Urine Color Yellow Urine Appearance Clear Urine pH 5.5 Ur Specific [place] 1.025 Urine Protein Negative Urine Glucose (UA) Negative Urine Ketones Negative Urine Blood Negative Urine Nitrite Negative Urine Bilirubin Negative Urine Urobilinogen 0.2 Ur Leukocyte Esterase Negative Active Medications Generic Name Dose Route Start Last Admin Trade Name Freq PRN Reason Stop Dose Admin Atenolol 25 mg 10/09/17 10:00 Tenormin - PO DAILY TITO Dextrose/Sodium Chloride 1,000 mls @ 42 mls/hr 10/08/17 23:31 10/09/17 00:00 D5-1/2ns - IV 42 mls/hr ASDIR TITO Administration Morphine Sulfate 4 mg 10/08/17 20:52 10/08/17 21:42 Morphine Sulfate IVPUSH 4 mg Q6H PRN Administration PAIN Piperacillin Sod/Tazobactam Sod 3.375 gm 10/09/17 18:00 Zosyn 3.375gm Ivpb (Pre-Docked) IVPB Q8H-IV TITO Piperacillin Sod/Tazobactam Sod 3.375 gm 10/09/17 02:00 10/09/17 01:26 Zosyn 3.375gm Ivpb (Pre-Docked) IVPB 10/09/17 10:01 3.375 gm Q8H-IV TITO Administration Quetiapine Fumarate 12.5 mg 10/09/17 22:00 Seroquel - PO HS TITO Zolpidem Tartrate 10 mg 10/09/17 08:31 Ambien - PO HS PRN INSOMNIA ASSESSMENT/PLAN: 1. GI: Intractable Abdominal Pain - Likely secondary to Chronic Diverticulitis, recent admission, 09/30-10/05, discharged on augumentin, continue zosyn, appreciate ID input for antibiotic clearance - last CT of abdomen 10/01/17, consistent with acute diverticulitis with perforation, no drainable abscess. - no fever, no leukocytosis - surgery, Dr Dexter consulted and following - appreciate, GI input, Dr Valera 2) cardiovascular hypertension - continue atenolol, b/p at goal hyperlipidemia - continue atorvastin 3) pulmonary copd - no acute excerbation at this time, continue 4) psych Depression - Continue Seroquel FEN - D51/2NS@42ml/hr - Replete lytes prn - clear liquid diet, then advance as tolerated 8. DVT Prophylaxis - OOB - SCDs - Consider AC if LOS > 48 hrs Code Status: Full Code Dispo: Observation Visit type - Emergency Visit Emergency Visit: Yes ED Registration Date: 10/08/17 Care time: The patient presented to the Emergency Department on the above date and was hospitalized for further evaluation of their emergent condition. - New Patient This patient is new to me today: Yes Date on this admission: 10/09/17 - Critical Care Critical Care patient: No
[2017-10-09] MEDS: ATENOLOL 25 MG TABLET (FP) PO SCH (10:12)
--- NOTE | 2017-10-09 11:24 | PN ---
Progress Note (short form) - Note Progress Note: surgery pt seen and examined. multiple bouts of recurrent complicated diverticulitis. just discharged monday. returns for now resolved abd pain without fever or leukocytosis. abd-soft,minimal lower abd tenderness Laboratory Tests 09/01/17 09/02/17 09/03/17 16:00 07:15 07:00 WBC 13.4 H D 7.2 D 6.6 09/04/17 09/05/17 09/06/17 07:30 07:32 07:35 WBC 6.0 9.1 D 5.2 D 09/08/17 09/30/17 10/01/17 13:55 15:00 06:45 WBC 6.5 11.0 H D 6.3 D 10/03/17 10/08/17 10/09/17 08:10 13:10 07:33 WBC 5.1 8.3 D 8.4 Plan- unclear if this is really a new flare up. wbc wnl and no fever. would start liquids. cont iv abx. likey d/c home wed if remains well. wbc hasnt been elevated since 09/30. Pt needs surgery but surgery now would likley require a colostomy. Would proceed with plans of colonoscopy in October and elective resection to follow. would not push back the calendar based on this admission. would not repeat ct if remains well.
[2017-10-09] MEDS ORDERED: ALBUTEROL SO4 2.5/IPRATROPIUM 0.5 INH SOL 3 ML VIAL.NEB. NEB PRN (12:38)
[2017-10-09] MEDS: LACTOBACILLUS ACIDOPHILUS 1 EACH TAB (FP) PO SCH (13:02)
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
--- NOTE | 2017-10-09 17:07 | EKG ---
Test Reason : Blood Pressure : / mmHG Vent. Rate : 067 BPM Atrial Rate : 067 BPM P-R Int : 242 ms QRS Dur : 080 ms QT Int : 432 ms P-R-T Axes : -04 019 052 degrees QTc Int : 456 ms SINUS RHYTHM WITH 1ST DEGREE A-V BLOCK NONSPECIFIC T WAVE ABNORMALITY WHEN COMPARED WITH ECG OF 30-SEP-2017 19:06, COMPARED TO EKG NO SIGNIFICANT CHANGE IS FOUND Confirmed by MD CRISTOFER, ANDERS ([id number]) on 10/09/2017 5:07:49 PM Referred By: RENE Confirmed By:ANDERS CLEVELAND MD
[2017-10-09] MEDS ORDERED: PIPERACILLIN/TAZOB 3.375 GM/50 ML PRE-DOCKED IVPB SCH (18:00)
[2017-10-09] MEDS ORDERED: PIPERACILLIN/TAZOB 3.375 GM 3.375 GM in DEXTROSE 5%-WATER - 50 ML IVPB SCH (18:30)
--- NOTE | 2017-10-09 18:49 | PN ---
Progress Note (short form) - Note Progress Note: ID Consult dictated
[2017-10-09] MEDS: PIPERACILLIN/TAZOB 3.375 GM 3.375 GM/50 ML BAG IVPB SCH (19:15)
[2017-10-09] MEDS: morphine SULFATE 4 MG/ML VIAL IVPUSH PRN (20:53)
[2017-10-09] MEDS: QUEtiapine FUMARATE 25 MG TABLET (FP) PO SCH (21:31)
[2017-10-09] MEDS: ZOLPIDEM TARTRATE 5 MG TABLET PO PRN (21:31)
[2017-10-10] MEDS: PIPERACILLIN/TAZOB 3.375 GM 3.375 GM/50 ML BAG IVPB SCH ×3 (01:35→17:54)
[2017-10-10] MEDS: DEXTROSE 5%-0.45% SALINE 1,000 ML IV SCH (03:31)
[2017-10-10] MEDS: ATENOLOL 25 MG TABLET (FP) PO SCH (09:09)
[2017-10-10] MEDS: LACTOBACILLUS ACIDOPHILUS 1 EACH TAB (FP) PO SCH (09:10)
[2017-10-10] MEDS: LIDOCAINE 5% TOPICAL PATCH TP SCH (10:23)
--- NOTE | 2017-10-10 11:32 | PN ---
Physical Exam: SUBJECTIVE: Patient seen and examined, reports feeling well, tolerating full liquid diet. OBJECTIVE:patient is a 66 y/o female with a past medical history of diverticulitis multiple hospital admissions (three admissions this year last admission, 09/30-10/05), HTN, HLD, COPD( no O2), Depression, Insomnia, and Severe Obesity. Patient was admitted from the emergency department to observation for abdominal pain Vital Signs Period Temp Pulse Resp BP Sys/Negron Pulse Ox Last 24 Hr 97.8 F-98.3 F 69-81 17-18 91-106/50-56 92-97 GENERAL: The patient is awake, alert, and fully oriented, in no acute distress. HEAD: Normal with no signs of trauma. EYES: PERRL, extraocular movements intact, sclera anicteric, conjunctiva clear. No ptosis. ENT: Ears normal, nares patent, oropharynx clear without exudates, moist mucous membranes. NECK: Trachea midline, full range of motion, supple. LUNGS: Breath sounds equal, clear to auscultation bilaterally, no wheezes, no crackles, no accessory muscle use. HEART: Regular rate and rhythm, S1, S2 without murmur, rub or gallop. ABDOMEN: Soft, miminal left lower quadrant tenderness with deep palpation. nondistended, normoactive bowel sounds, no guarding, no rebound, no hepatosplenomegaly, no masses. EXTREMITIES: 2+ pulses, warm, well-perfused, no edema. NEUROLOGICAL: Cranial nerves II through XII grossly intact. Normal speech, gait not observed. PSYCH: Normal mood, normal affect. SKIN: Warm, dry, normal turgor, no rashes or lesions noted Active Medications Generic Name Dose Route Start Last Admin Trade Name Freq PRN Reason Stop Dose Admin Albuterol/Ipratropium 1 amp 10/09/17 12:38 Duoneb - NEB Q6H PRN SHORTNESS OF BREATH Atenolol 25 mg 10/09/17 10:00 10/10/17 09:09 Tenormin - PO 25 mg DAILY TITO Administration Dextrose/Sodium Chloride 1,000 mls @ 42 mls/hr 10/08/17 23:31 10/10/17 03:31 D5-1/2ns - IV 42 mls/hr ASDIR TITO Administration Piperacillin Sod/Tazobactam Sod 3.375 gm in 50 mls @ 100 mls/hr 10/09/17 19: 15 10/10/17 09:09 Zosyn 3.375gm Ivpb (Pre-Docked) IVPB 100 mls/hr Q8H-IV TITO Administration Protocol Lactobacillus Acidophilus 1 tab 10/09/17 12:15 10/10/17 09:10 Bacid - PO 1 tab DAILY TITO Administration Lidocaine 1 patch 10/10/17 10:00 10/10/17 10:23 Lidoderm Patch - TP 1 patch DAILY TITO Administration Miscellaneous 1 each 10/10/17 22:00 Lidoderm Patch Removal MC DAILY@2200 TITO Morphine Sulfate 4 mg 10/08/17 20:52 10/09/17 20:53 Morphine Sulfate IVPUSH 4 mg Q6H PRN Administration PAIN Quetiapine Fumarate 12.5 mg 10/09/17 22:00 10/09/17 21:31 Seroquel - PO 12.5 mg HS TITO Administration Zolpidem Tartrate 10 mg 10/09/17 08:31 10/09/17 21:31 Ambien - PO 10 mg HS PRN Administration INSOMNIA ASSESSMENT/PLAN: 1. GI: Intractable Abdominal Pain - Likely secondary to Chronic Diverticulitis, recent admission, 09/30-10/05, continue zosyn will discharge on augmentin - last CT of abdomen 10/01/17, consistent with acute diverticulitis with perforation, no drainable abscess. - no fever, no leukocytosis - surgery, Dr Dexter consulted and following - appreciate, GI input, Dr Valera - ID, Dr Gibson consulted and following 2) cardiovascular hypertension - continue atenolol, b/p at goal hyperlipidemia - continue atorvastin 3) pulmonary copd - no acute excerbation at this time, continue 4) psych Depression - Continue Seroquel FEN - D51/2NS@42ml/hr - Replete lytes prn - full liquid diet will advance to soft diet 8. DVT Prophylaxis - OOB - SCDs - Consider AC if LOS > 48 hrs Code Status: Full Code Dispo: Observation Visit type - Emergency Visit Emergency Visit: Yes ED Registration Date: 10/08/17 Care time: The patient presented to the Emergency Department on the above date and was hospitalized for further evaluation of their emergent condition. - New Patient This patient is new to me today: No - Critical Care Critical Care patient: No - Discharge Referral Referred to [facility] No
[2017-10-10 11:36] LABS: BASOPHIL 0.5 % (0-2.0); EOSINOPHIL 2.3 % (0-4.5); MCH 28.6 pg (25.7-33.7); MCHC 32.9 g/dl (32.0-36.0); MEAN PLT VOLUME 8.8 fl (7.5-11.1); PLATELET COUNT 301 K/MM3 (134-434); RDW 14.3 % (11.6-15.6); WHITE BLOOD COUNT 6.7 K/mm3 (4.0-10.8)
[2017-10-10] MEDS: QUEtiapine FUMARATE 25 MG TABLET (FP) PO SCH (21:33)
[2017-10-10] MEDS: ZOLPIDEM TARTRATE 5 MG TABLET PO PRN (21:34)
[2017-10-10] MEDS ORDERED: LIDOCAINE PATCH REMOVAL MC SCH (22:00)
[2017-10-11] MEDS: DEXTROSE 5%-0.45% SALINE 1,000 ML IV SCH (04:33)
[2017-10-11] MEDS: PIPERACILLIN/TAZOB 3.375 GM 3.375 GM/50 ML BAG IVPB SCH ×2 (04:33→09:19)
[2017-10-11 06:20] VITALS: BP 126/66; PULSE 74; TEMP 97.8
[2017-10-11] MEDS: ATENOLOL 25 MG TABLET (FP) PO SCH (09:19)
[2017-10-11] MEDS: LACTOBACILLUS ACIDOPHILUS 1 EACH TAB (FP) PO SCH (09:19)
[2017-10-11] MEDS: LIDOCAINE 5% TOPICAL PATCH TP SCH (09:19)
--- NOTE | 2017-10-11 09:19 | DS ---
Physical Exam: SUBJECTIVE: Patient seen and examined, feeling better, tolerating soft diet OBJECTIVE: Patient is a 66 y/o woman with a significant medical history of Complicated Diverticulitis multiple hospital admissions- 09/30-10/05, HTN, HLD, COPD( no O2), Depression, Insomnia, Severe Obesity. Who presents to the ED with lower abdominal pain x today. Patient describes the pain as "dull, nagging ache", which radiates to RLQ. She reports having 4 soft BMs today. Patient reports taking her Augmentin daily not taking today's dose secondary to the abdominal pain. Patient denies fever, chills, cough, dizziness, TY, SOB, CP, N/V/D, constipation, dysuria. Vital Signs Period Temp Pulse Resp BP Sys/Negron Pulse Ox Last 24 Hr 97.7 F-98.4 F 62-74 18-19 105-126/51-66 91-96 PHYSICAL EXAM GENERAL: The patient is awake, alert, and fully oriented, in no acute distress. HEAD: Normal with no signs of trauma. EYES: PERRL, extraocular movements intact, sclera anicteric, conjunctiva clear. ENT: Ears normal, nares patent, oropharynx clear without exudates, moist mucous membranes. NECK: Trachea midline, full range of motion, supple. LUNGS: Breath sounds equal, clear to auscultation bilaterally, no wheezes, no crackles, no accessory muscle use. HEART: Regular rate and rhythm, S1, S2 without murmur, rub or gallop. ABDOMEN: Soft, nontender, nondistended, normoactive bowel sounds, no guarding, no rebound, no hepatosplenomegaly, no masses. EXTREMITIES: 2+ pulses, warm, well-perfused, no edema. NEUROLOGICAL: Cranial nerves II through XII grossly intact. Normal speech, gait not observed. PSYCH: Normal mood, normal affect. SKIN: Warm, dry, normal turgor, no rashes or lesions noted. LABS Laboratory Results - last 24 hr 10/10/17 11:00 WBC 6.7 RBC 4.14 Hgb 11.8 Hct 36.0 MCV 87.0 MCH 28.6 MCHC 32.9 RDW 14.3 Plt Count 301 MPV 8.8 Neutrophils % 61.0 Lymphocytes % 28.5 Monocytes % 7.7 Eosinophils % 2.3 D Basophils % 0.5 CMP Sodium 137 mmol/L (136-145) 10/09/17 07:33 Potassium 4.0 mmol/L (3.5-5.1) 10/09/17 07:33 Chloride 101 mmol/L (98-107) 10/09/17 07:33 Carbon Dioxide 29 mmol/L (22-28) H 10/09/17 07:33 Anion Gap 7 (8-16) L 10/09/17 07:33 BUN 12 mg/dl (7-18) 10/09/17 07:33 Creatinine 0.8 mg/dl (0.6-1.3) D 10/09/17 07:33 Creat Clearance w eGFR > 60 (>60) 10/08/17 13:10 Random Glucose 110 mg/dl (74-106) H 10/09/17 07:33 Lactic Acid 0.9 mmol/L (0.4-2.0) 10/08/17 13:10 Calcium 9.0 mg/dl (8.4-10.2) 10/09/17 07:33 Total Bilirubin 0.3 mg/dl (0.2-1.0) D 10/08/17 13:10 AST 26 U/L (10-42) D 10/08/17 13:10 ALT 20 U/L (10-40) D 10/08/17 13:10 Alkaline Phosphatase 60 U/L (32-92) 10/08/17 13:10 Total Protein 6.4 g/dl (6.4-8.3) 10/08/17 13:10 Albumin 3.4 g/dl (3.5-5.0) L 10/08/17 13:10 HOSPITAL COURSE: * Intractable Abdominal Pain, likely secondary to Chronic Diverticulitis, recent admission, 09/30-10/05, treated with zosyn (10/08- ), last CT of abdomen 10/01/17, consistent with acute diverticulitis with perforation, no drainable abscess. no fever, no leukocytosis was noted throughout admission. surgery, Dr Dexter was consulted, Dr Valera, GI, was consulted. ID, Dr. Gibson consulted and followed * past medical history of hypertension, atenolol was continued, b/p at goal PLAN - discharge home, 7 days of augmentin - strict follow up with GI, Dr Chavez for colonoscopy Date of Admission:10/08/17 Date of Discharge: 10/11/17 Minutes to complete discharge: 45 Discharge Summary Reason For Visit: DIVERTICULITIS OF COLON Current Active Problems Diverticulitis of colon (Acute) Diverticulosis (Acute) Condition: Good - Instructions Referrals: Clare Rodriguez MD [Primary Care Provider] - - Home Medications Comprehensive Discharge Medication List: Ambulatory Orders Atenolol [Tenormin -] 25 mg PO DAILY 04/19/13 Quetiapine Fumarate [Seroquel -] 12.5 mg PO HS 03/01/15 Rosuvastatin Calcium [Crestor] 10 mg PO HS 03/01/15 Zolpidem Tartrate [Ambien] 10 mg PO HS PRN #7 tablet MDD 1 12/02/16 Acetaminophen [Tylenol .Regular Strength -] 975 mg PO Q6H PRN #0 tablet Lactobacillus Acidophilus [Bacid -] 1 tab PO BID #60 tab 09/07/17 Amoxicillin/Potassium Clav [Augmentin 875-125 Tablet] 1 each PO BID #14 tablet 10/04/17 This patient is new to me today: No Emergency Visit: Yes ED Registration Date: 10/08/17 Care time: The patient presented to the Emergency Department on the above date and was hospitalized for further evaluation of their emergent condition. Critical Care patient: No - Discharge Referral Referred to [facility] No
[2017-10-11] MEDS: morphine SULFATE 4 MG/ML VIAL IVPUSH PRN (11:44)
== END 2017-10-11 15:00 | disposition home or self-care (01) ==
LOC: FER 12:20 → FM/S 17:55
PROVIDERS: ADMIT Hospitalist; ATTEND Nurse Practitioner Family
DX: K57.32 Diverticulitis of large intestine without perforation or abscess without bleeding (principal); K57.30 Diverticulosis of large intestine without perforation or abscess without bleeding; I10 Essential (primary) hypertension; E78.00 Pure hypercholesterolemia, unspecified; J44.9 Chronic obstructive pulmonary disease, unspecified; F32.9 Major depressive disorder, single episode, unspecified; G47.00 Insomnia, unspecified; E66.01 Morbid (severe) obesity due to excess calories; Z68.41 Body mass index [BMI] 40.0-44.9, adult
CPT/HCPCS: 36415; 80048; 80053; 81003; 83605; 85025; 93005; 99284-25; G0378

== ENCOUNTER 2017-10-18 11:54 | Emergency (ER) | payer BC ==
[2017-10-18 12:00] VITALS: BP 133/77; PULSE 70; TEMP 98.4; BMI 41.6
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
[2017-10-18] MEDS ORDERED: SODIUM CHLORIDE 500 ML IV STA (12:31)
[2017-10-18] MEDS ORDERED: KETOROLAC TROMETHAMINE 30 MG/1 ML VIAL IVPUSH ONE (12:31)
[2017-10-18 12:44] LABS: BASO % 0.8 % (0-2.0); EOS % 3.1 % (0-4.5); MCH 28.3 pg (25.7-33.7); MCHC 32.9 g/dl (32.0-36.0); MEAN CELL VOLUME 86.1 fl (80-96); MEAN PLT VOLUME 8.6 fl (7.5-11.1); NEUT % 54.5 % (42.8-82.8); PLATELET COUNT 483 K/MM3 (134-434); RDW 14.2 % (11.6-15.6); WHITE BLOOD COUNT 6.6 K/mm3 (4.0-10.8)
[2017-10-18] MEDS ORDERED: KETOROLAC TROMETHAMINE 30 MG/1 ML VIAL ONE (12:45)
[2017-10-18 13:00] LABS: PH,URINE 5.5 (4.5-8); URINE APPEARANCE Clear; URINE BILIRUBIN 1+ (NEGATIVE); URINE BLOOD Negative (NEGATIVE); URINE GLUCOSE (UA) Negative (NEGATIVE); URINE KETONE Negative (NEGATIVE); URINE LEUK ESTERASE Negative (NEGATIVE); URINE NITRITE Negative (NEGATIVE); URINE UROBILINOGEN 0.2 (0.2-1.0)
[2017-10-18 13:00] LABS: ALBUMIN 3.6 g/dl (3.5-5.0); ALK PHOS 65 U/L (32-92); ANION GAP 10 (8-16); BILIRUBIN,TOTAL 0.5 mg/dl (0.2-1.0); CALCIUM 9.5 mg/dl (8.4-10.2); CO2 24 mmol/L (22-28); CREATININE 0.6 mg/dl (0.6-1.3); GLUCOSE,RANDOM 131 mg/dl (74-106); SGOT/AST 17 U/L (10-42); SGPT/ALT 10 U/L (10-40); TOT PROT 6.8 g/dl (6.4-8.3)
[2017-10-18 13:01] LABS: URINE COLOR YELLOW; URINE PROTEIN 1+ (NEGATIVE)
[2017-10-18] MEDS ORDERED: ONDANSETRON 4 MG/2 ML VIAL ONE (13:13)
[2017-10-18] MEDS ORDERED: morphine SULFATE 4 MG/ML VIAL ONE ×2 (13:13→14:16)
[2017-10-18] MEDS ORDERED: morphine CARPU-JECT 4 MG/1 ML DISP.SYRIN IVPUSH ONE ×2 (13:22→14:11)
[2017-10-18] MEDS ORDERED: ONDANSETRON 4 MG/2 ML VIAL IVPB ONE (13:23)
[2017-10-18] MEDS ORDERED: AMPICILLIN NA/SULBACTAM NA 1.5 GM in SODIUM CHLORIDE 100 ML IVPB ONE (13:23)
[2017-10-18] MEDS ORDERED: LIDOCAINE 5% TOPICAL PATCH TP ONE (13:37)
[2017-10-18] MEDS ORDERED: AMPICILLIN NA/SULBACTAM NA 1.5 GM VIAL ONE (13:39)
[2017-10-18] MEDS ORDERED: morphine CARPU-JECT 2 MG/1 ML DISP.SYRIN IVPUSH ONE (15:38)
[2017-10-18 17:45] LABS: URINE RBC 0-2 /hpf (0-3); URINE WBC 0-1 (0-5)
[2017-10-18] MEDS ORDERED: LIDOCAINE PATCH REMOVAL MC SCH (22:00)
== END 2017-10-18 17:27 | disposition home or self-care (01) ==
LOC: FER 11:54
PROC: 3E033NZ Introduction of Analgesics, Hypnotics, Sedatives into Peripheral Vein, Percutaneous Approach (ICD-10-PCS; principal; 2017-10-18)
PROC: 3E033GC Introduction of Other Therapeutic Substance into Peripheral Vein, Percutaneous Approach (ICD-10-PCS; 2017-10-18)
PROC: 3E0333Z Introduction of Anti-inflammatory into Peripheral Vein, Percutaneous Approach (ICD-10-PCS; 2017-10-18)
PROC: 3E03329 Introduction of Other Anti-infective into Peripheral Vein, Percutaneous Approach (ICD-10-PCS; 2017-10-18)
PROC: 3E0337Z Introduction of Electrolytic and Water Balance Substance into Peripheral Vein, Percutaneous Approach (ICD-10-PCS; 2017-10-18)
DX: R10.9 Unspecified abdominal pain (principal); Z87.891 Personal history of nicotine dependence; F32.9 Major depressive disorder, single episode, unspecified
CPT/HCPCS: 36415; 80053; 81003; 81015; 83605; 85025; 87040; 99282-25

== ENCOUNTER 2017-11-11 15:30 | Observation (INO) | payer BC ==
[2017-11-11 16:05] VITALS: BMI 41.6
[2017-11-11] MEDS ORDERED: SODIUM CHLORIDE 1,000 ML IV STA (17:15)
[2017-11-11] MEDS ORDERED: morphine CARPU-JECT 8 MG/1 ML DISP.SYRIN IVPUSH ONE (17:23)
[2017-11-11] MEDS ORDERED: morphine SULFATE 4 MG/ML VIAL ONE ×3 (17:24→19:08)
[2017-11-11 17:37] LABS: URINE APPEARANCE Clear; URINE BILIRUBIN 2+ (NEGATIVE); URINE BLOOD Negative (NEGATIVE); URINE COLOR YELLOW; URINE GLUCOSE (UA) Negative (NEGATIVE); URINE KETONE 1+ (NEGATIVE); URINE NITRITE Negative (NEGATIVE); URINE PROTEIN 1+ (NEGATIVE); URINE UROBILINOGEN 0.2 (0.2-1.0)
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
[2017-11-11 17:47] LABS: EOS % 0.8 % (0-4.5); HEMATOCRIT 39.3 % (32.4-45.2); LYMPH % 11.8 % (8-40); MCH 28.6 pg (25.7-33.7); MEAN CELL VOLUME 86.8 fl (80-96); MONO % 5.3 % (3.8-10.2); NEUT % 82.1 % (42.8-82.8); PLATELET COUNT 452 K/MM3 (134-434); RBC 4.53 M/mm3 (3.60-5.2); RDW 13.8 % (11.6-15.6); WHITE BLOOD COUNT 14.1 K/mm3 (4.0-10.8)
[2017-11-11 17:57] LABS: ALBUMIN 3.7 g/dl (3.5-5.0); ALK PHOS 66 U/L (32-92); ANION GAP 8 (8-16); BILIRUBIN,TOTAL 0.3 mg/dl (0.2-1.0); BLOOD UREA NITROGEN 16 mg/dl (7-18); CALCIUM 9.2 mg/dl (8.4-10.2); CHLORIDE 105 mmol/L (98-107); CO2 24 mmol/L (22-28); CREATININE 0.6 mg/dl (0.6-1.3); GLUCOSE,RANDOM 113 mg/dl (74-106); LIPASE 20 U/L (22-51); SGOT/AST 17 U/L (10-42); SGPT/ALT 11 U/L (10-40); SODIUM 137 mmol/L (136-145); TOT PROT 6.7 g/dl (6.4-8.3)
[2017-11-11 18:01] LABS: CALCIUM OXALATE CRYSTALS MODERATE /hpf (NONE SEEN); URINE MUCUS 2+; URINE RBC 0-3 /hpf (0-3)
[2017-11-11] MEDS ORDERED: morphine SULFATE 4 MG/ML VIAL IVPUSH ONE ×2 (18:26→23:50)
[2017-11-11] MEDS ORDERED: METRONIDAZOLE 500 MG PREMIXED 500 MG/100 ML MG IVPB ONE ×2 (18:53→19:08)
[2017-11-11] MEDS ORDERED: LEVOFLOXACIN 500 MG IVPB 500 MG/100 ML BAG IVPB ONE ×2 (18:53→19:08)
[2017-11-11] MEDS ORDERED: morphine CARPU-JECT 4 MG/1 ML DISP.SYRIN IVPUSH ONE (19:06)
[2017-11-11] MEDS ORDERED: ONDANSETRON 4 MG/2 ML VIAL IVPB ONE (19:21)
[2017-11-11] MEDS ORDERED: ONDANSETRON 4 MG/2 ML VIAL ONE (19:44)
[2017-11-11] MEDS: SODIUM CHLORIDE 1,000 ML IV SCH ×2 (19:51→21:57)
[2017-11-11] MEDS ORDERED: ACETAMINOPHEN 1000 MG/100 ML VIAL (NON FORMULARY) IVPB ONE (19:51)
[2017-11-11] MEDS ORDERED: ACETAMINOPHEN INJECTION 100 ML IVPB ONE (19:52)
[2017-11-11] MEDS ORDERED: ONDANSETRON 4 MG/2 ML VIAL IVPB PRN (20:22)
[2017-11-11] MEDS ORDERED: ACETAMINOPHEN 325 MG TABLET (FP) PO PRN (20:22)
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
[2017-11-11] MEDS ORDERED: ALBUTEROL SO4 2.5/IPRATROPIUM 0.5 INH SOL 3 ML VIAL.NEB. NEB PRN (20:36)
[2017-11-11] MEDS: ROSUVASTATIN CA 10 MG TABLET (FP) PO SCH (21:57)
[2017-11-11] MEDS: QUEtiapine FUMARATE 25 MG TABLET (FP) PO SCH (21:57)
[2017-11-11] MEDS ORDERED: ZOLPIDEM TARTRATE 5 MG TABLET PO PRN (22:06)
[2017-11-11] MEDS: morphine CARPU-JECT 2 MG/1 ML DISP.SYRIN IVPB PRN (22:21)
[2017-11-11] MEDS: ZOLPIDEM TARTRATE 5 MG TABLET PO PRN (22:28)
[2017-11-12] MEDS ORDERED: HYDROmorphone HCL CARPU-JECT 1 MG/1 ML DISP.SYRIN IVPB ONE (00:47)
[2017-11-12] MEDS ORDERED: ACETAMINOPHEN 1000 MG/100 ML VIAL (NON FORMULARY) IVPB ONE (00:48)
[2017-11-12] MEDS: METRONIDAZOLE 500 MG PREMIXED 500 MG/100 ML MG IVPB SCH ×3 (01:59→18:08)
[2017-11-12] MEDS: HEPARIN NA (PORCINE) 5,000 UNITS/ML 1ML VIAL SQ SCH ×3 (06:18→21:07)
[2017-11-12] MEDS: morphine CARPU-JECT 2 MG/1 ML DISP.SYRIN IVPB PRN ×3 (07:45→21:43)
[2017-11-12 08:28] LABS: INR 1.27 (0.82-1.09); PROTHROMBIN TIME (PATIENT) 14.2 SEC (10.2-13.0)
[2017-11-12 08:33] LABS: BASO % 0.1 % (0-2.0); EOS % 0.8 % (0-4.5); HEMATOCRIT 33.7 % (32.4-45.2); HEMOGLOBIN 11.5 GM/dl (10.7-15.3); LYMPH % 14.2 % (8-40); MCHC 34.2 g/dl (32.0-36.0); MEAN CELL VOLUME 87.7 fl (80-96); MEAN PLT VOLUME 8.6 fl (7.5-11.1); MONO % 7.7 % (3.8-10.2); NEUT % 77.2 % (42.8-82.8); PLATELET COUNT 309 K/MM3 (134-434); RBC 3.84 M/mm3 (3.60-5.2); RDW 13.9 % (11.6-15.6); WHITE BLOOD COUNT 10.8 K/mm3 (4.0-10.8)
[2017-11-12 08:52] LABS: ALBUMIN 2.9 g/dl (3.5-5.0); ALK PHOS 57 U/L (32-92); ANION GAP 6 (8-16); BILIRUBIN,TOTAL 0.8 mg/dl (0.2-1.0); BLOOD UREA NITROGEN 12 mg/dl (7-18); CALCIUM 8.7 mg/dl (8.4-10.2); CHLORIDE 101 mmol/L (98-107); CO2 27 mmol/L (22-28); CREATININE 0.6 mg/dl (0.6-1.3); GLUCOSE,RANDOM 118 mg/dl (74-106); POTASSIUM 4.7 mmol/L (3.5-5.1); SGOT/AST 14 U/L (10-42); SGPT/ALT 8 U/L (10-40); SODIUM 134 mmol/L (136-145); TOT PROT 5.5 g/dl (6.4-8.3)
[2017-11-12] MEDS: LEVOFLOXACIN 500 MG IVPB 500 MG/100 ML BAG IVPB SCH (09:41)
[2017-11-12] MEDS: LACTOBACILLUS ACIDOPHILUS 1 EACH TAB (FP) PO SCH (09:42)
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
[2017-11-12] MEDS: ATENOLOL 25 MG TABLET (FP) PO SCH (11:38)
[2017-11-12] MEDS: LIDOCAINE 5% TOPICAL PATCH TP SCH (11:38)
--- NOTE | 2017-11-12 11:39 | PN ---
Physical Exam: SUBJECTIVE: Patient seen and examined. OBJECTIVE: Vital Signs Period Temp Pulse Resp BP Sys/Negron Pulse Ox Last 24 Hr 97.6 F-98.5 F 62-86 16-18 115-138/54-69 97-97 GENERAL: The patient is awake, alert, and fully oriented, in no acute distress. LUNGS: Lungs CTAB. No wheezes, crackles. HEART: RRR. No m/r/g. ABDOMEN: Soft, nondistended, +BS. TTP bilateral LQ. Formed stool. No hematochezia. NEUROLOGICAL: Cranial nerves II through XII grossly intact. Normal speech, gait steady. PSYCH: Normal mood, normal affect. Laboratory Results - last 24 hr 11/11/17 11/11/17 11/11/17 17:15 17:15 17:25 WBC 14.1 H D RBC 4.53 Hgb 13.0 Hct 39.3 MCV 86.8 MCH 28.6 MCHC 33.0 RDW 13.8 Plt Count 452 H MPV 9.0 Neutrophils % 82.1 Lymphocytes % 11.8 Monocytes % 5.3 Eosinophils % 0.8 Basophils % 0.0 PT with INR INR Sodium 137 Potassium 4.0 Chloride 105 Carbon Dioxide 24 Anion Gap 8 BUN 16 D Creatinine 0.6 Creat Clearance w eGFR > 60 Random Glucose 113 H D Calcium 9.2 Total Bilirubin 0.3 D AST 17 ALT 11 Alkaline Phosphatase 66 Total Protein 6.7 Albumin 3.7 Lipase 20 L Urine Color Yellow Urine Appearance Clear Urine pH 5.0 Ur Specific [place] >= 1.030 H Urine Protein 1+ H Urine Glucose (UA) Negative Urine Ketones 1+ H Urine Blood Negative Urine Nitrite Negative Urine Bilirubin 2+ H Urine Urobilinogen 0.2 Ur Leukocyte Esterase Negative Urine RBC 0-3 Urine WBC 3-5 Ur Epithelial Cells 3-5 Calcium Oxalate Crystal Moderate Urine Mucus 2+ 11/12/17 11/12/17 11/12/17 06:00 06:00 06:00 WBC 10.8 RBC 3.84 Hgb 11.5 D Hct 33.7 MCV 87.7 MCH 30.0 MCHC 34.2 RDW 13.9 Plt Count 309 MPV 8.6 Neutrophils % 77.2 Lymphocytes % 14.2 Monocytes % 7.7 Eosinophils % 0.8 Basophils % 0.1 PT with INR 14.2 H INR 1.27 H Sodium 134 L Potassium 4.7 Chloride 101 Carbon Dioxide 27 Anion Gap 6 L BUN 12 D Creatinine 0.6 Creat Clearance w eGFR > 60 Random Glucose 118 H Calcium 8.7 Total Bilirubin 0.8 D AST 14 ALT 8 L D Alkaline Phosphatase 57 Total Protein 5.5 L Albumin 2.9 L D Lipase Urine Color Urine Appearance Urine pH Ur Specific [place] Urine Protein Urine Glucose (UA) Urine Ketones Urine Blood Urine Nitrite Urine Bilirubin Urine Urobilinogen Ur Leukocyte Esterase Urine RBC Urine WBC Ur Epithelial Cells Calcium Oxalate Crystal Urine Mucus Active Medications Generic Name Dose Route Start Last Admin Trade Name Freq PRN Reason Stop Dose Admin Acetaminophen 650 mg 11/11/17 20:22 Tylenol - PO Q6H PRN PAIN 1-6 Albuterol/Ipratropium 1 amp 11/11/17 20:36 Duoneb - NEB Q4H PRN SHORTNESS OF BREATH Atenolol 25 mg 11/12/17 11:00 Tenormin - PO DAILY TITO Heparin Sodium (Porcine) 5,000 unit 11/12/17 06:00 11/12/17 06:18 Heparin - SQ 5,000 unit TID TITO Administration Sodium Chloride 1,000 mls @ 100 mls/hr 11/11/17 19:45 11/11/17 19:51 Normal Saline - IV 100 mls/hr ASDIR TITO Administration Metronidazole 500 mg in 100 mls @ 100 mls/hr 11/12/17 02:00 11/12/17 09:41 Flagyl 500mg Premixed Ivpb - IVPB 100 mls/hr Q8H-IV TITO Administration Levofloxacin 500 mg in 100 mls @ 100 mls/hr 11/12/17 10:00 11/12/17 09:41 Levaquin 500 Mg Premixed Ivpb - IVPB 100 mls/hr DAILY TITO Administration Sodium Chloride 1,000 mls @ 75 mls/hr 11/11/17 21:00 11/11/17 21:57 Normal Saline - IV 75 mls/hr ASDIR TITO Administration Lactobacillus Acidophilus 1 tab 11/12/17 10:00 11/12/17 09:42 Bacid - PO 1 tab DAILY TITO Administration Lidocaine 1 patch 11/12/17 10:49 Lidoderm Patch - TP DAILY TITO Miscellaneous 1 each 11/12/17 22:00 Lidoderm Patch Removal MC DAILY@2200 TITO Morphine Sulfate 4 mg 11/12/17 10:49 Morphine Injection - IVPB Q6H PRN PAIN LEVEL 7 - 10 Ondansetron HCl 8 mg 11/11/17 20:22 11/12/17 00:04 Zofran Injection IVPB 8 mg Q6H PRN Administration NAUSEA Quetiapine Fumarate 12.5 mg 11/11/17 22:00 11/11/17 21:57 Seroquel - PO 12.5 mg HS TITO Administration Rosuvastatin Calcium 10 mg 11/11/17 22:00 11/11/17 21:57 Crestor - PO 10 mg HS TITO Administration Zolpidem Tartrate 5 mg 11/11/17 20:56 11/11/17 22:28 Ambien - PO 5 mg HS PRN Administration INSOMNIA Imaging: CT/ABDOMEN PELVIS CT WITH CONTR Exam: CT abdomen and pelvis with IV contrast. Indication: Lower abdominal pain. History of diverticulitis. Technique: CT of the abdomen and pelvis performed with oral contrast, following the intravenous administration of 100 mL of Omnipaque 350 contrast. Comparison: 09/30/2017 CT abdomen/pelvis. Findings: There is linear scarring versus atelectasis in the left lung base. The heart is not enlarged. Normal liver size and contour. Calcified gallstones noted. No CT evidence of acute cholecystitis. No evidence of biliary ductal dilatation. Unremarkable pancreas. Normal size spleen, with no focal lesions. There is a 3.0 x 2.2 cm mass in the right adrenal gland, unchanged in size from 09/30/2017. There is no mass in the left adrenal gland. Normal size kidneys with symmetric enhancement. No hydroureteronephrosis. Normal caliber abdominal aorta. There is sigmoid diverticulosis with eccentric wall thickening in the mid to distal sigmoid colon. There is extensive surrounding fat stranding. Extraluminal gas locules in this region are not excluded. It should be with noting that portions of the appendix extending into this fat stranding. There is however air in the distal tip of the appendix. There is moderate volume of free fluid in the pelvis, with no drainable collection at this time. There is no evidence of bowel obstruction. The urinary bladder is collapsed and cannot be assessed. The uterus is surgically absent. Small fat-containing umbilical hernia and very small fat-containing left inguinal hernia are noted. No acute fracture in the visualized osseous structures. There are degenerative changes in the spine , sacroiliac joints and hips. Impression: 1. Recurrent acute sigmoid diverticulitis in the mid to distal sigmoid colon with eccentric wall thickening and significant surrounding inflammatory changes. Moderate volume of surrounding reactive free fluid, with no drainable collection at this time. Cannot exclude extraluminal gas locules. Underlying sigmoid mass cannot be excluded. Please correlate with most recent colonoscopy. 2. Cholelithiasis. No CT evidence of acute cholecystitis. No biliary ductal dilatation. 3. Indeterminant 3.0 x 2.2 cm right adrenal gland mass, unchanged in size from 09/30/2017. Reported By: Cynthia Dunbar DO 1019 ASSESSMENT/PLAN: A: P: Intractable Abdominal Pain - Likely secondary to Chronic Diverticulitis, multiple admissions - CT as above - remains afebrile - monitor WBC - MSO4 4mg q6h- may increase prn - Surgery consult pending - GI following - consider ID if does not improve Leukocytosis - resolved - trend WBC - Levaquin - Flagyl - Lactobacillus - consider ID if returns/worsens hypertension - BP well controlled - continue atenolol hyperlipidemia - Crestor copd - no acute excerbation presently - Duonebs Arthritis of shoulder - lidoderm - Tylenol Depression - Seroquel FEN - NS@75 - Replete prn - NPO PPX - OOB - SCDs Dispo: Requires observation of acute exacerbation of chronic condition Visit type - Emergency Visit Emergency Visit: Yes ED Registration Date: 11/11/17 Care time: The patient presented to the Emergency Department on the above date and was hospitalized for further evaluation of their emergent condition. - New Patient This patient is new to me today: Yes Date on this admission: 11/12/17 - Critical Care Critical Care patient: No
[2017-11-12] MEDS: ROSUVASTATIN CA 10 MG TABLET (FP) PO SCH (21:07)
[2017-11-12] MEDS: SODIUM CHLORIDE 1,000 ML IV SCH ×2 (21:08)
[2017-11-12] MEDS: QUEtiapine FUMARATE 25 MG TABLET (FP) PO SCH (21:08)
[2017-11-12] MEDS: LIDOCAINE PATCH REMOVAL MC SCH (21:08)
[2017-11-12] MEDS: ZOLPIDEM TARTRATE 5 MG TABLET PO PRN (21:43)
[2017-11-13] MEDS: METRONIDAZOLE 500 MG PREMIXED 500 MG/100 ML MG IVPB SCH ×3 (01:19→18:00)
[2017-11-13] MEDS: morphine CARPU-JECT 2 MG/1 ML DISP.SYRIN IVPB PRN ×2 (04:03→23:38)
[2017-11-13] MEDS: HEPARIN NA (PORCINE) 5,000 UNITS/ML 1ML VIAL SQ SCH ×3 (06:57→21:32)
[2017-11-13 09:33] LABS: BASO % 0.8 % (0-2.0); EOS % 3.1 % (0-4.5); HEMATOCRIT 33.1 % (32.4-45.2); HEMOGLOBIN 10.8 GM/dl (10.7-15.3); LYMPH % 29.8 % (8-40); MCH 28.8 pg (25.7-33.7); MCHC 32.7 g/dl (32.0-36.0); MEAN CELL VOLUME 88.3 fl (80-96); MEAN PLT VOLUME 9.1 fl (7.5-11.1); MONO % 7.4 % (3.8-10.2); NEUT % 58.9 % (42.8-82.8); PLATELET COUNT 329 K/MM3 (134-434); RBC 3.75 M/mm3 (3.60-5.2); RDW 13.8 % (11.6-15.6)
[2017-11-13] MEDS: ATENOLOL 25 MG TABLET (FP) PO SCH (09:39)
[2017-11-13] MEDS: LIDOCAINE 5% TOPICAL PATCH TP SCH (09:40)
[2017-11-13] MEDS: LEVOFLOXACIN 500 MG IVPB 500 MG/100 ML BAG IVPB SCH (09:40)
[2017-11-13] MEDS: LACTOBACILLUS ACIDOPHILUS 1 EACH TAB (FP) PO SCH (09:40)
[2017-11-13 09:58] LABS: ANION GAP 8 (8-16); BLOOD UREA NITROGEN 8 mg/dl (7-18); CALCIUM 8.5 mg/dl (8.4-10.2); CHLORIDE 103 mmol/L (98-107); CO2 25 mmol/L (22-28); CREATININE 0.6 mg/dl (0.6-1.3); GLUCOSE,RANDOM 92 mg/dl (74-106); SODIUM 136 mmol/L (136-145)
--- NOTE | 2017-11-13 11:01 | PN ---
Physical Exam: SUBJECTIVE: Patient seen and examined, reports feeling hungry, reports minimal abdominal pain, denies tactile fever. OBJECTIVE: patient is a 67 year old female with a significant past medical history of recurrent diverticulitis ( 5 admissions in the past year) , hypertension, hyperlipidemia, borderline diabetes, COPD, gallstones, depression and anxiety. Patient was admitted from the emergency department to observation Vital Signs Period Temp Pulse Resp BP Sys/Negron Pulse Ox Last 24 Hr 97.8 F-99.0 F 67-76 18-20 98-118/47-56 95-97 GENERAL: The patient is obese, awake, alert, and fully oriented, in no acute distress. HEAD: Normal with no signs of trauma. EYES: PERRL, extraocular movements intact, sclera anicteric, conjunctiva clear. No ptosis. ENT: Ears normal, nares patent, oropharynx clear without exudates, moist mucous membranes. NECK: Trachea midline, full range of motion, supple. LUNGS: Breath sounds equal, clear to auscultation bilaterally, no wheezes, no crackles, no accessory muscle use. HEART: Regular rate and rhythm, S1, S2 without murmur, rub or gallop. ABDOMEN: Soft, nontender, nondistended, hyperactive bowel sounds, no guarding, no rebound, no hepatosplenomegaly, no masses. EXTREMITIES: 2+ pulses, warm, well-perfused, no edema. NEUROLOGICAL: Cranial nerves II through XII grossly intact. Normal speech, gait not observed. PSYCH: Normal mood, normal affect. SKIN: Warm, dry, normal turgor, no rashes or lesions noted Laboratory Results - last 24 hr 11/13/17 11/13/17 06:00 06:00 WBC 7.0 D RBC 3.75 Hgb 10.8 Hct 33.1 MCV 88.3 MCH 28.8 MCHC 32.7 RDW 13.8 Plt Count 329 MPV 9.1 Neutrophils % 58.9 Lymphocytes % 29.8 Monocytes % 7.4 Eosinophils % 3.1 Basophils % 0.8 Sodium 136 Potassium 4.0 Chloride 103 Carbon Dioxide 25 Anion Gap 8 BUN 8 D Creatinine 0.6 Random Glucose 92 D Calcium 8.5 Active Medications Generic Name Dose Route Start Last Admin Trade Name Freq PRN Reason Stop Dose Admin Acetaminophen 650 mg 11/11/17 20:22 11/12/17 15:05 Tylenol - PO 650 mg Q6H PRN Administration PAIN 1-6 Albuterol/Ipratropium 1 amp 11/11/17 20:36 Duoneb - NEB Q4H PRN SHORTNESS OF BREATH Atenolol 25 mg 11/12/17 11:00 11/13/17 09:39 Tenormin - PO 25 mg DAILY TITO Administration Heparin Sodium (Porcine) 5,000 unit 11/12/17 06:00 11/13/17 06:57 Heparin - SQ 5,000 unit TID TITO Administration Metronidazole 500 mg in 100 mls @ 100 mls/hr 11/12/17 02:00 11/13/17 09:40 Flagyl 500mg Premixed Ivpb - IVPB 100 mls/hr Q8H-IV TITO Administration Levofloxacin 500 mg in 100 mls @ 100 mls/hr 11/12/17 10:00 11/13/17 09:40 Levaquin 500 Mg Premixed Ivpb - IVPB 100 mls/hr DAILY TITO Administration Sodium Chloride 1,000 mls @ 75 mls/hr 11/11/17 21:00 11/12/17 21:08 Normal Saline - IV 75 mls/hr ASDIR TITO Administration Lactobacillus Acidophilus 1 tab 11/12/17 10:00 11/13/17 09:40 Bacid - PO 1 tab DAILY TITO Administration Lidocaine 1 patch 11/12/17 10:49 11/13/17 09:40 Lidoderm Patch - TP 1 patch DAILY TITO Administration Miscellaneous 1 each 11/12/17 22:00 11/12/17 21:08 Lidoderm Patch Removal MC 1 each DAILY@2200 TITO Administration Morphine Sulfate 4 mg 11/12/17 10:49 11/13/17 04:03 Morphine Injection - IVPB 4 mg Q6H PRN Administration PAIN LEVEL 7 - 10 Ondansetron HCl 8 mg 11/11/17 20:22 11/12/17 00:04 Zofran Injection IVPB 8 mg Q6H PRN Administration NAUSEA Quetiapine Fumarate 12.5 mg 11/11/17 22:00 11/12/17 21:08 Seroquel - PO 12.5 mg HS TITO Administration Rosuvastatin Calcium 10 mg 11/11/17 22:00 11/12/17 21:07 Crestor - PO 10 mg HS TITO Administration Zolpidem Tartrate 5 mg 11/11/17 20:56 11/12/17 21:43 Ambien - PO 5 mg HS PRN Administration INSOMNIA Microbiology 11/11/17 17:15 Blood - Peripheral Venous Blood Culture - Preliminary NO GROWTH OBTAINED AFTER 24 HOURS, INCUBATION TO CONTINUE FOR 4 DAYS. 11/11/17 17:15 Blood - Peripheral Venous Blood Culture - Preliminary NO GROWTH OBTAINED AFTER 24 HOURS, INCUBATION TO CONTINUE FOR 4 DAYS. ASSESSMENT/PLAN: maging: CT/ABDOMEN PELVIS CT WITH CONTR Exam: CT abdomen and pelvis with IV contrast. Indication: Lower abdominal pain. History of diverticulitis. Technique: CT of the abdomen and pelvis performed with oral contrast, following the intravenous administration of 100 mL of Omnipaque 350 contrast. Comparison: 09/30/2017 CT abdomen/pelvis. Findings: There is linear scarring versus atelectasis in the left lung base. The heart is not enlarged. Normal liver size and contour. Calcified gallstones noted. No CT evidence of acute cholecystitis. No evidence of biliary ductal dilatation. Unremarkable pancreas. Normal size spleen, with no focal lesions. There is a 3.0 x 2.2 cm mass in the right adrenal gland, unchanged in size from 09/30/2017. There is no mass in the left adrenal gland. Normal size kidneys with symmetric enhancement. No hydroureteronephrosis. Normal caliber abdominal aorta. There is sigmoid diverticulosis with eccentric wall thickening in the mid to distal sigmoid colon. There is extensive surrounding fat stranding. Extraluminal gas locules in this region are not excluded. It should be with noting that portions of the appendix extending into this fat stranding. There is however air in the distal tip of the appendix. There is moderate volume of free fluid in the pelvis, with no drainable collection at this time. There is no evidence of bowel obstruction. The urinary bladder is collapsed and cannot be assessed. The uterus is surgically absent. Small fat-containing umbilical hernia and very small fat-containing left inguinal hernia are noted. No acute fracture in the visualized osseous structures. There are degenerative changes in the spine , sacroiliac joints and hips. Impression: 1. Recurrent acute sigmoid diverticulitis in the mid to distal sigmoid colon with eccentric wall thickening and significant surrounding inflammatory changes. Moderate volume of surrounding reactive free fluid, with no drainable collection at this time. Cannot exclude extraluminal gas locules. Underlying sigmoid mass cannot be excluded. Please correlate with most recent colonoscopy. 2. Cholelithiasis. No CT evidence of acute cholecystitis. No biliary ductal dilatation. 3. Indeterminant 3.0 x 2.2 cm right adrenal gland mass, unchanged in size from 09/30/2017. Reported By: Cynthia Dunbar DO 1019 ASSESSMENT/PLAN: 1) Intractable Abdominal Pain - Likely secondary to Chronic Diverticulitis, multiple admissions - remains afebrile leukocytosis improved, continue flagyl and levaquin - continue prn morphine - case discussed with Dr Flanagan, surgery, unable to evaluate patient, will defer to Dr Jean Baptiste, surgery - GI following 2) cardiovascular hypertension - BP well controlled - continue atenolol hyperlipidemia - Crestor 3) pulm copd - no acute exacerbation presently - Duonebs prn 4) MS Arthritis of shoulder - lidoderm - Tylenol prn 5) psych Depression - Seroquel FEN - NS@75 - Replete prn - clear liquid diet PPX - OOB - SCDs Dispo: Requires observation of acute exacerbation of chronic condition Visit type - Emergency Visit Emergency Visit: Yes ED Registration Date: 11/11/17 Care time: The patient presented to the Emergency Department on the above date and was hospitalized for further evaluation of their emergent condition. - New Patient This patient is new to me today: Yes Date on this admission: 11/13/17 - Critical Care Critical Care patient: No - Discharge Referral Referred to [facility] No
--- NOTE | 2017-11-13 15:45 | EKG ---
Test Reason : Blood Pressure : / mmHG Vent. Rate : 065 BPM Atrial Rate : 065 BPM P-R Int : 206 ms QRS Dur : 080 ms QT Int : 444 ms P-R-T Axes : -27 035 054 degrees QTc Int : 461 ms SINUS RHYTHM WITH 1ST DEGREE A-V BLOCK NONSPECIFIC T WAVE ABNORMALITY WHEN COMPARED WITH ECG OF 20-OCT-2017 14:35, NO SIGNIFICANT CHANGE WAS FOUND Confirmed by ABIODUN TOUSSAINT, DHIRAJ ([id number]) on 11/13/2017 3:45:30 PM Referred By: DR BRADLEY Confirmed By:DHIRAJ RASCON MD
[2017-11-13] MEDS: QUEtiapine FUMARATE 25 MG TABLET (FP) PO SCH (21:33)
[2017-11-13] MEDS: ROSUVASTATIN CA 10 MG TABLET (FP) PO SCH (21:33)
[2017-11-13] MEDS: SODIUM CHLORIDE 1,000 ML IV SCH (21:33)
[2017-11-13] MEDS: ZOLPIDEM TARTRATE 5 MG TABLET PO PRN (21:33)
[2017-11-13] MEDS: LIDOCAINE PATCH REMOVAL MC SCH (22:30)
[2017-11-14] MEDS: METRONIDAZOLE 500 MG PREMIXED 500 MG/100 ML MG IVPB SCH ×2 (02:12→09:35)
[2017-11-14] MEDS: HEPARIN NA (PORCINE) 5,000 UNITS/ML 1ML VIAL SQ SCH (06:14)
[2017-11-14 06:53] VITALS: BP 118/52; PULSE 75; TEMP 97.8
--- NOTE | 2017-11-14 07:54 | CONSULT ---
- Consultation REQUESTING PROVIDER: Ivet Toscano INSURANCE BILLING SPECIALIST CONSULT REQUEST: We have been asked to surgically evaluate this patient for ( specify). PCP:Ivet Toscano HISTORY OF PRESENT ILLNESS:EDMARP who is a 67 y/o female admitted w/recurrent acute sigmoid diverticulitis; I last saw her 09/02/17; she has been seen by # surgeons and was most recently referred to a tertiary care center for evaluation for surgery; she did not make it there b/o this recuurent acute attack; since admission again w/ conservative tx. she feels better. PMHx: depression; anxiety; hypertension PSHx: none Home Medications Medication Instructions Recorded Quetiapine Fumarate [Seroquel -] 12.5 mg PO HS 03/01/15 Rosuvastatin Calcium [Crestor] 10 mg PO HS 03/01/15 Zolpidem Tartrate [Ambien] 10 mg PO HS PRN #7 tablet MDD 1 12/02/16 Lactobacillus Acidophilus [Bacid -] 1 tab PO DAILY tab 10/11/17 Lidocaine 5% Patch [Lidoderm -] 1 patch TP DAILY #30 patch 10/11/17 Atenolol [Tenormin -] 25 mg PO DAILY #30 tablet 10/18/17 Tramadol HCl 50 mg PO QID PRN #20 tablet MDD 4 10/18/17 Allergies Allergy/AdvReac Type Severity Reaction Status Date / Time No Known Drug Allergies Allergy Verified 10/18/17 11:55 CATS Allergy Uncoded 10/18/17 11:55 PHYSICAL EXAM: GENERAL: Awake, alert, and fully oriented, in no acute distress. HEAD: Normal with no signs of trauma. EYES: sclera anicteric, conjunctiva clear. NECK: Normal ROM, supple without lymphadenopathy, JVD, or masses. ABDOMEN: Soft, nontender, not distended, normoactive bowel sounds, no guarding, no rebound, no masses. No organomegaly. No hernias MUSCULOSKELETAL: Normal ROM at all joints. No bony deformities or tenderness. No CVA tenderness. UPPER EXTREMITIES: 2+ pulses, warm, well-perfused. No cyanosis. Cap refill <2 seconds. No peripheral edema. LOWER EXTREMITIES: 2+ pulses, warm, well-perfused. No calf tenderness. No peripheral edema. NEUROLOGICAL: Normal speech, gait not observed. PSYCH: Cooperative. Good eye contact. Appropriate mood and affect. SKIN: Warm, dry, normal turgor, no rashes or lesions noted. Vital Signs Temperature 97.8 F 11/14/17 06:00 Pulse Rate 75 11/14/17 06:00 Respiratory Rate 19 11/14/17 06:00 Blood Pressure 118/52 11/14/17 06:00 O2 Sat by Pulse Oximetry (%) 97 11/13/17 22:00 Lab Results WBC 7.0 K/mm3 (4.0-10.8) D 11/13/17 06:00 RBC 3.75 M/mm3 (3.60-5.2) 11/13/17 06:00 Hgb 10.8 GM/dl (10.7-15.3) 11/13/17 06:00 Hct 33.1 % (32.4-45.2) 11/13/17 06:00 MCV 88.3 fl (80-96) 11/13/17 06:00 MCHC 32.7 g/dl (32.0-36.0) 11/13/17 06:00 RDW 13.8 % (11.6-15.6) 11/13/17 06:00 Plt Count 329 K/MM3 (134-434) 11/13/17 06:00 Sodium 136 mmol/L (136-145) 11/13/17 06:00 Potassium 4.0 mmol/L (3.5-5.1) 11/13/17 06:00 Chloride 103 mmol/L (98-107) 11/13/17 06:00 Carbon Dioxide 25 mmol/L (22-28) 11/13/17 06:00 Anion Gap 8 (8-16) 11/13/17 06:00 BUN 8 mg/dl (7-18) D 11/13/17 06:00 Creatinine 0.6 mg/dl (0.6-1.3) 11/13/17 06:00 Random Glucose 92 mg/dl (74-106) D 11/13/17 06:00 Calcium 8.5 mg/dl (8.4-10.2) 11/13/17 06:00 INR 1.27 (0.82-1.09) H 11/12/17 06:00 Imaging w/u to date reviewed IMP: recurrent acute sigmoid diverticulitis PLAN: Continue present tx.; she in the past has indicated she desired to have surgery elsewhere and by others whom I will defer to; her GI specialist and PCP should make concerted efforts to make sure this happens; in the interim advise advancing her diet as tolerated and continuing IVABs w/transition to PO antibiotics for the post discharge period. Roman Jean Baptiste MD FACS Visit type - Case Type Case Type: ED Admission - Emergency Emergency Visit: Yes ED Registration Date: 11/11/17 Care time: The patient presented to the Emergency Department on the above date and was hospitalized for further evaluation of their emergent condition. - New patient This patient is new to me today: Yes Date on this admission: 11/14/17
[2017-11-14 08:30] LABS: BASO % 0.7 % (0-2.0); EOS % 4.7 % (0-4.5); HEMATOCRIT 32.3 % (32.4-45.2); HEMOGLOBIN 10.5 GM/dl (10.7-15.3); LYMPH % 36.3 % (8-40); MCH 28.4 pg (25.7-33.7); MCHC 32.6 g/dl (32.0-36.0); MEAN CELL VOLUME 87.2 fl (80-96); MEAN PLT VOLUME 8.6 fl (7.5-11.1); MONO % 10.2 % (3.8-10.2); NEUT % 48.1 % (42.8-82.8); PLATELET COUNT 322 K/MM3 (134-434); RBC 3.71 M/mm3 (3.60-5.2); RDW 13.6 % (11.6-15.6); WHITE BLOOD COUNT 5.4 K/mm3 (4.0-10.8)
[2017-11-14 09:08] LABS: ANION GAP 5 (8-16); BLOOD UREA NITROGEN 7 mg/dl (7-18); CALCIUM 8.8 mg/dl (8.4-10.2); CHLORIDE 104 mmol/L (98-107); CO2 28 mmol/L (22-28); CREATININE 0.6 mg/dl (0.6-1.3); GLUCOSE,RANDOM 98 mg/dl (74-106); POTASSIUM 4.3 mmol/L (3.5-5.1); SODIUM 137 mmol/L (136-145)
--- NOTE | 2017-11-14 09:19 | DS ---
Physical Exam: SUBJECTIVE: Patient seen and examined, tolerating soft diet, denies any tactile fevers. OBJECTIVE:67 year old female with a significant past medical history of diverticulitis, hypertension, hyperlipidemia, borderline diabetes, COPD, gallstones, depression and anxiety who presents to ER for abdominal pain. She was seen 09/2017 for similar symptoms and found to have acute diverticulits and treated with IV ABX. She again returns to the ER with constant lower abdominal pain which began this am. She reports the pain was "nagging" 05/08. She reports taking 3 ES tylenol with no effect. She reports eating [place] this AM. She reports seeing her GI doctor (Bebe) 2 days ago. She also reports seeing surgery several days prior who recommended follow up with [facility] specialist ( diverticular disease). She reports having sweats last night. She denies associated vomiting, diarrhea, constipation, melena, hematemesis, fevers, chills. She denies sob, CP, heart palps, dizziness. She reports feeling better after getting IV Tylenol and Morphine Vital Signs Period Temp Pulse Resp BP Sys/Negron Pulse Ox Last 24 Hr 97.8 F-98.1 F 68-75 18-19 118-120/52-62 94-97 PHYSICAL EXAM GENERAL: The patient is awake, alert, and fully oriented, in no acute distress. HEAD: Normal with no signs of trauma. EYES: PERRL, extraocular movements intact, sclera anicteric, conjunctiva clear. ENT: Ears normal, nares patent, oropharynx clear without exudates, moist mucous membranes. NECK: Trachea midline, full range of motion, supple. LUNGS: Breath sounds equal, clear to auscultation bilaterally, no wheezes, no crackles, no accessory muscle use. HEART: Regular rate and rhythm, S1, S2 without murmur, rub or gallop. ABDOMEN: Soft, nontender, nondistended, normoactive bowel sounds, no guarding, no rebound, no hepatosplenomegaly, no masses. EXTREMITIES: 2+ pulses, warm, well-perfused, no edema. NEUROLOGICAL: Cranial nerves II through XII grossly intact. Normal speech, gait not observed. PSYCH: Normal mood, normal affect. SKIN: Warm, dry, normal turgor, no rashes or lesions noted. LABS Laboratory Results - last 24 hr 0111/13/17 11/13/17 06:00 06:00 06:00 WBC 7.0 D RBC 3.75 Hgb 10.8 Hct 33.1 MCV 88.3 MCH 28.8 MCHC 32.7 RDW 13.8 Plt Count 329 MPV 9.1 Neutrophils % 58.9 Lymphocytes % 29.8 Monocytes % 7.4 Eosinophils % 3.1 Basophils % 0.8 Sodium 136 Potassium 4.0 Chloride 103 Carbon Dioxide 25 Anion Gap 8 BUN 8 D Creatinine 0.6 Random Glucose 92 D Calcium 8.5 C-Reactive Protein 13.8 H 11/14/17 07:00 WBC 5.4 RBC 3.71 Hgb 10.5 L Hct 32.3 L MCV 87.2 MCH 28.4 MCHC 32.6 RDW 13.6 Plt Count 322 MPV 8.6 Neutrophils % 48.1 Lymphocytes % 36.3 Monocytes % 10.2 Eosinophils % 4.7 H Basophils % 0.7 Sodium Potassium Chloride Carbon Dioxide Anion Gap BUN Creatinine Random Glucose Calcium C-Reactive Protein Microbiology 11/11/17 17:15 Blood - Peripheral Venous Blood Culture - Preliminary NO GROWTH OBTAINED AFTER 48 HOURS, INCUBATION TO CONTINUE FOR 3 DAYS. 11/11/17 17:15 Blood - Peripheral Venous Blood Culture - Preliminary NO GROWTH OBTAINED AFTER 48 HOURS, INCUBATION TO CONTINUE FOR 3 DAYS. maging: CT/ABDOMEN PELVIS CT WITH CONTR Exam: CT abdomen and pelvis with IV contrast. Indication: Lower abdominal pain. History of diverticulitis. Technique: CT of the abdomen and pelvis performed with oral contrast, following the intravenous administration of 100 mL of Omnipaque 350 contrast. Comparison: 09/30/2017 CT abdomen/pelvis. Findings: There is linear scarring versus atelectasis in the left lung base. The heart is not enlarged. Normal liver size and contour. Calcified gallstones noted. No CT evidence of acute cholecystitis. No evidence of biliary ductal dilatation. Unremarkable pancreas. Normal size spleen, with no focal lesions. There is a 3.0 x 2.2 cm mass in the right adrenal gland, unchanged in size from 09/30/2017. There is no mass in the left adrenal gland. Normal size kidneys with symmetric enhancement. No hydroureteronephrosis. Normal caliber abdominal aorta. There is sigmoid diverticulosis with eccentric wall thickening in the mid to distal sigmoid colon. There is extensive surrounding fat stranding. Extraluminal gas locules in this region are not excluded. It should be with noting that portions of the appendix extending into this fat stranding. There is however air in the distal tip of the appendix. There is moderate volume of free fluid in the pelvis, with no drainable collection at this time. There is no evidence of bowel obstruction. The urinary bladder is collapsed and cannot be assessed. The uterus is surgically absent. Small fat-containing umbilical hernia and very small fat-containing left inguinal hernia are noted. No acute fracture in the visualized osseous structures. There are degenerative changes in the spine , sacroiliac joints and hips. Impression: 1. Recurrent acute sigmoid diverticulitis in the mid to distal sigmoid colon with eccentric wall thickening and significant surrounding inflammatory changes. Moderate volume of surrounding reactive free fluid, with no drainable collection at this time. Cannot exclude extraluminal gas locules. Underlying sigmoid mass cannot be excluded. Please correlate with most recent colonoscopy. 2. Cholelithiasis. No CT evidence of acute cholecystitis. No biliary ductal dilatation. 3. Indeterminant 3.0 x 2.2 cm right adrenal gland mass, unchanged in size from 09/30/2017. Reported By: Cynthia Dunbar DO 1019 ekg sinus rhythm with av block (unchanged from prior) HOSPITAL COURSE: patient was admitted from the emergency department for Intractable Abdominal Pain, secondary to Chronic Diverticulitis. Patient has multiple admissions, 5 admission within the past year. She was evaluated by GI, Dr Talley during this admission. In addition, she was evaluated by general surgeon Dr Jean Baptiste, patient was referred to a specialist of diverticular disease in [facility] and has yet to follow up with physician. She defers surgery at this time and prefers to follow up with specialist (diverticular) in [facility]. Patient was treated with iv levaquin and flagyl during this admission. Leukocytosis improved, patient is afebrile. Blood pressure remained at goal throughout admission and home dose atenolol was continued. PLAN - discharge home with levaquin and flagyl - strict follow up with specialist at [facility]. diverticular specialist as per patient' s preference - return precautions reviewed Date of Admission:11/11/17 Date of Discharge: 11/14/17 Minutes to complete discharge: 45 Discharge Summary Reason For Visit: DIVERTICULITIS Current Active Problems Acute diverticulitis (Acute) Condition: Improved - Instructions Diet, Activity, Other Instructions: continue taking levaquin and flagyl as prescribed continue all medications as prescribed please follow up with surgeon within 1 week Referrals: David Randle MD [Staff Physician] - Disposition: HOME - Home Medications Comprehensive Discharge Medication List: Ambulatory Orders Quetiapine Fumarate [Seroquel -] 12.5 mg PO HS 03/01/15 Rosuvastatin Calcium [Crestor] 10 mg PO HS 03/01/15 Zolpidem Tartrate [Ambien] 10 mg PO HS PRN #7 tablet MDD 1 12/02/16 Lactobacillus Acidophilus [Bacid -] 1 tab PO DAILY tab 10/11/17 Lidocaine 5% Patch [Lidoderm -] 1 patch TP DAILY #30 patch 10/11/17 Atenolol [Tenormin -] 25 mg PO DAILY #30 tablet 10/18/17 Tramadol HCl 50 mg PO QID PRN #20 tablet MDD 4 10/18/17 This patient is new to me today: No Emergency Visit: Yes ED Registration Date: 11/11/17 Care time: The patient presented to the Emergency Department on the above date and was hospitalized for further evaluation of their emergent condition. Critical Care patient: No - Discharge Referral Referred to [facility] No
[2017-11-14] MEDS: ATENOLOL 25 MG TABLET (FP) PO SCH (09:34)
[2017-11-14] MEDS: LEVOFLOXACIN 500 MG IVPB 500 MG/100 ML BAG IVPB SCH (09:35)
[2017-11-14] MEDS: LIDOCAINE 5% TOPICAL PATCH TP SCH (09:35)
[2017-11-14] MEDS: LACTOBACILLUS ACIDOPHILUS 1 EACH TAB (FP) PO SCH (09:35)
--- NOTE | 2017-11-14 12:23 | EKG ---
Test Reason : Blood Pressure : / mmHG Vent. Rate : 077 BPM Atrial Rate : 077 BPM P-R Int : 220 ms QRS Dur : 076 ms QT Int : 402 ms P-R-T Axes : -19 019 041 degrees QTc Int : 454 ms SINUS RHYTHM WITH 1ST DEGREE A-V BLOCK LOW VOLTAGE QRS BORDERLINE ECG WHEN COMPARED WITH ECG OF 11-NOV-2017 17:43, NO SIGNIFICANT CHANGE WAS FOUND Confirmed by MD Lele, Jesus Manuel ([id number]) on 11/14/2017 12:23:12 PM Referred By: GOMEZ ELENA Confirmed By:Jesus Manuel Royal MD
== END 2017-11-14 13:30 | disposition home or self-care (01) ==
LOC: FER 15:30 → UNDOADMOB 20:06 → INTOOBSV 20:06 → FM/S 20:06
PROVIDERS: ADMIT Internal Medicine; ATTEND Nurse Practitioner Family
PROC: 3E03329 Introduction of Other Anti-infective into Peripheral Vein, Percutaneous Approach (ICD-10-PCS; principal; 2017-11-11)
PROC: 3E033NZ Introduction of Analgesics, Hypnotics, Sedatives into Peripheral Vein, Percutaneous Approach (ICD-10-PCS; 2017-11-11)
PROC: 3E013GC Introduction of Other Therapeutic Substance into Subcutaneous Tissue, Percutaneous Approach (ICD-10-PCS; 2017-11-11)
DX: K57.92 Diverticulitis of intestine, part unspecified, without perforation or abscess without bleeding (principal); D72.829 Elevated white blood cell count, unspecified; I10 Essential (primary) hypertension; E78.5 Hyperlipidemia, unspecified; R73.03 Prediabetes; J44.9 Chronic obstructive pulmonary disease, unspecified; F41.8 Other specified anxiety disorders; Z87.891 Personal history of nicotine dependence; Z87.440 Personal history of urinary (tract) infections; Z87.19 Personal history of other diseases of the digestive system; M13.819 Other specified arthritis, unspecified shoulder
CPT/HCPCS: 36415; 74177-TC; 80048; 80053; 81003; 81015; 83690; 85025; 85610; 86140; 87040; 93005; 99282-25; G0378; J1644

== ENCOUNTER 2017-11-25 19:37 | Emergency (ER) | payer BC ==
[2017-11-25] MEDS ORDERED: LEVOFLOXACIN 500 MG IVPB 500 MG/100 ML BAG IVPB ONE ×2 (19:57→19:59)
[2017-11-25] MEDS ORDERED: morphine SULFATE 4 MG/ML VIAL ONE (19:57)
[2017-11-25] MEDS ORDERED: METRONIDAZOLE 500 MG PREMIXED 500 MG/100 ML MG IVPB ONE ×2 (19:58→19:59)
[2017-11-25] MEDS ORDERED: morphine CARPU-JECT 4 MG/1 ML DISP.SYRIN IVPUSH STA (19:59)
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
[2017-11-25 20:08] VITALS: BP 117/71; PULSE 88; TEMP 98; BMI 40.9
[2017-11-25] MEDS ORDERED: LEVOFLOXACIN 500 MG TABLET (FP) PO ONE (21:58)
[2017-11-25] MEDS ORDERED: metroNIDAZOLE 250 MG TABLET PO ONE (21:58)
== END 2017-11-25 22:08 | disposition home or self-care (01) ==
LOC: SUPCPDRO 19:37 → FER 19:37
PROC: 3E03329 Introduction of Other Anti-infective into Peripheral Vein, Percutaneous Approach (ICD-10-PCS; principal; 2017-11-25)
PROC: 3E033NZ Introduction of Analgesics, Hypnotics, Sedatives into Peripheral Vein, Percutaneous Approach (ICD-10-PCS; 2017-11-25)
DX: K57.92 Diverticulitis of intestine, part unspecified, without perforation or abscess without bleeding (principal); I10 Essential (primary) hypertension; E78.5 Hyperlipidemia, unspecified; R07.0 Pain in throat; R73.03 Prediabetes; F41.8 Other specified anxiety disorders; Z87.891 Personal history of nicotine dependence
CPT/HCPCS: 99282-25

== ENCOUNTER 2017-11-26 17:57 | Emergency (ER) | payer BC ==
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
[2017-11-26] MEDS ORDERED: traMADol HCL 50 MG TABLET PO ONE (18:05)
[2017-11-26 18:18] VITALS: BP 107/58; PULSE 62; TEMP 98.5; BMI 41.3
[2017-11-26] MEDS ORDERED: traMADol HCL 50 MG TABLET ONE (18:19)
== END 2017-11-26 19:25 | disposition home or self-care (01) ==
LOC: FER 17:57
DX: K57.92 Diverticulitis of intestine, part unspecified, without perforation or abscess without bleeding (principal); Z87.891 Personal history of nicotine dependence; R73.03 Prediabetes; I10 Essential (primary) hypertension; F32.9 Major depressive disorder, single episode, unspecified; J42 Unspecified chronic bronchitis
CPT/HCPCS: 99282-25

== ENCOUNTER 2017-11-27 05:27 | Inpatient (IN) | payer BC ==
[2017-11-27] MEDS ORDERED: traMADol HCL 50 MG TABLET PO ONE (05:40)
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
[2017-11-27] MEDS ORDERED: traMADol HCL 50 MG TABLET ONE (05:56)
[2017-11-27] MEDS ORDERED: morphine SULFATE 4 MG/ML VIAL ONE ×2 (05:58→10:05)
[2017-11-27] MEDS ORDERED: morphine CARPU-JECT 4 MG/1 ML DISP.SYRIN IVPUSH ONE ×2 (05:58→09:58)
[2017-11-27 06:25] LABS: BASO % 0.6 % (0-2.0); EOS % 1.2 % (0-4.5); HEMATOCRIT 37.9 % (32.4-45.2); HEMOGLOBIN 12.4 GM/dL (10.7-15.3); LYMPH % 28.3 % (8-40); MCH 28.3 pg (25.7-33.7); MCHC 32.6 g/dl (32.0-36.0); MEAN CELL VOLUME 86.7 fl (80-96); MEAN PLT VOLUME 8.6 fl (7.5-11.1); MONO % 7.3 % (3.8-10.2); NEUT % 62.6 % (42.8-82.8); PLATELET COUNT 440 K/MM3 (134-434); RBC 4.37 M/mm3 (3.60-5.2); RDW 14.8 % (11.6-15.6); WHITE BLOOD COUNT 9.4 K/mm3 (4.0-10.0)
[2017-11-27 06:42] LABS: URINE APPEARANCE CLEAR; URINE BILIRUBIN NEGATIVE (NEGATIVE); URINE BLOOD NEGATIVE (NEGATIVE); URINE COLOR YELLOW; URINE GLUCOSE (UA) NEGATIVE (NEGATIVE); URINE KETONE NEGATIVE (NEGATIVE); URINE NITRITE NEGATIVE (NEGATIVE); URINE PROTEIN NEGATIVE (NEGATIVE); URINE UROBILINOGEN NEGATIVE mg/dL (0.2-1.0)
[2017-11-27 07:03] LABS: ALBUMIN 3.3 g/dl (3.4-5.0); ANION GAP 7 (8-16); BILIRUBIN,TOTAL 0.3 mg/dL (0.2-1.0); BLOOD UREA NITROGEN 16 mg/dL (7-18); CALCIUM 8.5 mg/dL (8.5-10.1); CHLORIDE 105 mmol/L (98-107); CO2 28 mmol/L (21-32); CREATININE 0.7 mg/dL (0.55-1.02); GLUCOSE,RANDOM 140 mg/dL (74-106); POTASSIUM 4.5 mmol/L (3.5-5.1); SGOT/AST 9 U/L (15-37); SGPT/ALT 15 U/L (12-78); SODIUM 140 mmol/L (136-145); TOT PROT 6.6 g/dl (6.4-8.2)
[2017-11-27 07:04] LABS: ALK PHOS 72 U/L (45-117)
[2017-11-27 07:52] LABS: URINE LEUK ESTERASE 2+ (NEGATIVE)
[2017-11-27 08:21] LABS: EPI CELLS RARE /HPF (FEW); URINE HYALINE CAST 1 /lpf; URINE MUCUS MANY
[2017-11-27] MEDS ORDERED: CIPROFLOXACIN 400 MG/D5W 400 MG/200 ML IVPB IVPB ONE (10:30)
[2017-11-27] MEDS ORDERED: METRONIDAZOLE 500 MG PREMIXED 500 MG/100 ML MG IVPB ONE (10:34)
[2017-11-27] MEDS: METRONIDAZOLE 500 MG PREMIXED 500 MG/100 ML MG IVPB ONE (10:39)
[2017-11-27] MEDS ORDERED: ACETAMINOPHEN 325 MG TABLET (FP) PO PRN (11:20)
[2017-11-27] MEDS ORDERED: ZOLPIDEM TARTRATE 5 MG TABLET PO PRN (11:20)
[2017-11-27] MEDS ORDERED: traMADol HCL 50 MG TABLET PO PRN (11:20)
--- NOTE | 2017-11-27 11:24 | PDOC ---
*Physical Exam - Vital Signs Last Vital Signs Temp Pulse Resp BP Pulse Ox 98.1 F 84 18 134/72 97 11/27/17 05:36 11/27/17 09:30 11/27/17 09:30 11/27/17 09:30 11/27/17 09:30 ED Treatment Course - LABORATORY CBC & Chemistry Diagram: 11/27/17 05:50 11/27/17 05:50 - ADDITIONAL ORDERS Additional order review: Laboratory Results 11/27/17 11/27/17 05:50 05:50 Sodium 140 Potassium 4.5 Chloride 105 Carbon Dioxide 28 Anion Gap 7 L BUN 16 Creatinine 0.7 Creat Clearance w eGFR > 60 Random Glucose 140 H Calcium 8.5 Total Bilirubin 0.3 AST 9 L ALT 15 Alkaline Phosphatase 72 Total Protein 6.6 Albumin 3.3 L Urine Color Yellow Urine Appearance Clear Urine pH 5.0 D Ur Specific [place] 1.023 Urine Protein Negative Urine Glucose (UA) Negative Urine Ketones Negative Urine Blood Negative Urine Nitrite Negative Urine Bilirubin Negative Urine Urobilinogen Negative Ur Leukocyte Esterase 2+ H Urine WBC (Auto) 13 Urine RBC (Auto) 1 Ur Epithelial Cells Rare Hyaline Casts 1 Urine Mucus Many 11/27/17 05:50 RBC 4.37 MCV 86.7 MCHC 32.6 RDW 14.8 MPV 8.6 Neutrophils % 62.6 Lymphocytes % 28.3 Monocytes % 7.3 Eosinophils % 1.2 Basophils % 0.6 - Medications Given in the ED: ED Medications Discontinued Medications Generic Name Dose Route Start Last Admin Trade Name Freq PRN Reason Stop Dose Admin Morphine Sulfate 4 mg 11/27/17 05:58 11/27/17 05:59 Morphine Injection - IVPUSH 11/27/17 05:59 4 mg ONCE ONE Administration Morphine Sulfate 4 mg 11/27/17 09:58 11/27/17 10:10 Morphine Injection - IVPUSH 11/27/17 09:59 4 mg ONCE ONE Administration Tramadol HCl 50 mg 11/27/17 05:40 11/27/17 05:59 Ultram - PO 11/27/17 05:41 Not Given ONCE ONE Medical Decision Making - Medical Decision Making 11/27/17 11:19 Patient signed out to me by Dr. Lau as diverticulitis with failure of outpatient pain control and antibiotics, here for the third visit in [address] shows diverticulits throughout the sigmoid colon without abscess or perforation. Given IV cipro flagyl and IV morphine in the Ed. Will admit for IV antibiotics due to the failure of outpatient antibiotic therapy. Case discussed with Dr. Lorenzana, who agrees. *DC/Admit/Observation/Transfer Diagnosis at time of Disposition: Diverticulitis - Discharge Dispostion Condition at time of disposition: Good Admit: Yes - Referrals Referrals: Clare Rodriguez MD [Primary Care Provider] - - Patient Instructions - Post Discharge Activity
[2017-11-27] MEDS: SODIUM CHLORIDE 1,000 ML IV SCH (11:40)
--- NOTE | 2017-11-27 16:07 | HP ---
CHIEF COMPLAINT: Abdominal pain PCP- Dr Michael Norman- Dr. Linton/Dr. Jean Baptiste HISTORY OF PRESENT ILLNESS: 67 year-old female with a PMH significant for HTN, HLD, diabetes, COPD, recurrent diverticulitis, depression and anxiety. This is the fourth hospitalization for this patient for recurrent diverticulitis since August 2017. Today bhat her third visit to the ED in 36 hours for complaint of abdominal pain. Patient has met with surgeon at [facility] for a planned sigmoidectomy. Date not yet scheduled. Recent Travel: No PAST MEDICAL HISTORY: Hypertension Hyperlipidemia Diabetes COPD Recurrent diverticulitis Depression/anxiety PAST SURGICAL HISTORY: MANUEL Left ankle ORIF Right breast cyst removal Social History: Smoking: Former Alcohol: No Drugs: No Family History: Father lung cancer; mother 88 of [place] Allergies No Known Drug Allergies Allergy (Verified 11/27/17 05:29) CATS Allergy (Uncoded 11/26/17 18:00) HOME MEDICATIONS: Medication Instructions Recorded Quetiapine Fumarate [Seroquel -] 12.5 mg PO HS 03/01/15 Rosuvastatin Calcium [Crestor] 10 mg PO HS 03/01/15 Zolpidem Tartrate [Ambien] 10 mg PO HS PRN #7 tablet MDD 1 12/02/16 Lactobacillus Acidophilus [Bacid -] 1 tab PO DAILY tab 10/11/17 Atenolol [Tenormin -] 25 mg PO DAILY #30 tablet 10/18/17 Acetaminophen [Tylenol .Regular 650 mg PO Q6H PRN tablet 11/14/17 Strength -] Levofloxacin [Levaquin -] 500 mg PO DAILY #7 tablet 11/14/17 Metronidazole [Flagyl -] 500 mg PO TID #21 tablet 11/14/17 Tramadol HCl 50 mg PO BID PRN #10 tablet MDD 11/25/17 100mg REVIEW OF SYSTEMS CONSTITUTIONAL: +weight loss, food intolerance Absent: fever, chills, diaphoresis, generalized weakness, malaise HEENT: Absent: rhinorrhea, nasal congestion, throat pain, throat swelling, difficulty swallowing, mouth swelling, ear pain, eye pain, visual changes CARDIOVASCULAR: Absent: chest pain, syncope, palpitations, irregular heart rate, lightheadedness , peripheral edema RESPIRATORY: Absent: cough, shortness of breath, dyspnea with exertion, orthopnea, wheezing, stridor, hemoptysis GASTROINTESTINAL: +abdominal pain +diarrhea Absent: abdominal distension, nausea, vomiting, constipation, melena, hematochezia GENITOURINARY: Absent: dysuria, frequency, urgency, hesitancy, hematuria, flank pain, genital pain MUSCULOSKELETAL: Absent: myalgia, arthralgia, joint swelling, back pain, neck pain SKIN: Absent: rash, itching, pallor HEMATOLOGIC/IMMUNOLOGIC: Absent: easy bleeding, easy bruising, lymphadenopathy, frequent infections ENDOCRINE: Absent: unexplained weight gain, unexplained weight loss, heat intolerance, cold intolerance NEUROLOGIC: Absent: headache, focal weakness or paresthesias, dizziness, unsteady gait, seizure, mental status changes, bladder or bowel incontinence PSYCHIATRIC: Absent: anxiety, depression, suicidal or homicidal ideation, hallucinations. PHYSICAL EXAMINATION Vital Signs - 24 hr 11/27/17 11/27/17 11/27/17 05:36 09:30 14:26 Temperature 98.1 F 98.2 F Pulse Rate 94 H Pulse Rate [ 84 86 Apical] Respiratory 18 18 16 Rate Blood Pressure 128/78 Blood Pressure 134/72 123/77 [Arm] O2 Sat by Pulse 97 97 97 Oximetry (%) GENERAL: Awake, alert, and fully oriented, in no acute distress. HEAD: Normal with no signs of trauma. EYES: Pupils equal, round and reactive to light, extraocular movements intact, sclera anicteric, conjunctiva clear. No lid lag. EARS, NOSE, THROAT: Ears normal, nares patent, oropharynx clear without exudates. Moist mucous membranes. NECK: Normal range of motion, supple without lymphadenopathy, JVD, or masses. LUNGS: Breath sounds equal, clear to auscultation bilaterally. No wheezes, and no crackles. No accessory muscle use. HEART: Regular rate and rhythm, normal S1 and S2 without murmur, rub or gallop. ABDOMEN: Soft, nontender, not distended, normoactive bowel sounds, no guarding, no rebound, no masses. MUSCULOSKELETAL: Normal range of motion at all joints. No bony deformities or tenderness. No CVA tenderness. UPPER EXTREMITIES: 2+ pulses, warm, well-perfused. No cyanosis. No clubbing. No peripheral edema. LOWER EXTREMITIES: 2+ pulses, warm, well-perfused. No calf tenderness. 1+ bilateral edema NEUROLOGICAL: Cranial nerves II-XII intact. Normal speech. Laboratory Results - last 24 hr 11/27/17 11/27/17 11/27/17 05:50 05:50 05:50 WBC 9.4 D RBC 4.37 Hgb 12.4 Hct 37.9 MCV 86.7 MCH 28.3 MCHC 32.6 RDW 14.8 Plt Count 440 H D MPV 8.6 Neutrophils % 62.6 Lymphocytes % 28.3 Monocytes % 7.3 Eosinophils % 1.2 Basophils % 0.6 Sodium 140 Potassium 4.5 Chloride 105 Carbon Dioxide 28 Anion Gap 7 L BUN 16 Creatinine 0.7 Creat Clearance w eGFR > 60 Random Glucose 140 H Calcium 8.5 Total Bilirubin 0.3 AST 9 L ALT 15 Alkaline Phosphatase 72 Total Protein 6.6 Albumin 3.3 L Urine Color Yellow Urine Appearance Clear Urine pH 5.0 D Ur Specific [place] 1.023 Urine Protein Negative Urine Glucose (UA) Negative Urine Ketones Negative Urine Blood Negative Urine Nitrite Negative Urine Bilirubin Negative Urine Urobilinogen Negative Ur Leukocyte Esterase 2+ H Urine WBC (Auto) 13 Urine RBC (Auto) 1 Ur Epithelial Cells Rare Hyaline Casts 1 Urine Mucus Many ASSESSMENT/PLAN: 67 year-old female with a PMH significant for HTN, HLD, diabetes, COPD, recurrent diverticulitis, depression and anxiety. This is the fourth hospitalization for this patient for recurrent diverticulitis since August 2017. Today bhat her third visit to the ED in 36 hours for complaint of abdominal pain. Patient has met with surgeon at [facility] for a planned sigmoidectomy. Date not yet scheduled. Recurrent sigmoid diverticulitis - 11/17 CTAP: acute diverticulitis again seen in distal sigmoid colon with decreased surrounding inflammatory changes and decreased size of adjacent phlegmon; no drainable abscess - had been on PO levaquin and flagyl since last discharge on 11/14; failed outpatient therapy - start ceftriaxone and IV flagyl - Tylenol, morphine and ultram PRN - contact Dr. Schneider, colorectal surgeon, [facility], Hypertension - BP stable - continue home atenolol Hyperlipidemia - cont home Crestor Depression - continue home seroquel, ambien COPD - stable DVT prophylaxis: SCDs, oob, ambulation; hold chemical prophylaxis for now for possible surgical intervention Dispo: continues to require inpatient care. Full code. Visit type - Emergency Visit Emergency Visit: Yes ED Registration Date: 11/27/17 Care time: The patient presented to the Emergency Department on the above date and was hospitalized for further evaluation of their emergent condition. - New Patient This patient is new to me today: Yes Date on this admission: 11/27/17 - Critical Care Critical Care patient: No
[2017-11-27 16:16] VITALS: BMI 40.8
[2017-11-27] MEDS ORDERED: PT OWN MED DRAWER 7, Y5N ONE (17:25)
[2017-11-27] MEDS: METRONIDAZOLE PREMIXED IVPB 250 MG/50 ML MG IVPB SCH (17:48)
[2017-11-27] MEDS: ROSUVASTATIN CA 10 MG TABLET (FP) PO SCH (21:12)
[2017-11-27] MEDS: ZOLPIDEM TARTRATE 5 MG TABLET PO PRN (21:12)
[2017-11-27] MEDS: QUEtiapine FUMARATE 25 MG TABLET (FP) PO SCH (21:13)
[2017-11-27] MEDS: morphine CARPU-JECT 2 MG/1 ML DISP.SYRIN IVPUSH PRN (21:16)
[2017-11-28] MEDS ORDERED: PT OWN MED DRAWER 7, Y5N ONE ×3 (01:34→17:10)
[2017-11-28] MEDS: METRONIDAZOLE PREMIXED IVPB 250 MG/50 ML MG IVPB SCH ×3 (01:49→17:25)
[2017-11-28 08:18] LABS: BASO % 0.7 % (0-2.0); EOS % 2.4 % (0-4.5); HEMOGLOBIN 12.4 GM/dl (10.7-15.3); LYMPH % 40.9 % (8-40); MCH 28.8 pg (25.7-33.7); MCHC 32.7 g/dl (32.0-36.0); MEAN CELL VOLUME 88.1 fl (80-96); MEAN PLT VOLUME 9.1 fl (7.5-11.1); MONO % 6.6 % (3.8-10.2); NEUT % 49.4 % (42.8-82.8); PLATELET COUNT 457 K/MM3 (134-434); RBC 4.31 M/mm3 (3.60-5.2); RDW 14.6 % (11.6-15.6)
[2017-11-28 08:25] LABS: ANION GAP 6 (8-16); BLOOD UREA NITROGEN 6 mg/dl (7-18); CALCIUM 9.2 mg/dl (8.4-10.2); CHLORIDE 102 mmol/L (98-107); CO2 27 mmol/L (22-28); CREATININE 0.6 mg/dl (0.6-1.3); GLUCOSE,RANDOM 117 mg/dl (74-106); POTASSIUM 4.2 mmol/L (3.5-5.1); SODIUM 135 mmol/L (136-145)
[2017-11-28] MEDS: LACTOBACILLUS ACIDOPHILUS 1 EACH TAB (FP) PO SCH (09:52)
[2017-11-28] MEDS: ATENOLOL 25 MG TABLET (FP) PO SCH (09:52)
[2017-11-28] MEDS: CEFTRIAXONE 1 G/50 ML PREMIX 50 ML IVPB SCH (09:52)
--- NOTE | 2017-11-28 10:31 | PN ---
Physical Exam: SUBJECTIVE: Patient seen and examined, reports intermittent abdominal pain, tolerating diet OBJECTIVE: 67 year-old female with a PMH significant for HTN, HLD, diabetes, COPD, recurrent diverticulitis, depression and anxiety. patient was admitted from the emergency department for recurrent diverticulitis (fifth admission within 1 year) Vital Signs Period Temp Pulse Resp BP Sys/Negron Pulse Ox Last 24 Hr 97.9 F-98.2 F 75-96 16-20 83-123/57-77 93-97 GENERAL: The patient is awake, alert, and fully oriented, in no acute distress. HEAD: Normal with no signs of trauma. EYES: PERRL, extraocular movements intact, sclera anicteric, conjunctiva clear. No ptosis. ENT: Ears normal, nares patent, oropharynx clear without exudates, moist mucous membranes. NECK: Trachea midline, full range of motion, supple. LUNGS: Breath sounds equal, clear to auscultation bilaterally, no wheezes, no crackles, no accessory muscle use. HEART: Regular rate and rhythm, S1, S2 without murmur, rub or gallop. ABDOMEN: Soft, obese, nontender, nondistended, hyperactive bowel sounds, no guarding, no rebound, no hepatosplenomegaly, no masses. EXTREMITIES: 2+ pulses, warm, well-perfused, no edema. NEUROLOGICAL: Cranial nerves II through XII grossly intact. Normal speech, gait not observed. PSYCH: Normal mood, normal affect. SKIN: Warm, dry, normal turgor, no rashes or lesions noted Laboratory Results - last 24 hr 11/28/17 11/28/17 07:28 07:28 WBC 7.0 RBC 4.31 Hgb 12.4 D Hct 38.0 D MCV 88.1 MCH 28.8 MCHC 32.7 RDW 14.6 Plt Count 457 H MPV 9.1 Neutrophils % 49.4 Lymphocytes % 40.9 H Monocytes % 6.6 Eosinophils % 2.4 Basophils % 0.7 Sodium 135 L Potassium 4.2 Chloride 102 Carbon Dioxide 27 Anion Gap 6 L BUN 6 L Creatinine 0.6 Random Glucose 117 H Calcium 9.2 Active Medications Generic Name Dose Route Start Last Admin Trade Name Freq PRN Reason Stop Dose Admin Acetaminophen 650 mg 11/27/17 11:20 Tylenol - PO Q6H PRN PAIN LEVEL 1 - 3 Atenolol 25 mg 11/28/17 10:00 11/28/17 09:52 Tenormin - PO 25 mg DAILY TITO Administration Sodium Chloride 1,000 mls @ 100 mls/hr 11/27/17 11:30 11/27/17 11:40 Normal Saline - IV 100 mls/hr ASDIR TITO Administration CEFTRIAXONE 1 G/50 ML PREMIX 50 mls @ 100 mls/hr 11/28/17 10:00 11/28/17 09: 52 Ceftriaxone 1 Gm-D5w Bag IVPB 100 mls/hr DAILY TITO Administration Metronidazole 250 mg in 50 mls @ 50 mls/hr 11/27/17 18:00 11/28/17 09:52 Flagyl 250mg Premixed Ivpb - IVPB 50 mls/hr Q8H-IV TITO Administration Lactobacillus Acidophilus 1 tab 11/28/17 10:00 11/28/17 09:52 Bacid - PO 1 tab DAILY TITO Administration Morphine Sulfate 2 mg 11/27/17 11:21 11/27/17 21:16 Morphine Injection - IVPUSH 2 mg Q4H PRN Administration PAIN LEVEL 7 - 10 Quetiapine Fumarate 12.5 mg 11/27/17 22:00 11/27/17 21:13 Seroquel - PO 12.5 mg HS TITO Administration Rosuvastatin Calcium 10 mg 11/27/17 22:00 11/27/17 21:12 Crestor - PO 10 mg HS TITO Administration Tramadol HCl 50 mg 11/27/17 11:20 Ultram - PO Q6H PRN PAIN LEVEL 4 - 6 Zolpidem Tartrate 5 mg 11/27/17 12:29 11/27/17 21:12 Ambien - PO 5 mg HS PRN Administration INSOMNIA IMAGING 11/17 CTAP: acute diverticulitis again seen in distal sigmoid colon with decreased surrounding inflammatory changes and decreased size of adjacent phlegmon; no drainable abscess ASSESSMENT/PLAN: 1) Recurrent sigmoid diverticulitis - continue ceftriaxone and IV flagyl - no leukocytosis, patient is afebrile - oxycodone, morphine and tylenol prn for pain - case discused with Colette Hathaway, [employer] for Dr. Schneider, colorectal surgeon, [facility], , patient did complete her first consultation with Dr Mosquera , however, patient needs to schedule pre-operative testing at [facility] to schedule surgery, copy of ct report of abd faxed to [facility] 2) Hypertension - BP stable at goal, continue home atenolol 3) Hyperlipidemia - cont home Crestor 4) Depression - continue home seroquel, ambien 5) COPD - no acute excerbation a this time, prn albuterol DVT prophylaxis: SCDs, oob, ambulation; heparin sq Dispo: continues to require inpatient care. Full code.
[2017-11-28] MEDS: SODIUM CHLORIDE 1,000 ML IV SCH (11:06)
[2017-11-28] MEDS: morphine CARPU-JECT 2 MG/1 ML DISP.SYRIN IVPUSH PRN (11:06)
[2017-11-28] MEDS: oxyCODONE HCL 5 MG TABLET PO PRN ×2 (13:46→21:22)
[2017-11-28] MEDS: ZOLPIDEM TARTRATE 5 MG TABLET PO PRN (21:20)
[2017-11-28] MEDS: QUEtiapine FUMARATE 25 MG TABLET (FP) PO SCH (21:21)
[2017-11-28] MEDS: ROSUVASTATIN CA 10 MG TABLET (FP) PO SCH (21:21)
[2017-11-28] MEDS ORDERED: HEPARIN NA (PORCINE) 5,000 UNITS/ML 1ML VIAL SQ SCH (22:00)
[2017-11-29] MEDS ORDERED: PT OWN MED DRAWER 7, Y5N ONE ×2 (01:27→09:49)
[2017-11-29] MEDS: METRONIDAZOLE PREMIXED IVPB 250 MG/50 ML MG IVPB SCH ×2 (01:44→10:02)
[2017-11-29 05:53] VITALS: BP 131/61; PULSE 64; TEMP 98.6
--- NOTE | 2017-11-29 08:08 | PN ---
Physical Exam: SUBJECTIVE: Patient seen and examined. Has no abdominal pain. OBJECTIVE: Vital Signs Period Temp Pulse Resp BP Sys/Negron Pulse Ox Last 24 Hr 97.5 F-98.6 F 64-69 16-19 106-131/60-64 92-98 GENERAL: Awake, alert, and fully oriented, in no acute distress. LUNGS: Breath sounds equal, clear to auscultation bilaterally. No wheezes, and no crackles. No accessory muscle use. HEART: Regular rate and rhythm, normal S1 and S2 ABDOMEN: Soft, nontender, not distended, normoactive bowel sounds, no guarding, no rebound, no masses. MUSCULOSKELETAL: Normal range of motion at all joints. No bony deformities or tenderness. No CVA tenderness. UPPER EXTREMITIES: 2+ pulses, warm, well-perfused. No cyanosis. No clubbing. No peripheral edema. LOWER EXTREMITIES: 2+ pulses, warm, well-perfused. No calf tenderness. 1+ bilateral edema. Bilateral knees: no swelling, no erythema, no warmth NEUROLOGICAL: Cranial nerves II-XII intact. Normal speech. Laboratory Results - last 24 hr 11/28/17 11/28/17 07:28 07:28 WBC 7.0 RBC 4.31 Hgb 12.4 D Hct 38.0 D MCV 88.1 MCH 28.8 MCHC 32.7 RDW 14.6 Plt Count 457 H MPV 9.1 Neutrophils % 49.4 Lymphocytes % 40.9 H Monocytes % 6.6 Eosinophils % 2.4 Basophils % 0.7 Sodium 135 L Potassium 4.2 Chloride 102 Carbon Dioxide 27 Anion Gap 6 L BUN 6 L Creatinine 0.6 Random Glucose 117 H Calcium 9.2 Active Medications Generic Name Dose Route Start Last Admin Trade Name Freq PRN Reason Stop Dose Admin Acetaminophen 650 mg 11/27/17 11:20 11/28/17 13:44 Tylenol - PO 650 mg Q6H PRN Administration PAIN LEVEL 1 - 3 Atenolol 25 mg 11/28/17 10:00 11/28/17 09:52 Tenormin - PO 25 mg DAILY TITO Administration Heparin Sodium (Porcine) 5,000 unit 11/28/17 22:00 11/28/17 21:21 Heparin - SQ 5,000 unit BID TITO Administration Sodium Chloride 1,000 mls @ 100 mls/hr 11/27/17 11:30 11/28/17 11:06 Normal Saline - IV 100 mls/hr ASDIR TITO Administration CEFTRIAXONE 1 G/50 ML PREMIX 50 mls @ 100 mls/hr 11/28/17 10:00 11/28/17 09: 52 Ceftriaxone 1 Gm-D5w Bag IVPB 100 mls/hr DAILY TITO Administration Metronidazole 250 mg in 50 mls @ 50 mls/hr 11/27/17 18:00 11/29/17 01:44 Flagyl 250mg Premixed Ivpb - IVPB 50 mls/hr Q8H-IV TITO Administration Lactobacillus Acidophilus 1 tab 11/28/17 10:00 11/28/17 09:52 Bacid - PO 1 tab DAILY TITO Administration Morphine Sulfate 2 mg 11/27/17 11:21 11/28/17 11:06 Morphine Injection - IVPUSH 2 mg Q4H PRN Administration PAIN LEVEL 7 - 10 Oxycodone HCl 5 mg 11/28/17 13:31 11/28/17 21:22 Roxicodone - PO 5 mg Q6H PRN Administration PAIN LEVEL 7 - 10 Quetiapine Fumarate 12.5 mg 11/27/17 22:00 11/28/17 21:21 Seroquel - PO 12.5 mg HS TITO Administration Rosuvastatin Calcium 10 mg 11/27/17 22:00 11/28/17 21:21 Crestor - PO 10 mg HS TITO Administration Zolpidem Tartrate 5 mg 11/27/17 12:29 11/28/17 21:20 Ambien - PO 5 mg HS PRN Administration INSOMNIA ASSESSMENT/PLAN 67 year-old female with a PMH significant for HTN, HLD, diabetes, COPD, recurrent diverticulitis, depression and anxiety. This is the fourth hospitalization for this patient for recurrent diverticulitis since August 2017. Recurrent sigmoid diverticulitis - 11/17 CTAP: acute diverticulitis again seen in distal sigmoid colon with decreased surrounding inflammatory changes and decreased size of adjacent phlegmon; no drainable abscess - had been on PO levaquin and flagyl since last discharge on 11/14; failed outpatient therapy - discharge today on levaquin PO 500mg x 7 days, metronidazole 500mg TID x 7 days - Tylenol, morphine and ultram PRN - patient has had initial consultation with Dr. Schneider, colorectal surgeon, [facility], ; needs further pre-op workup Hypertension - BP stable - continued home atenolol Hyperlipidemia - continued home Crestor Depression - continued home edyta garcia COPD - stable
[2017-11-29] MEDS: CEFTRIAXONE 1 G/50 ML PREMIX 50 ML IVPB SCH (09:00)
[2017-11-29] MEDS ORDERED: ENOXAPARIN NA (PORCINE) 40 MG/0.4 ML DISP.SYRIN SQ SCH (10:00)
[2017-11-29] MEDS: ATENOLOL 25 MG TABLET (FP) PO SCH (10:01)
[2017-11-29] MEDS: LACTOBACILLUS ACIDOPHILUS 1 EACH TAB (FP) PO SCH (10:01)
[2017-11-29] MEDS: METRONIDAZOLE 500 MG PREMIXED 500 MG/100 ML MG IVPB ONE (10:02)
--- NOTE | 2017-11-29 10:36 | DS ---
Physical Exam: SUBJECTIVE: Patient seen and examined OBJECTIVE: Vital Signs Period Temp Pulse Resp BP Sys/Negron Pulse Ox Last 24 Hr 97.5 F-98.6 F 64-69 16-19 106-131/60-64 92-98 PHYSICAL EXAM GENERAL: Awake, alert, and fully oriented, in no acute distress. LUNGS: Breath sounds equal, clear to auscultation bilaterally. No wheezes, and no crackles. No accessory muscle use. HEART: Regular rate and rhythm, normal S1 and S2 ABDOMEN: Soft, nontender, not distended, normoactive bowel sounds, no guarding, no rebound, no masses. MUSCULOSKELETAL: Normal range of motion at all joints. No bony deformities or tenderness. No CVA tenderness. UPPER EXTREMITIES: 2+ pulses, warm, well-perfused. No cyanosis. No clubbing. No peripheral edema. LOWER EXTREMITIES: 2+ pulses, warm, well-perfused. No calf tenderness. 1+ bilateral edema. Bilateral knees: no swelling, no erythema, no warmth NEUROLOGICAL: Cranial nerves II-XII intact. Normal speech. LABS CBCD WBC 7.0 K/mm3 (4.0-10.8) 11/28/17 07:28 RBC 4.31 M/mm3 (3.60-5.2) 11/28/17 07:28 Hgb 12.4 GM/dl (10.7-15.3) D 11/28/17 07:28 Hct 38.0 % (32.4-45.2) D 11/28/17 07:28 MCV 88.1 fl (80-96) 11/28/17 07:28 MCHC 32.7 g/dl (32.0-36.0) 11/28/17 07:28 RDW 14.6 % (11.6-15.6) 11/28/17 07:28 Plt Count 457 K/MM3 (134-434) H 11/28/17 07:28 MPV 9.1 fl (7.5-11.1) 11/28/17 07:28 CMP Sodium 135 mmol/L (136-145) L 11/28/17 07:28 Potassium 4.2 mmol/L (3.5-5.1) 11/28/17 07:28 Chloride 102 mmol/L (98-107) 11/28/17 07:28 Carbon Dioxide 27 mmol/L (22-28) 11/28/17 07:28 Anion Gap 6 (8-16) L 11/28/17 07:28 BUN 6 mg/dl (7-18) L 11/28/17 07:28 Creatinine 0.6 mg/dl (0.6-1.3) 11/28/17 07:28 Creat Clearance w eGFR > 60 (>60) 11/27/17 05:50 Calcium 9.2 mg/dl (8.4-10.2) 11/28/17 07:28 Total Bilirubin 0.3 mg/dL (0.2-1.0) 11/27/17 05:50 AST 9 U/L (15-37) L 11/27/17 05:50 ALT 15 U/L (12-78) 11/27/17 05:50 Alkaline Phosphatase 72 U/L (45-117) 11/27/17 05:50 Total Protein 6.6 g/dl (6.4-8.2) 11/27/17 05:50 Albumin 3.3 g/dl (3.4-5.0) L 11/27/17 05:50 HOSPITAL COURSE: Date of Admission:11/27/17 Date of Discharge: 11/29/17 Pre hospital course 67 year-old female with a PMH significant for HTN, HLD, diabetes, COPD, recurrent diverticulitis, depression and anxiety. This is the fourth hospitalization for this patient for recurrent diverticulitis since August 2017. Today bhat her third visit to the ED in 36 hours for complaint of abdominal pain. Patient has met with surgeon at [facility] for a planned sigmoidectomy. Date not yet scheduled. Hospital course Recurrent sigmoid diverticulitis - 11/17 CTAP: acute diverticulitis again seen in distal sigmoid colon with decreased surrounding inflammatory changes and decreased size of adjacent phlegmon; no drainable abscess - had been on PO levaquin and flagyl since last discharge on 11/14; failed outpatient therapy; Tylenol, morphine and ultram PRN - treated with ceftriaxone and IV flagyl with complete resolution of pain - discharge on PO levofloxacin and PO metronidazole x 7 days - patient has had initial consultation with Dr. Schneider, colorectal surgeon, [facility], ; needs further pre-op workup Hypertension - BP stable - continue home atenolol Hyperlipidemia - cont home Crestor Depression - continue home seroquel, ambien COPD - stable Minutes to complete discharge: 35 Discharge Summary Reason For Visit: DIVERTICULITIS Current Active Problems Diverticulitis (Acute) Condition: Good - Instructions Referrals: Clare Rodriguez MD [Primary Care Provider] - - Home Medications Comprehensive Discharge Medication List: Ambulatory Orders Quetiapine Fumarate [Seroquel -] 12.5 mg PO HS 03/01/15 Rosuvastatin Calcium [Crestor] 10 mg PO HS 03/01/15 Zolpidem Tartrate [Ambien] 10 mg PO HS PRN #7 tablet MDD 1 12/02/16 Lactobacillus Acidophilus [Bacid -] 1 tab PO DAILY tab 10/11/17 Atenolol [Tenormin -] 25 mg PO DAILY #30 tablet 10/18/17 Acetaminophen [Tylenol .Regular Strength -] 650 mg PO Q6H PRN tablet 11/14/17 Levofloxacin [Levaquin -] 500 mg PO DAILY #7 tablet 11/14/17 Metronidazole [Flagyl -] 500 mg PO TID #21 tablet 11/14/17 Tramadol HCl 50 mg PO BID PRN #10 tablet MDD 100mg 11/25/17 This patient is new to me today: No Emergency Visit: Yes ED Registration Date: 11/27/17 Care time: The patient presented to the Emergency Department on the above date and was hospitalized for further evaluation of their emergent condition. Critical Care patient: No - Discharge Referral Referred to [facility] No
== END 2017-11-29 13:56 | disposition home or self-care (01) | DRG 392 ==
LOC: FER 05:27 → FM/S 11:21 → OBSVTOIN 13:05 → FM/S 13:05 → UNDOADMOB 13:05 → INTOOBSV 13:05
PROVIDERS: ADMIT Internal Medicine; ATTEND Nurse Practitioner Family
DX: K57.32 Diverticulitis of large intestine without perforation or abscess without bleeding (principal); Z68.41 Body mass index [BMI] 40.0-44.9, adult; R73.03 Prediabetes; E78.5 Hyperlipidemia, unspecified; I10 Essential (primary) hypertension; F32.9 Major depressive disorder, single episode, unspecified; I45.81 Long QT syndrome; Z87.891 Personal history of nicotine dependence; J44.9 Chronic obstructive pulmonary disease, unspecified; F41.9 Anxiety disorder, unspecified; E66.9 Obesity, unspecified
CPT/HCPCS: 36415; 74177-TC; 80048; 80053; 81003; 81015; 85025; 87086; 99282-25; G0378; J1644

== ENCOUNTER 2017-12-06 21:55 | Emergency (ER) | payer BC ==
[2017-12-06 22:00] VITALS: BP 134/83; PULSE 80; TEMP 98.5; BMI 40.3
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
[2017-12-06] MEDS ORDERED: morphine CARPU-JECT 2 MG/1 ML DISP.SYRIN IM ONE (22:37)
== END 2017-12-07 01:30 | disposition home or self-care (01) ==
LOC: FER 21:55
PROC: 3E023NZ Introduction of Analgesics, Hypnotics, Sedatives into Muscle, Percutaneous Approach (ICD-10-PCS; principal; 2017-12-06)
DX: R10.30 Lower abdominal pain, unspecified (principal); Z87.891 Personal history of nicotine dependence; K57.92 Diverticulitis of intestine, part unspecified, without perforation or abscess without bleeding; J42 Unspecified chronic bronchitis; I10 Essential (primary) hypertension; F32.9 Major depressive disorder, single episode, unspecified; R73.03 Prediabetes
CPT/HCPCS: 99282-25

== ENCOUNTER 2017-12-13 21:35 | Emergency (ER) | payer BC ==
[2017-12-13 21:48] VITALS: BP 138/77; PULSE 97; TEMP 98.1; BMI 32.3
[2017-12-13] MEDS ORDERED: metroNIDAZOLE 250 MG TABLET PO ONE (23:46)
[2017-12-13] MEDS ORDERED: traMADol HCL 50 MG TABLET PO ONE (23:46)
--- NOTE | 2017-12-13 23:46 | PDOC ---
Attending Attestation - HPI HPI: 12/13/17 23:47 This 67-year-old woman with a significant past medical history of hypertension, chronic bronchitis, diverticular disease and depression, who presents to the emergency department with complaint of abdominal pain and constipation this evening. The patient denies chest pain, shortness of breath, headache and dizziness. The patient denies fever, chills, nausea, vomit, diarrhea. The patient denies dysuria, frequency, urgency and hematuria. Allergies: NKDA PCP: Dr. Clare Rodriguez - Medical Decision Making 12/13/17 23:47 Documentation prepared by Michelle Araya, acting as medical record assistant for Bradford Tyson DO. <Michelle Araya - Last Filed: 12/13/17 23:47> - Resident Resident Name: Zia Bacon - ED Attending Attestation I have performed the following: I have examined & evaluated the patient, The case was reviewed & discussed with the resident, I agree w/resident's findings & plan, Exceptions are as noted - Physicial Exam PE: 12/13/17 23:51 Physical Exam General Appearance: Yes: Appropriately Dressed. No: Apparent Distress, Intoxicated HEENT: positive: EOMI, DARNELL, Normal ENT Inspection, Normal Voice, TMs Normal, Pharynx Normal. negative: Pale Conjunctivae, Photophobia, Scleral Icterus (R), Scleral Icterus (L) Neck: positive: Trachea midline, Normal Thyroid, Supple. negative: Tender, Rigid, Carotid bruit, Stridor, Lymphadenopathy (R), Lymphadenopathy (L), Thyromegaly Respiratory/Chest: positive: Lungs Clear, Normal Breath Sounds. negative: Chest Tender, Respiratory Distress, Accessory Muscle Use, Labored Respiration, RES, Crackles, Rales, Rhonchi, Stridor, Wheezing, Dullness Cardiovascular: positive: Regular Rhythm, Regular Rate, S1, S2. negative: Edema , JVD, Murmur, Bradycardia, Tachycardia Vascular Pulses: Dorsalis-Pedis (R): 2+, Doralis-Pedis (L): 2+ Gastrointestinal/Abdominal: positive: Normal Bowel Sounds, Flat, Soft. negative : Tender, Organomegaly, Pulsatile Mass, Increased Bowel Sounds, Decreased BS, Distended, Guarding, Rebound, Hernia, Hepatomegaly, Spleenomegaly Lymphatic: negative: Adenopathy, Tenderness Musculoskeletal: positive: Normal Inspection. negative: CVA Tenderness, Decreased Range of Motion Extremity: positive: Normal Capillary Refill, Normal Inspection, Normal Range of Motion, Pelvis Stable. negative: Tender, Pedal Edema, Swelling, Erythema Integumentary: positive: Normal Color, Dry, Warm. 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 negative: EOM Palsy, Facial Droop, Sensory Deficit - Medical Decision Making 12/13/17 23:51 Pt treated and released <Bradford Tyson - Last Filed: 12/13/17 23:51>
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
[2017-12-14] MEDS ORDERED: traMADol HCL 50 MG TABLET PO ONE (00:49)
[2017-12-14] MEDS ORDERED: metroNIDAZOLE 250 MG TABLET ONE (00:54)
[2017-12-14] MEDS ORDERED: traMADol HCL 50 MG TABLET ONE (00:54)
== END 2017-12-14 01:33 | disposition home or self-care (01) ==
LOC: JER 21:35
DX: K59.03 Drug induced constipation (principal); T40.2X5A Adverse effect of other opioids, initial encounter; Y92.038 Other place in apartment as the place of occurrence of the external cause; I10 Essential (primary) hypertension; E78.00 Pure hypercholesterolemia, unspecified; E11.9 Type 2 diabetes mellitus without complications; F32.9 Major depressive disorder, single episode, unspecified; I45.81 Long QT syndrome; Z87.19 Personal history of other diseases of the digestive system
CPT/HCPCS: 99282-25

== ENCOUNTER → 2019-02-12 | Day surgery (SDC) | payer OTHER, BC ==
--- NOTE | 2019-02-13 17:42 | PATH ---
Cytology Non-Gynecological Report Patient Name: INDRA MELTON [facility]. Rec. #: [id number] /Age/Gender: 1950 (Age: 68) / F Account: [id number] Location: RADIOLOGY ULTRA Taken: 02/12/2019 Received: 02/12/2019 Reported: 02/13/2019 Physicians: Erma Ann M.D. Specimen(s) Received RIGHT THYROID FNA Clinical History Right thyroid nodule, 2.42 x 1.65 x 2.21 cm Final Diagnosis THYROID, RIGHT, FINE NEEDLE ASPIRATION: UNSATISFACTORY FOR EVALUATION. BETHESDA CLASS I: NON-DIAGNOSTIC. RARE FOLLICULAR CELLS AND SCANT COLLOID PRESENT. Comment: The specimen has insufficient follicular cell clusters and/or colloid; and suboptimal for complete cytopathologic evaluation according to [facility] for Reporting Thyroid FNA. If the nodule has worrisome ultrasound imaging properties, suggest repeat FNA, as warranted. Electronically Signed Beryl Darden M.D. Gross Description Received are eight direct smears, four of which are air-dried and Diff-Quik stained, and four of which are alcohol fixed and Pap stained. Also received is 20 ml of bloody formalin from which one cellblock is prepared.
== END | disposition home or self-care (01) ==
LOC: JRADIR 10:02
PROVIDERS: ATTEND Internal Medicine Endocrinology, Diabetes & Metabolism
PROC: 0G9K3ZX Drainage of Thyroid Gland, Percutaneous Approach, Diagnostic (ICD-10-PCS; principal; 2019-02-12)
DX: E04.1 Nontoxic single thyroid nodule (principal)
CPT/HCPCS: 60100; 76942-TC; 88173; 88305-TC

== ENCOUNTER 2019-02-22 14:19 | Emergency (ER) | payer OTHER, BC ==
[2019-02-22 14:27] VITALS: BP 129/81; PULSE 93; TEMP 99.2; BMI 46.6
[2019-02-22] MEDS ORDERED: ALBUTEROL SO4 2.5/IPRATROPIUM 0.5 INH SOL 3 ML VIAL.NEB. NEB ONE ×5 (14:29→15:28)
[2019-02-22] MEDS ORDERED: methylPREDNISolone NA SUCC 125 MG/2 ML VIAL IVPB ONE (14:29)
[2019-02-22] MEDS ORDERED: AZITHROMYCIN 250 MG TABLET PO ONE (14:43)
[2019-02-22] MEDS ORDERED: methylPREDNISolone NA SUCC 125 MG/2 ML VIAL ONE (14:54)
[2019-02-22] MEDS ORDERED: AZITHROMYCIN 250 MG TABLET ONE (14:54)
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
[2019-02-22 17:20] LABS: HEMATOCRIT 41.7 % (32.4-45.2); HEMOGLOBIN 13.6 GM/dl (10.7-15.3); MCHC 32.6 g/dl (32.0-36.0); MEAN PLT VOLUME 9.4 fl (7.5-11.1); PLATELET COUNT 243 K/MM3 (134-434); RBC 4.69 M/mm3 (3.60-5.2); RDW 13.1 % (11.6-15.6); WHITE BLOOD COUNT 14.3 K/mm3 (4.0-10.8)
[2019-02-22 17:26] LABS: ALBUMIN 3.9 g/dl (3.4-5.0); ALK PHOS 84 U/L (45-117); ANION GAP 15 MMOL/L (8-16); BILIRUBIN,TOTAL 0.7 mg/dl (0.2-1); BLOOD UREA NITROGEN 14 mg/dl (7-18); CALCIUM 9.4 mg/dl (8.5-10); CHLORIDE 99 mmol/L (98-107); CO2 22 mmol/L (21-32); CREATININE 0.6 mg/dl (0.55-1.3); GLUCOSE,RANDOM 166 mg/dl (74-106); POTASSIUM 4.2 mmol/L (3.5-5.1); SGOT/AST 21 U/L (15-37); SGPT/ALT 13 U/L (13-61); SODIUM 136 mmol/L (136-145)
[2019-02-22 21:38] LABS: PLATELET ESTIMATE ADEQUATE
--- NOTE | 2019-02-23 15:17 | EKG ---
Test Reason : Blood Pressure : / mmHG Vent. Rate : 095 BPM Atrial Rate : 095 BPM P-R Int : 240 ms QRS Dur : 078 ms QT Int : 360 ms P-R-T Axes : 006 020 042 degrees QTc Int : 452 ms SINUS RHYTHM WITH 1ST DEGREE A-V BLOCK OTHERWISE NORMAL ECG WHEN COMPARED WITH ECG OF 14-NOV-2017 10:58, NO SIGNIFICANT CHANGE WAS FOUND Confirmed by HEIDI GRIFFITHS MD ([id number]) on 02/23/2019 3:17:18 PM Referred By: MD MALONE Confirmed By:HEIDI GRIFFITHS MD
== END 2019-02-22 17:30 | disposition home or self-care (01) ==
LOC: SUPCPDRO 14:19 → FER 14:19
PROC: 3E0F7GC Introduction of Other Therapeutic Substance into Respiratory Tract, Via Natural or Artificial Opening (ICD-10-PCS; principal; 2019-02-22)
PROC: 3E033GC Introduction of Other Therapeutic Substance into Peripheral Vein, Percutaneous Approach (ICD-10-PCS; 2019-02-22)
DX: J44.9 Chronic obstructive pulmonary disease, unspecified (principal); J40 Bronchitis, not specified as acute or chronic; J18.1 Lobar pneumonia, unspecified organism; I10 Essential (primary) hypertension; E78.5 Hyperlipidemia, unspecified; F32.9 Major depressive disorder, single episode, unspecified
CPT/HCPCS: 36415; 71045-TC-FY; 80053; 82550; 84484; 85025; 87040; 87070; 87880; 93005; 94640; 96374; 96375; 99282-25

== ENCOUNTER 2019-02-25 17:45 | Inpatient (IN) | payer BC, OTHER ==
[2019-02-25 17:58] VITALS: BMI 46.6
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
[2019-02-25] MEDS ORDERED: methylPREDNISolone NA SUCC 125 MG/2 ML VIAL IVPB ONE (18:08)
[2019-02-25] MEDS ORDERED: ALBUTEROL SO4 2.5/IPRATROPIUM 0.5 INH SOL 3 ML VIAL.NEB. NEB ONE ×2 (18:15)
[2019-02-25] MEDS ORDERED: MAGNESIUM SULF 50% (8.12 MEQ/2 ML-1 GM VIAL) IVPB ONE (18:23)
[2019-02-25 18:47] LABS: BASO % 0.2 % (0-2.0); EOS % 1.5 % (0-4.5); HEMATOCRIT 38.7 % (32.4-45.2); HEMOGLOBIN 12.8 GM/dl (10.7-15.3); LYMPH % 15.7 % (8-40); MCH 29.5 pg (25.7-33.7); MEAN CELL VOLUME 89.4 fl (80-96); MEAN PLT VOLUME 8.7 fl (7.5-11.1); MONO % 5.6 % (3.8-10.2); PLATELET COUNT 414 K/MM3 (134-434); RBC 4.32 M/mm3 (3.60-5.2); RDW 13.6 % (11.6-15.6); WHITE BLOOD COUNT 10.5 K/mm3 (4.0-10.8)
[2019-02-25] MEDS: ALBUTEROL SO4 2.5/IPRATROPIUM 0.5 INH SOL 3 ML VIAL.NEB. NEB SCH ×4 (18:55→20:17)
[2019-02-25] MEDS ORDERED: MAGNESIUM 1GM/D5W - 2 GM/200 ML IVPB IVPB ONE (19:03)
[2019-02-25] MEDS ORDERED: methylPREDNISolone NA SUCC 125 MG/2 ML VIAL ONE (19:03)
[2019-02-25 19:07] LABS: ALBUMIN 3.5 g/dl (3.4-5.0); ALK PHOS 63 U/L (45-117); ANION GAP 12 MMOL/L (8-16); BILIRUBIN,TOTAL 0.4 mg/dl (0.2-1); BLOOD UREA NITROGEN 23 mg/dl (7-18); CALCIUM 8.6 mg/dl (8.5-10); CHLORIDE 99 mmol/L (98-107); CO2 24 mmol/L (21-32); CREATININE 0.8 mg/dl (0.55-1.3); GLUCOSE,RANDOM 143 mg/dl (74-106); MAGNESIUM 1.9 mg/dL (1.8-2.4); POTASSIUM 4.2 mmol/L (3.5-5.1); SGOT/AST 20 U/L (15-37); SGPT/ALT 19 U/L (13-61); SODIUM 135 mmol/L (136-145); TOT PROT 6.3 g/dl (6.4-8.2)
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
[2019-02-25] MEDS ORDERED: MAGNESIUM SULF 50% (8.12 MEQ/2 ML-1 GM VIAL) ONE (19:18)
[2019-02-25] MEDS ORDERED: AZITHROMYCIN IVPB 500 MG in DEXTROSE 5%-WATER - 250 ML IVPB ONE (19:25)
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
[2019-02-25] MEDS ORDERED: AZITHROMYCIN 500 MG VIAL IVPB ONE (19:48)
[2019-02-25] MEDS ORDERED: cefTRIAXone SODIUM 1 GM VIAL ONE ×2 (19:48)
[2019-02-25] MEDS ORDERED: CEFTRIAXONE 1,000 MG in DEXTROSE 5%-WATER - 50 ML IVPB ONE (20:12)
[2019-02-25 22:24] LABS: N-TERMINAL BNP 806.2 pg/ml (5-125)
[2019-02-25] MEDS ORDERED: SULFAMETHOXAZOLE 80 MG/TRIMETHOPRIM 16 MG/ML VIAL IVPB ONE (22:33)
[2019-02-25] MEDS ORDERED: HEPARIN NA (PORCINE) 5,000 UNITS/ML 1ML VIAL ONE (22:45)
[2019-02-25] MEDS: HEPARIN NA (PORCINE) 5,000 UNITS/ML 1ML VIAL SQ SCH (22:46)
[2019-02-26] MEDS ORDERED: ZOLPIDEM TARTRATE 5 MG TABLET PO PRN (00:09)
[2019-02-26] MEDS ORDERED: ROSUVASTATIN CA 10 MG TABLET (FP) PO SCH (00:11)
[2019-02-26] MEDS ORDERED: QUEtiapine FUMARATE 25 MG TABLET (FP) PO SCH (00:11)
[2019-02-26] MEDS: methylPREDNISolone NA SUCC 40 MG/1 ML VIAL IVPUSH SCH ×2 (05:00→09:30)
[2019-02-26] MEDS ORDERED: ALBUTEROL SO4 2.5/IPRATROPIUM 0.5 INH SOL 3 ML VIAL.NEB. NEB SCH (08:00)
[2019-02-26 08:31] LABS: ANION GAP 10 MMOL/L (8-16); BLOOD UREA NITROGEN 24 mg/dl (7-18); CALCIUM 8.7 mg/dl (8.5-10); CHLORIDE 103 mmol/L (98-107); CO2 24 mmol/L (21-32); CREATININE 0.7 mg/dl (0.55-1.3); GLUCOSE,RANDOM 155 mg/dl (74-106); SODIUM 137 mmol/L (136-145)
--- NOTE | 2019-02-26 08:31 | EKG ---
Test Reason : Blood Pressure : / mmHG Vent. Rate : 066 BPM Atrial Rate : 066 BPM P-R Int : 174 ms QRS Dur : 084 ms QT Int : 428 ms P-R-T Axes : 002 033 059 degrees QTc Int : 448 ms NORMAL SINUS RHYTHM LOW VOLTAGE QRS SEPTAL INFARCT , AGE UNDETERMINED ABNORMAL ECG WHEN COMPARED WITH ECG OF 22-FEB-2019 15:23, [place] INTERVAL HAS DECREASED T WAVE AMPLITUDE HAS INCREASED IN LATERAL LEADS Confirmed by MD VANDA, SHALA ([id number]) on 02/26/2019 8:31:04 AM Referred By: DR STINSON Confirmed By:SHALA DC MD
[2019-02-26 08:36] LABS: BASO % 0.1 % (0-2.0); HEMATOCRIT 36.3 % (32.4-45.2); HEMOGLOBIN 11.9 GM/dl (10.7-15.3); LYMPH % 14.4 % (8-40); MCH 29.6 pg (25.7-33.7); MCHC 32.7 g/dl (32.0-36.0); MEAN CELL VOLUME 90.6 fl (80-96); MEAN PLT VOLUME 8.9 fl (7.5-11.1); MONO % 2.1 % (3.8-10.2); NEUT % 83.4 % (42.8-82.8); PLATELET COUNT 370 K/MM3 (134-434); RBC 4.01 M/mm3 (3.60-5.2); RDW 13.3 % (11.6-15.6); WHITE BLOOD COUNT 8.9 K/mm3 (4.0-10.8)
--- NOTE | 2019-02-26 09:44 | PN ---
Progress Note (short form) - Note Progress Note: PULMONARY CONSULTATION DICTATED 02/26/19 IMP COPD EXACERBATION HTN HLD MORBID OBESITY LIKELY OSAS PLAN IV STEROIDS INHALED BRONCHODILATORS PEAK FLOW SLEEP STUDIES OUTPATIENT DR JOHNSTON Problem List - Problems (1) COPD (chronic obstructive pulmonary disease) Code(s): J44.9 - CHRONIC OBSTRUCTIVE PULMONARY DISEASE, UNSPECIFIED Qualifiers: COPD type: COPD with acute exacerbation Qualified Code(s): J44.1 - Chronic obstructive pulmonary disease with (acute) exacerbation (2) Chronic obstructive pulmonary disease with acute exacerbation Code(s): J44.1 - CHRONIC OBSTRUCTIVE PULMONARY DISEASE W (ACUTE) EXACERBATION (3) DVT prophylaxis Code(s): [id number] - (4) Hyperlipidemia Code(s): E78.5 - HYPERLIPIDEMIA, UNSPECIFIED (5) Hypertension Code(s): I10 - ESSENTIAL (PRIMARY) HYPERTENSION Qualifiers: Hypertension type: essential hypertension Qualified Code(s): I10 - Essential (primary) hypertension (6) Obesity Code(s): E66.9 - OBESITY, UNSPECIFIED Qualifiers: Body mass index: BMI 45.0-49.9
[2019-02-26] MEDS: HEPARIN NA (PORCINE) 5,000 UNITS/ML 1ML VIAL SQ SCH (09:56)
[2019-02-26] MEDS ORDERED: ALBUTEROL SO4 0.083% IH SOL 2.5 MG/3 ML VIAL.NEB. NEB PRN (09:58)
[2019-02-26] MEDS ORDERED: CEFTRIAXONE 1 G/50 ML PREMIX 50 ML IVPB SCH (10:00)
[2019-02-26] MEDS ORDERED: AZITHROMYCIN IVPB 500 MG in DEXTROSE 5%-WATER - 250 ML IVPB SCH (10:00)
[2019-02-26] MEDS ORDERED: AZITHROMYCIN IVPB 500 MG/250 ML BAG IVPB SCH (10:00)
[2019-02-26] MEDS ORDERED: BUDESONIDE/FORMETEROL FUMARATE 160/4.5 mcg INHALER IH SCH (10:00)
[2019-02-26] MEDS ORDERED: CEFTRIAXONE 1 GM in DEXTROSE 5%-WATER - 50 ML IVPB SCH (10:00)
[2019-02-26] MEDS ORDERED: TIOTROPIUM BROMIDE 2.5 MCG (SPIRIVA) RESPIMAT INHALER IH SCH (10:15)
--- NOTE | 2019-02-26 11:05 | DS ---
Physical Exam: SUBJECTIVE: Patient seen and examined at bedside. Seen earlier ambulating in the hallway without oxygen. States she does not want to go home because she does not feel well. Feels she is wheezing. Feels there is heavy phlegm in her chest, "like [employer] green glue." OBJECTIVE: Vital Signs Period Temp Pulse Resp BP Sys/Negron Pulse Ox Last 24 Hr 97.3 F-97.7 F 75-76 18-20 127-135/53-77 94-96 PHYSICAL EXAM GENERAL: The patient is awake, alert, and fully oriented, in no acute distress. LUNGS: Trachael breath sounds/wheezing; lungs are CTA, no bronchovesicular adventitious sounds; no coughing HEART: Regular rate and rhythm, S1, S2 ABDOMEN: Soft, nontender, nondistended EXTREMITIES: 2+ pulses, warm, well-perfused, no edema. NEUROLOGICAL: Cranial nerves II through XII grossly intact. Normal speech, steady gait. Laboratory Results - last 24 hr 02/25/19 02/25/19 02/25/19 18:40 18:40 18:40 WBC 10.5 RBC 4.32 Hgb 12.8 Hct 38.7 MCV 89.4 MCH 29.5 MCHC 33.0 RDW 13.6 Plt Count 414 MPV 8.7 Absolute Neuts (auto) 8.1 Neutrophils % 77.0 Lymphocytes % 15.7 Monocytes % 5.6 Eosinophils % 1.5 Basophils % 0.2 Sodium 135 L Potassium 4.2 Chloride 99 Carbon Dioxide 24 Anion Gap 12 BUN 23 H Creatinine 0.8 Creat Clearance w eGFR 71.76 Random Glucose 143 H Calcium 8.6 Magnesium 1.9 Total Bilirubin 0.4 AST 20 ALT 19 Alkaline Phosphatase 63 D Troponin I < 0.03 B-Natriuretic Peptide 806.2 H Total Protein 6.3 L Albumin 3.5 Influenza A (Rapid) Influenza B (Rapid) 02/25/19 02/26/19 02/26/19 22:45 07:10 07:10 WBC 8.9 RBC 4.01 Hgb 11.9 Hct 36.3 MCV 90.6 MCH 29.6 MCHC 32.7 RDW 13.3 Plt Count 370 MPV 8.9 Absolute Neuts (auto) 7.4 Neutrophils % 83.4 H Lymphocytes % 14.4 Monocytes % 2.1 L Eosinophils % 0.0 Basophils % 0.1 Sodium 137 Potassium 5.0 Chloride 103 Carbon Dioxide 24 Anion Gap 10 BUN 24 H Creatinine 0.7 Creat Clearance w eGFR 83.72 Random Glucose 155 H Calcium 8.7 Magnesium Total Bilirubin AST ALT Alkaline Phosphatase Troponin I B-Natriuretic Peptide Total Protein Albumin Influenza A (Rapid) Negative Influenza B (Rapid) Negative HOSPITAL COURSE: Date of Admission:02/25/19 Date of Discharge: 02/26/19 68 year-old female with a PMH significant for HTN, HLD, COPD, and recurrent diverticulitis s/p sigmoid resection (2018). Patient presented to the ED on 02/22 complaining of cough and chest tightness. She was treated for a COPD flare and prescribed levofloxacin and a Medrol dose jocy. Patient felt she did not improve and returned to the ED on 02/25/19. Patient was afebrile with no leukocytosis. Serial CXRs were unremarkable. Patient was treated with IV steroids and discharged on a PO taper. She was seen by Dr. Jordan, court bailiff or sheriff, who recommended patient take her previously prescribed Spiriva inhaler BID. Patient acknowledged she was not using Spiriva daily, only when she felt she needed it. Patient was seen by EZRA Aguilera who did not recommend further antibiotics. Minutes to complete discharge: 35 Discharge Summary Reason For Visit: CHRONIC OBSTRUCTIVE PULMONARY DISEASE W (ACUTE) EX Current Active Problems COPD (chronic obstructive pulmonary disease) (Acute) Pneumonia (Acute) Condition: Improved - Instructions Diet, Activity, Other Instructions: A prescription has been sent to your pharmacy for prednisone. Take this medication as directed and be sure to finish all the medication. It is recommended you use your previously prescribed Sprivia inhaler, two puffs twice a day. It is also recommended you follow up with your regular court bailiff or sheriff Dr. Caro at your earliest opportunity. Referrals: Clare Rodriguez MD [Primary Care Provider] - Al Caro MD [Staff Physician] - Disposition: HOME - Home Medications Comprehensive Discharge Medication List: Ambulatory Orders Quetiapine Fumarate [Seroquel -] 25 mg PO HS 03/01/15 Rosuvastatin Calcium [Crestor] 10 mg PO HS 03/01/15 Atenolol [Tenormin -] 25 mg PO DAILY #30 tablet 10/18/17 Sennosides [Senokot] 8.6 mg PO DAILY 01/12/18 Albuterol Sulfate Inhaler - [Ventolin Hfa Inhaler -] 2 inh PO Q4H #1 inh Budesonide/Formeterol Fumarate [SYMBICORT 80/4.5mcg -] 2 puff IH BID #1 inhaler 01/19/18 Docusate Sodium [Colace -] 100 mg PO TID #90 capsule 01/19/18 Famotidine [Pepcid] 20 mg PO DAILY #30 tablet 01/19/18 Lactobacillus Acidophilus [Bacid -] 1 tab PO DAILY tab 01/19/18 Nebulizer [Aeroeclipse II] 1 each MC DAILY #1 each 01/19/18 Sennosides [Senna -] 2 tab PO DAILY #90 tablet 01/19/18 Amoxicillin/Potassium Clav [Augmentin 875-125 Tablet] 1 each PO BID #14 tablet 02/22/19 Bifidobacterium Infantis [Align] 10.5 mg PO DAILY PRN #30 tab.chew 02/22/19 levoFLOXacin [Levaquin -] 500 mg PO DAILY #5 tablet 02/22/19 predniSONE [Deltasone -] 60 mg PO DAILY #12 tablet 02/22/19 Zolpidem Tartrate [Ambien] 5 mg PO HS PRN MDD 1 02/25/19 Tiotropium [place] [Spiriva] 1 puff IH BID PRN 02/26/19 This patient is new to me today: Yes Date on this admission: 02/26/19 Emergency Visit: Yes ED Registration Date: 02/25/19 Care time: The patient presented to the Emergency Department on the above date and was hospitalized for further evaluation of their emergent condition. Critical Care patient: No - Discharge Referral Referred to [facility] No
--- NOTE | 2019-02-26 11:24 | CONS ---
DATE OF CONSULTATION: DATE OF DICTATION: 02/26/2019 REFERRING PROVIDER: Gissell Schafer NP HISTORY OF PRESENT ILLNESS: The patient is a 68-year-old white female with a past medical history of COPD, hypertension, hyperlipidemia, questionable obstructive sleep apnea, [facility] with increasing shortness of breath, cough, and bronchospasm. Patient states that she initially developed the symptoms in August after returning home from [employer]. At the time, she had shortness of breath and cough. She is being treated with multiple courses of antibiotics which initially offered some improvement. Approximately 2 weeks prior to this hospitalization, she developed cough and chest congestion, she went to a PMD who gave her amoxicillin without any improvement. She went back to her PMD and was prescribed Levaquin again, which offered minimal to no improvement. The patient went to the emergency room on Monday prior to this admission secondary to URI symptoms. At the time, she was advised being hospitalized, but she refused. She was prescribed prednisone, albuterol, and discharged home. Patient comes back now with increasing shortness of breath, dyspnea with exertion, cough nonproductive, and wheezing. She denies any chest pain, palpitations. She denied any nausea, vomiting, or diaphoresis. She denied hemoptysis. She denies any fevers. She has occasional chills. The patient has history of tobacco use approximately 1-2 packs per day for many years. She quit 2 years ago. There is no history of occupational exposure to chemical fumes. There is no history of DVT or PE in the past. There is no history of respiratory failure in the past requiring ventilatory support. PAST MEDICAL HISTORY: Again includes COPD, hypertension, hyperlipidemia, and questionable sleep disorder. REVIEW OF SYSTEMS: Positive for dyspnea. Positive for cough. Positive for wheezing. No chest pain, no palpitations, no nausea, no vomiting, no hemoptysis. Positive for lower extremity edema. CURRENT MEDICATIONS: Include Spiriva, methylprednisolone, Zithromax, heparin, Seroquel, Ambien, Duo-Neb, ceftriaxone, and Crestor. PHYSICAL EXAMINATION: General: The patient is an obese female, white, awake, alert, in no acute distress. Vital signs: She is afebrile, temperature pressure is 97.7, O2 saturation is 95 % on room air, blood pressure 127/53, respiratory rate 19, HEENT: Head is normocephalic atraumatic. Neck: Supple. Heart: Regular with S1, S2. Chest: Bilateral wheezes. Abdomen: Soft. Bowel sounds positive. Extremities: Bilateral lower extremity edema. LABORATORIES: WBC is 8.9, hemoglobin 11.9, hematocrit 36.3, platelet count of 370,000, there are 83 neutrophils and 2 monocytes. BUN 24, creatinine 0.7, BNP 806. Chest x-ray no infiltrates, no effusions. Patient had a CT scan of the chest on December 28, 2018, with no evidence of acute disease, no nodules, no masses. Echocardiogram performed in February of 2018 reveals normal left ventricular size and function, normal RV size, no evidence of significant pulmonary hypertension. IMPRESSION: 1. Chronic obstructive pulmonary disease with acute exacerbation. 2. Hypertension. 3. Hyperlipidemia. 4. Morbid obesity. 5. Likely obstructive sleep apnea. PLAN: IV steroids, inhaled bronchodilator, monitor peak flow, formal sleep study as an outpatient, yearly low-dose CT scan of the chest for lung cancer screening. MARIANA JOHNSTON M.D. [id number] MTDD
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
[2019-02-26] MEDS ORDERED: SENNOSIDES 8.6MG TABLET (FP) PO SCH (12:30)
[2019-02-26] MEDS ORDERED: ATENOLOL 25 MG TABLET (FP) PO SCH (12:45)
[2019-02-26] MEDS ORDERED: DOCUSATE SODIUM 100 MG CAPSULE (FP) PO SCH (14:00)
[2019-02-26] MEDS ORDERED: PT OWN MED DRAWER 7, Y5N ONE (14:08)
[2019-02-26 14:16] VITALS: BP 126/57; PULSE 60; TEMP 98.6
[2019-02-26] MEDS ORDERED: NYSTATIN POWDER 100,000 UNITS/GM - 15 GM TOPICAL POWDER TP SCH (22:00)
== END 2019-02-26 17:31 | disposition home or self-care (01) | DRG 191 ==
LOC: FER 17:45 → FM/S 19:17
PROVIDERS: ADMIT Internal Medicine; ATTEND Nurse Practitioner Acute Care
DX: J44.1 Chronic obstructive pulmonary disease with (acute) exacerbation (principal); Z68.42 Body mass index [BMI] 45.0-49.9, adult; E78.5 Hyperlipidemia, unspecified; I10 Essential (primary) hypertension; R73.03 Prediabetes; K57.90 Diverticulosis of intestine, part unspecified, without perforation or abscess without bleeding; E66.01 Morbid (severe) obesity due to excess calories; G47.33 Obstructive sleep apnea (adult) (pediatric); F32.9 Major depressive disorder, single episode, unspecified
CPT/HCPCS: 36415; 71046-TC-FY; 80048; 80053; 83735; 83880; 84484; 85025; 87040; 87804; 93005; 94761; 99284-25; J1644